=== PATIENT | male | born 1955 | race Caucasian/White ===

== ENCOUNTER → 2016-07-19 | Outpatient (REF) | payer BC ==
[~2016-07-19] MED LIST: AMLO5TAB2 PO; ASPI81TA85 PO; CIPR500T89 PO; CRES40TA PO; FLOM5CAP PO; LOSA25TA8 PO; LOSA50TA20 PO; OMEP40CA2 PO; PROS5TAB PO; PYRI200T5 PO
== END ==
LOC: M SMT 16:58
PROVIDERS: ATTEND Nurse Practitioner Women's Health
DX: Z00.00 Encounter for general adult medical examination without abnormal findings (principal)

== ENCOUNTER → 2016-08-03 | Outpatient (CLI) | payer BC ==
[2016-08-03 15:13] LABS: MEAN CORPUSCULAR HEMOGLOBIN 29.1 pg (27.0-33.0); MEAN CORPUSCULAR HGB CONC 33.5 g/dl (32.0-36.5); MEAN CORPUSCULAR VOLUME 86.8 fl (80.0-96.0); RED CELL DISTRIBUTION WIDTH 12.9 % (11.5-14.5); WHITE BLOOD COUNT 6.7 K/mm3 (4.0-10.0)
[2016-08-03 15:27] LABS: ANION GAP 6 MEQ/L (8-16); BLOOD UREA NITROGEN 20 MG/DL (7-18); CALCIUM LEVEL 8.9 MG/DL (8.5-10.1); CARBON DIOXIDE LEVEL 29 MEQ/L (21-32); CHLORIDE LEVEL 105 MEQ/L (98-107); CREATININE FOR GFR 1.06 MG/DL (0.70-1.30); GLOMERULAR FILTRATION RATE > 60.0 (>56); GLUCOSE, FASTING 105 MG/DL (70-105); POTASSIUM SERUM 4.1 MEQ/L (3.5-5.1); SODIUM LEVEL 140 MEQ/L (136-145)
--- NOTE | 2016-08-03 15:43 | REP ---
Chest two views HISTORY: Preoperative Comparison: 01/17/2016 The lungs are clear. The heart is normal in size. The pulmonary vasculature is normal in appearance. The bony structure is intact. IMPRESSION: No acute disease. Signed by Lionel King MD 08/03/2016 03:35 P
--- NOTE | 2016-08-03 17:39 | ECGEPIP ---
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 Prominent R waves in V2 and V3; RVH versus prior PWMI. Subtle nonspecific ST/T-wave abnormalities Not significant change from 01/17/16. Electronically Signed On 08-03-2016 17:39:43 EST by Dragan Morillo
== END ==
LOC: M LAB 14:42
PROVIDERS: ATTEND Urology
DX: Z01.818 Encounter for other preprocedural examination (principal)

== ENCOUNTER → 2016-08-10 | Outpatient (REF) | payer BC | LOC: M LAB REF 19:21 | PROVIDERS: ATTEND Urology | DX: N32.0 Bladder-neck obstruction (principal); Z01.818 Encounter for other preprocedural examination ==

== ENCOUNTER → 2016-08-18 | Day surgery (SDC) | payer BC ==
[~2016-08-18] VITALS: Ht 175.3 cm; Wt 109.3 kg
[~2016-08-18] MED LIST changes: +ACETAMINOPHEN TAB 650MG DOSE (2X325MG) PO PRN; +GENTAMICIN 80 MG in APPROPRIATE DILUENT 1 EA IV ONE; +KETOROLAC 60 MG/2 ML VIAL (J1885) As Ordered ONE; +LIDOCAINE 2% INJ 100 MG/5 ML SDV (FOR ANES.) As Ordered ONE; +LR 1,000 ML IV SCH; +MIDAZOLAM INJ 2 MG/2 ML VIAL (J2250) As Ordered ONE; +ONDANSETRON 4MG/2ML VIAL (J2405) As Ordered ONE; +ONDANSETRON 4MG/2ML VIAL (J2405) IV PRN; +PERCOCET 5MG/325MG TAB PO PRN; +PROPOFOL 500 MG/50 ML VIAL As Ordered ONE; +VANCOMYCIN HCL 1,000 MG, VIAL MATE ADAPTER 1 EACH in D5W 250 ML IV ONE; +dexameTHASONE 4 MG/ML 1ML VIAL (J1100) As Ordered ONE; +fentaNYL 100 MCG/2 ML INJECTION (J3010) As Ordered ONE; +fentaNYL 100 MCG/2 ML INJECTION (J3010) IV PRN; +oxyBUTYnin 5 MG TAB PO PRN
[2016-08-18 13:00] VITALS: BP 147/94
--- NOTE | 2016-08-19 10:41 | RO ---
DATE OF PROCEDURE: 08/18/2016 PREPROCEDURE DIAGNOSIS: Bladder neck contracture. POSTPROCEDURE DIAGNOSIS: Bladder neck contracture. OPERATIVE PROCEDURE: Cystoscopy, button transurethral electrovaporization of the bladder neck. SURGEON: Thony Morales MD EXPORT PACKER: None. ANESTHESIA: General. OPERATIVE INDICATIONS: This is a 61-year-old male who underwent a cystoscopy with button transurethral electrovaporization of the prostate approximately 3-4 months ago. Since that time, he has developed increased lower urinary tract symptoms including productive voiding symptoms. He had a cystoscopy done in the office recently that was notable for a very narrow caliber bladder neck contracture. It was recommended that he be brought to the operating room today for the above listed procedure. DESCRIPTION OF PROCEDURE: The patient was brought to the operating room and general anesthesia was induced. Culture specific antibiotics were infused. He was then placed in dorsal lithotomy position, prepped and draped in usual sterile fashion. At this point, the button resectoscope was inserted into urethral meatus and advanced into the prosthetic urethra. At this point, there was a very narrow caliber bladder neck contracture which I could not advance the scope through. At this point, I began vaporizing this tissue circumferentially until there was a nice wide open channel into the bladder. I tried not to use too much cautery to try to preserve vascularity. At this point, the button resectoscope was removed and #18-Tunisian Venegas catheter was inserted into the bladder and the balloon was filled with 15 mL of sterile water. At the end of the procedure, the fluid drained clear. The catheter was connected to gravity drainage. This marked the conclusion of the procedure. The patient was then taken out of dorsal lithotomy position, awakened from anesthesia, transported to the recovery room in stable condition. ESTIMATED BLOOD LOSS: 0 mL. COMPLICATIONS: None. SPECIMENS: None. PLAN: The patient will be discharged home with catheter in place. He will followup in the clinic next week for catheter removal and a voiding trial. ANA ROSA
== END | disposition home or self-care (01) ==
LOC: M SDC 07:47
PROVIDERS: ATTEND Urology
DX: N32.0 Bladder-neck obstruction (principal); N40.0 Benign prostatic hyperplasia without lower urinary tract symptoms; R35.0 Frequency of micturition; E78.5 Hyperlipidemia, unspecified; K21.9 Gastro-esophageal reflux disease without esophagitis; I10 Essential (primary) hypertension; M25.561 Pain in right knee; M25.562 Pain in left knee; G47.33 Obstructive sleep apnea (adult) (pediatric); F10.10 Alcohol abuse, uncomplicated; R06.02 Shortness of breath; R06.83 Snoring; Z88.8 Allergy status to other drugs, medicaments and biological substances; Z79.899 Other long term (current) drug therapy; Z87.891 Personal history of nicotine dependence
CPT/HCPCS: 52214; J0690; J1100; J1580; J1885; J2250; J2405; J3010; J3370

== ENCOUNTER → 2016-09-07 | Outpatient (REF) | payer BC ==
[~2016-09-07] MED LIST changes: -ACETAMINOPHEN TAB 650MG DOSE (2X325MG) PO PRN; -GENTAMICIN 80 MG in APPROPRIATE DILUENT 1 EA IV ONE; -KETOROLAC 60 MG/2 ML VIAL (J1885) As Ordered ONE; -LIDOCAINE 2% INJ 100 MG/5 ML SDV (FOR ANES.) As Ordered ONE; -LR 1,000 ML IV SCH; -MIDAZOLAM INJ 2 MG/2 ML VIAL (J2250) As Ordered ONE; -ONDANSETRON 4MG/2ML VIAL (J2405) As Ordered ONE; -ONDANSETRON 4MG/2ML VIAL (J2405) IV PRN; -PERCOCET 5MG/325MG TAB PO PRN; -PROPOFOL 500 MG/50 ML VIAL As Ordered ONE; -VANCOMYCIN HCL 1,000 MG, VIAL MATE ADAPTER 1 EACH in D5W 250 ML IV ONE; -dexameTHASONE 4 MG/ML 1ML VIAL (J1100) As Ordered ONE; -fentaNYL 100 MCG/2 ML INJECTION (J3010) As Ordered ONE; -fentaNYL 100 MCG/2 ML INJECTION (J3010) IV PRN; -oxyBUTYnin 5 MG TAB PO PRN
== END ==
LOC: M SMT 16:57
PROVIDERS: ATTEND Urology
DX: R30.0 Dysuria (principal)

== ENCOUNTER → 2017-01-05 | Outpatient (REF) | payer BC ==
[~2017-01-05] MED LIST changes: +CIPR-249 PO; -CIPR500T89 PO; +PYRI1TAB5 PO; -PYRI200T5 PO
[2017-01-05 20:00] LABS: ALBUMIN 3.7 GM/DL (3.2-5.2); ALBUMIN/GLOBULIN RATIO 1.23 (1.00-1.93); ALKALINE PHOSPHATASE 77 U/L (45-117); ALT/SGPT 25 U/L (12-78); ANION GAP 8 MEQ/L (8-16); AST/SGOT 15 U/L (15-37); BILIRUBIN,TOTAL 0.9 MG/DL (0.2-1.0); BLOOD UREA NITROGEN 21 MG/DL (7-18); CALCIUM LEVEL 9.2 MG/DL (8.5-10.1); CARBON DIOXIDE LEVEL 29 MEQ/L (21-32); CHLORIDE LEVEL 105 MEQ/L (98-107); CHOLESTEROL LEVEL 186 MG/DL (<200); CREATININE FOR GFR 1.03 MG/DL (0.70-1.30); FREE T4 1.05 NG/DL (0.76-1.46); GLOMERULAR FILTRATION RATE > 60.0 (>56); GLUCOSE, FASTING 95 MG/DL (70-105); MAGNESIUM LEVEL 2.2 MG/DL (1.8-2.4); POTASSIUM SERUM 3.5 MEQ/L (3.5-5.1); SODIUM LEVEL 142 MEQ/L (136-145); TOTAL PROTEIN 6.7 GM/DL (6.4-8.2); TRIGLYCERIDES LEVEL 196 MG/DL (<150)
== END ==
LOC: M SFHCADAM 15:33
PROVIDERS: ATTEND Physician Assistant
DX: I10 Essential (primary) hypertension (principal); R25.2 Cramp and spasm; G56.03 Carpal tunnel syndrome, bilateral upper limbs; R20.0 Anesthesia of skin; R73.01 Impaired fasting glucose; E78.4 Other hyperlipidemia

== ENCOUNTER → 2017-02-01 | Outpatient (REF) | payer BC ==
[2017-02-01 17:07] LABS: BASO % 0.3 % (0.0-1.0); EOS % 0.4 % (0.0-3.0); LARGE UNSTAINED CELL # 0.1 K/mm3 (0.0-0.4); LARGE UNSTAINED CELL % 1.4 % (0.0-4.0); LYMPH # 1.4 K/mm3 (1.5-4.5); LYMPH % 17.7 % (24.0-44.0); MEAN CORPUSCULAR HEMOGLOBIN 31.6 pg (27.0-33.0); MEAN CORPUSCULAR HGB CONC 34.9 g/dl (32.0-36.5); MEAN CORPUSCULAR VOLUME 90.5 fl (80.0-96.0); MONO # 0.4 K/mm3 (0.0-0.8); MONO % 5.5 % (0.0-5.0); NEUTROPHILS # 5.8 K/mm3 (1.8-7.7); NEUTROPHILS % 74.8 % (36.0-66.0); PLATELET COUNT, AUTOMATED 197 k/mm3 (150-450); RED CELL DISTRIBUTION WIDTH 13.1 % (11.5-14.5); WHITE BLOOD COUNT 7.8 K/mm3 (4.0-10.0)
[2017-02-01 17:55] LABS: URIC ACID 6.1 MG/DL (3.5-7.2)
[2017-02-01 18:11] LABS: ERYTHROCYTE SEDIMENTATION RATE 4 mm/hr (0-20)
[2017-02-04 00:06] LABS: Lyme Disease IgG/IgM Antibodie <0.91 ISR (0.00-0.90); Lyme Disease IgM Ab Quantitati <0.80 index (0.00-0.79)
== END ==
LOC: M LAB REF 15:46
PROVIDERS: ATTEND Physician Assistant Surgical
DX: M19.031 Primary osteoarthritis, right wrist (principal)

== ENCOUNTER → 2017-07-31 | Outpatient (REF) | payer BC ==
[2017-07-31 12:45] LABS: HEMATOCRIT 42.6 % (42.0-52.0); HEMOGLOBIN 14.5 g/dl (14.0-18.0); MEAN CORPUSCULAR HEMOGLOBIN 29.8 pg (27.0-33.0); MEAN CORPUSCULAR VOLUME 87.7 fl (80.0-96.0); PLATELET COUNT, AUTOMATED 171 10^3/uL (150-450); RED BLOOD COUNT 4.86 10^6/uL (4.30-6.10); RED CELL DISTRIBUTION WIDTH 12.4 % (11.5-14.5); WHITE BLOOD COUNT 6.9 10^3/uL (4.0-10.0)
[2017-07-31 13:06] LABS: ALBUMIN 4.1 GM/DL (3.2-5.2); ALBUMIN/GLOBULIN RATIO 1.24 (1.00-1.93); ALKALINE PHOSPHATASE 82 U/L (45-117); ALT/SGPT 28 U/L (12-78); ANION GAP 7 MEQ/L (8-16); AST/SGOT 17 U/L (7-37); BILIRUBIN,TOTAL 0.7 MG/DL (0.2-1.0); BLOOD UREA NITROGEN 18 MG/DL (7-18); CALCIUM LEVEL 9.4 MG/DL (8.8-10.2); CARBON DIOXIDE LEVEL 32 MEQ/L (21-32); CHLORIDE LEVEL 101 MEQ/L (98-107); CHOLESTEROL LEVEL 176 MG/DL (<200); CHOLESTEROL RISK RATIO 2.588 (<5); CREATININE FOR GFR 0.87 MG/DL (0.70-1.30); GLOMERULAR FILTRATION RATE > 60.0 (>49); GLUCOSE, FASTING 106 MG/DL (70-100); HDL CHOLESTEROL 68 MG/DL (>40); LDL CHOLESTEROL 62.6 MG/DL (<100); NON-HDL-C 108 MG/DL; POTASSIUM SERUM 4.8 MEQ/L (3.5-5.1); SODIUM LEVEL 140 MEQ/L (136-145); TOTAL PROTEIN 7.4 GM/DL (6.4-8.2); TRIGLYCERIDES LEVEL 227 MG/DL (<150)
[2017-07-31 13:11] LABS: ESTIMATED AVERAGE GLUCOSE 120 MG/DL (60-110); HEMOGLOBIN A1c 5.8 %
== END ==
LOC: M SFHCADAM 09:17
DX: R73.01 Impaired fasting glucose (principal); I10 Essential (primary) hypertension; E78.5 Hyperlipidemia, unspecified
CPT/HCPCS: 80053

== ENCOUNTER → 2017-08-10 | Outpatient (CLI) | payer BC | LOC: M ADAMS 08:50 | DX: S20.212A Contusion of left front wall of thorax, initial encounter (principal); X58.XXXA Exposure to other specified factors, initial encounter; Y92.89 Other specified places as the place of occurrence of the external cause | CPT/HCPCS: 71101 ==

== ENCOUNTER → 2017-10-11 | Outpatient (CLI) | payer BC | LOC: M ADAMS 13:49 | DX: M19.011 Primary osteoarthritis, right shoulder (principal); M25.552 Pain in left hip | CPT/HCPCS: 73030 ==

== ENCOUNTER → 2018-02-03 | Outpatient (REF) | payer BC | LOC: M LAB REF 09:28 | DX: N41.0 Acute prostatitis (principal) | CPT/HCPCS: 87086 ==

== ENCOUNTER → 2018-03-06 | Outpatient (REF) | payer BC ==
[2018-03-07 13:42] LABS: APPEARANCE, URINE CLEAR (CLEAR); BACTERIA, URINE AUTO NEGATIVE (NEGATIVE); BILIRUBIN, URINE AUTO NEGATIVE (NEGATIVE); BLOOD, URINE BLOOD NEGATIVE (NEGATIVE); COLOR, URINE STRAW (YELLOW); GLUCOSE, URINE (UA) AUTO NEGATIVE (NEGATIVE); KETONE, URINE AUTO NEGATIVE (NEGATIVE); LEUKOCYTE ESTERASE, URINE AUTO NEGATIVE (NEGATIVE); NITRITE, URINE AUTO NEGATIVE (NEGATIVE); PROTEIN, URINE AUTO NEGATIVE (NEGATIVE); RBC, URINE AUTO 0 /HPF (0-3); SPECIFIC GRAVITY URINE AUTO 1.013 (1.002-1.035); SQUAMOUS EPITHELIAL CELL UR AU 0 /HPF (0-6); UROBILINOGEN, URINE AUTO 0.2 mg/dL (0.0-2.0); WBC, URINE AUTO 3 /HPF (0-3)
== END ==
LOC: M SMT 03-07 12:59
DX: R30.0 Dysuria (principal)
CPT/HCPCS: 81001

== ENCOUNTER → 2018-03-08 | Outpatient (REF) | payer BC ==
[2018-03-08 14:23] LABS: APPEARANCE, URINE CLEAR (CLEAR); BACTERIA, URINE AUTO NEGATIVE (NEGATIVE); BILIRUBIN, URINE AUTO NEGATIVE (NEGATIVE); BLOOD, URINE BLOOD NEGATIVE (NEGATIVE); COLOR, URINE AMBER (YELLOW); GLUCOSE, URINE (UA) AUTO NEGATIVE (NEGATIVE); KETONE, URINE AUTO NEGATIVE (NEGATIVE); LEUKOCYTE ESTERASE, URINE AUTO NEGATIVE (NEGATIVE); MUCUS, URINE SMALL (NEGATIVE); NITRITE, URINE AUTO POSITIVE (NEGATIVE); PROTEIN, URINE AUTO NEGATIVE (NEGATIVE); RBC, URINE AUTO 0 /HPF (0-3); SPECIFIC GRAVITY URINE AUTO 1.015 (1.002-1.035); SQUAMOUS EPITHELIAL CELL UR AU 0 /HPF (0-6); WBC, URINE AUTO 6 /HPF (0-3)
== END ==
LOC: M SMT 13:26
DX: R30.0 Dysuria (principal)
CPT/HCPCS: 81001

== ENCOUNTER → 2018-06-14 | Outpatient (REF) | payer BC ==
[~2018-06-14] MED LIST changes: -AMLO5TAB2 PO; +AMLO5TAB6 PO; +FLOM0.4C39 PO; -FLOM5CAP PO; +LOSA25TA14 PO; -LOSA25TA8 PO; -LOSA50TA20 PO; +LOSA50TA88 PO
[2018-06-14 18:12] LABS: APPEARANCE, URINE MANUAL HAZY (CLEAR); COLOR, URINE MANUAL LT YELLOW (YELLOW); SPECIFIC GRAVITY,URINE MANUAL 1.025 (1.002-1.035)
[2018-06-14 18:13] LABS: BILIRUBIN, URINE MANUAL NEGATIVE (NEGATIVE); BLOOD URINE MANUAL POSITIVE (NEGATIVE); GLUCOSE, URINE (UA) MANUAL NEGATIVE (NEGATIVE); KETONE, URINE MANUAL NEGATIVE (NEGATIVE); LEUKOCYTE ESTERASE, URINE MAN POSITIVE (NEGATIVE); NITRITE, URINE MANUAL POSITIVE (NEGATIVE); PROTEIN, URINE MANUAL TRACE mg/dL (NEGATIVE); UROBILINOGEN, URINE MANUAL NORMAL (NORMAL)
[2018-06-14 18:14] LABS: BACTERIA, URINE LARGE AMOUNT; HYALINE CAST, URINE NONE SEEN /lpf (0-1); SQUAMOUS EPITHELIAL CELL URINE SMALL AMOUNT /hpf (SMALL AMT)
== END ==
LOC: M SMT 16:43
PROVIDERS: ATTEND Urology
DX: R30.0 Dysuria (principal)

== ENCOUNTER → 2018-07-01 | Outpatient (REF) | payer BC ==
[2018-07-01 20:19] LABS: APPEARANCE, URINE HAZY (CLEAR); BACTERIA, URINE AUTO NEGATIVE (NEGATIVE); BILIRUBIN, URINE AUTO NEGATIVE (NEGATIVE); BLOOD, URINE BLOOD 3+ (NEGATIVE); COLOR, URINE YELLOW (YELLOW); GLUCOSE, URINE (UA) AUTO NEGATIVE (NEGATIVE); KETONE, URINE AUTO NEGATIVE (NEGATIVE); LEUKOCYTE ESTERASE, URINE AUTO TRACE (NEGATIVE); MUCUS, URINE SMALL (NEGATIVE); NITRITE, URINE AUTO NEGATIVE (NEGATIVE); PROTEIN, URINE AUTO 1+ mg/dL (NEGATIVE); RBC, URINE AUTO TNTC /HPF (0-3); SQUAMOUS EPITHELIAL CELL UR AU 0 /HPF (0-6); UROBILINOGEN, URINE AUTO 0.2 mg/dL (0.0-2.0); WBC, URINE AUTO 6 /HPF (0-3)
== END ==
LOC: M LAB REF 12:04
PROVIDERS: ATTEND Urology
DX: R30.0 Dysuria (principal)

== ENCOUNTER → 2018-07-15 | Outpatient (REF) | payer BC | LOC: M SMT 17:54 | PROVIDERS: ATTEND Urology | DX: R30.0 Dysuria (principal) ==

== ENCOUNTER → 2018-09-27 | Outpatient (REF) | payer BC | LOC: M SMT 17:17 | PROVIDERS: ATTEND Urology | DX: R35.0 Frequency of micturition (principal) ==

== ENCOUNTER 2018-10-12 10:19 | Emergency (ER) | payer BC ==
[~2018-10-12] VITALS: Ht 175.3 cm; Wt 106.8 kg
[2018-10-12] MEDS ORDERED: IBUPROFEN 800 MG TAB PO ONE (10:45)
[2018-10-12] MEDS ORDERED: ROBA500T PO (11:42)
[2018-10-12] MEDS ORDERED: NORC1TAB7 PO ×2 (11:42→11:43)
--- NOTE | 2018-10-12 11:43 | REP ---
LUMBAR SPINE, FIVE VIEWS: HISTORY: Back pain. There is no acute fracture or subluxation. The L3-4 through L5-S1 intervertebral discs are decreased in height consistent with disc degeneration. Osteophytes are present throughout the lumbar spine. A 2.2 cm calcification is present in the midline pelvis. This may represent prostatic calcification. IMPRESSION: Degenerative change as described above. Electronically Signed by Lionel King MD 10/12/2018 11:49 A
[2018-10-12 11:45] VITALS: BP 142/84
== END 2018-10-12 11:50 | disposition home or self-care (01) ==
LOC: M ED 10:19
DX: S39.012A Strain of muscle, fascia and tendon of lower back, initial encounter (principal); M51.37 Other intervertebral disc degeneration, lumbosacral region; M47.897 Other spondylosis, lumbosacral region; I10 Essential (primary) hypertension; E78.9 Disorder of lipoprotein metabolism, unspecified; N40.0 Benign prostatic hyperplasia without lower urinary tract symptoms; G47.33 Obstructive sleep apnea (adult) (pediatric); Z79.899 Other long term (current) drug therapy; Z87.891 Personal history of nicotine dependence

== ENCOUNTER → 2018-10-15 | Outpatient (REF) | payer BC ==
[~2018-10-15] MED LIST changes: +NORC1TAB7 PO; +ROBA500T PO
[2018-10-15 18:50] LABS: APPEARANCE, URINE HAZY (CLEAR); BACTERIA, URINE AUTO NEGATIVE (NEGATIVE); BILIRUBIN, URINE AUTO NEGATIVE (NEGATIVE); BLOOD, URINE BLOOD 2+ (NEGATIVE); COLOR, URINE YELLOW (YELLOW); GLUCOSE, URINE (UA) AUTO NEGATIVE (NEGATIVE); KETONE, URINE AUTO NEGATIVE (NEGATIVE); LEUKOCYTE ESTERASE, URINE AUTO 3+ (NEGATIVE); MUCUS, URINE SMALL (NEGATIVE); NITRITE, URINE AUTO NEGATIVE (NEGATIVE); PROTEIN, URINE AUTO NEGATIVE (NEGATIVE); RBC, URINE AUTO 146 /HPF (0-3); SPECIFIC GRAVITY URINE AUTO 1.017 (1.002-1.035); SQUAMOUS EPITHELIAL CELL UR AU 0 /HPF (0-6); UROBILINOGEN, URINE AUTO 0.2 mg/dL (0.0-2.0); WBC, URINE AUTO TNTC /HPF (0-3)
== END ==
LOC: M SMT 17:16
PROVIDERS: ATTEND Nurse Practitioner Women's Health
DX: N39.0 Urinary tract infection, site not specified (principal)

== ENCOUNTER → 2018-11-01 | Outpatient (CLI) | payer BC ==
[2018-11-01 13:54] LABS: HEMATOCRIT 44.6 % (42.0-52.0); HEMOGLOBIN 14.8 g/dl (13.5-17.5); MEAN CORPUSCULAR HGB CONC 33.2 g/dl (32.0-36.5); MEAN CORPUSCULAR VOLUME 90.5 fl (80.0-96.0); PLATELET COUNT, AUTOMATED 174 10^3/uL (150-450); RED BLOOD COUNT 4.93 10^6/uL (4.30-6.10); WHITE BLOOD COUNT 7.2 10^3/uL (4.0-10.0)
[2018-11-01 14:05] LABS: INR 0.94; PARTIAL THROMBOPLASTIN TIME 25.1 SECONDS (25.4-37.6); PROTHROMBIN TIME 12.7 SECONDS (12.1-14.4)
[2018-11-01 14:17] LABS: APPEARANCE, URINE CLEAR (CLEAR); BACTERIA, URINE AUTO NEGATIVE (NEGATIVE); BILIRUBIN, URINE AUTO NEGATIVE (NEGATIVE); BLOOD, URINE BLOOD 3+ (NEGATIVE); COLOR, URINE YELLOW (YELLOW); GLUCOSE, URINE (UA) AUTO NEGATIVE (NEGATIVE); KETONE, URINE AUTO NEGATIVE (NEGATIVE); LEUKOCYTE ESTERASE, URINE AUTO NEGATIVE (NEGATIVE); NITRITE, URINE AUTO NEGATIVE (NEGATIVE); PROTEIN, URINE AUTO NEGATIVE (NEGATIVE); RBC, URINE AUTO TNTC /HPF (0-3); SPECIFIC GRAVITY URINE AUTO 1.014 (1.002-1.035); SQUAMOUS EPITHELIAL CELL UR AU 0 /HPF (0-6); UROBILINOGEN, URINE AUTO 0.2 mg/dL (0.0-2.0); WBC, URINE AUTO 2 /HPF (0-3)
[2018-11-01 14:48] LABS: BLOOD UREA NITROGEN 21 MG/DL (7-18); CALCIUM LEVEL 9.4 MG/DL (8.8-10.2); CARBON DIOXIDE LEVEL 28 MEQ/L (21-32); CHLORIDE LEVEL 106 MEQ/L (98-107); CREATININE FOR GFR 0.92 MG/DL (0.70-1.30); GLOMERULAR FILTRATION RATE > 60.0 (>49); GLUCOSE, FASTING 106 MG/DL (70-100); POTASSIUM SERUM 4.1 MEQ/L (3.5-5.1); SODIUM LEVEL 142 MEQ/L (136-145)
--- NOTE | 2018-11-01 15:17 | REP ---
REASON: Preoperative testing. COMPARISON: 08/03/2016. There has been no significant change since the prior exam. No acute patchy parenchymal opacities or pleural effusions have developed. The pleural angles are sharp and heart is not enlarged. The osseous structures are stable and intact. IMPRESSION: No evidence of acute cardiopulmonary disease. Stable findings compared to the prior exams. Electronically Signed by Fredy Connor DO 11/01/2018 06:09 P
== END ==
LOC: M SMT 11:11
PROVIDERS: ATTEND Urology
DX: N32.81 Overactive bladder (principal)

== ENCOUNTER → 2018-11-01 | Outpatient (CLI) | payer BC ==
--- NOTE | 2018-11-01 18:51 | ECGEPIP ---
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
== END ==
LOC: M EKG 11:49
PROVIDERS: ATTEND Urology
DX: N32.81 Overactive bladder (principal)

== ENCOUNTER 2018-11-06 09:39 | Day surgery (SDC) | payer BC ==
[~2018-11-06] VITALS: Ht 175.3 cm; Wt 109.7 kg
[~2018-11-06 09:39] MED LIST changes: +LIDOCAINE 1% MDV 20ML VIAL SQ PRN; +LR 1,000 ML IV ONE; +ceFAZolin SOD 1 GM in D5W MINI-BAG PLUS 50 ML IV ONE
[2018-11-06] MEDS ORDERED: ROCURONIUM BROMIDE 50 MG/5 ML VIAL As Ordered ONE (09:41)
[2018-11-06] MEDS ORDERED: LIDOCAINE 2% INJ 100 MG/5 ML SDV (FOR ANES.) As Ordered ONE ×2 (09:41→11:22)
[2018-11-06] MEDS ORDERED: PROPOFOL 200 MG/20 ML VIAL As Ordered ONE (09:41)
[2018-11-06] MEDS ORDERED: ONDANSETRON 4MG/2ML VIAL (J2405) As Ordered ONE (09:41)
[2018-11-06] MEDS ORDERED: dexameTHASONE 4 MG/ML 1ML VIAL (J1100) As Ordered ONE (09:41)
[2018-11-06] MEDS ORDERED: fentaNYL 100 MCG/2 ML INJECTION (J3010) As Ordered ONE (09:41)
[2018-11-06] MEDS ORDERED: MIDAZOLAM INJ 2 MG/2 ML VIAL (J2250) As Ordered ONE (09:41)
[2018-11-06] MEDS ORDERED: PHENYLephrine HCL 500 MCG/5 ML (100MCG/ML) SYRINGE (J2370) As Ordered ONE (17:15)
[2018-11-06] MEDS ORDERED: ePHEDrine SULFATE 25 MG/5 ML(5MG/ML) SYRINGE As Ordered ONE (17:32)
[2018-11-06] MEDS ORDERED: PERCOCET 5MG/325MG TAB PO PRN (18:15)
[2018-11-06] MEDS ORDERED: MEPERIDINE INJ 25 MG/ML VIAL (J2175) IV PRN (18:15)
[2018-11-06] MEDS ORDERED: LR 1,000 ML IV SCH (18:15)
[2018-11-06] MEDS ORDERED: METOCLOPRAMIDE INJ 10MG/2ML VIAL (J2765) IV PRN (18:15)
[2018-11-06] MEDS ORDERED: ACETAMINOPHEN TAB 650MG DOSE (2X325MG) PO PRN (18:15)
[2018-11-06] MEDS ORDERED: ONDANSETRON 4MG/2ML VIAL (J2405) IV PRN (18:15)
[2018-11-06] MEDS ORDERED: fentaNYL 100 MCG/2 ML INJECTION (J3010) IV PRN (18:15)
[2018-11-06 18:55] VITALS: BP 158/91
--- NOTE | 2018-11-07 14:53 | RO ---
DATE OF PROCEDURE: 11/06/2018 PREPROCEDURE DIAGNOSIS: Bladder neck contracture. POSTPROCEDURE DIAGNOSIS: Bladder neck contracture, bladder stone. PROCEDURE: Cystoscopy, direct vision internal urethrotomy, laser cystolitholapaxy. SURGEON: Thony Morales MD WEAPONS AND TACTICS INSTRUCTOR: None. ANESTHESIA: General. OPERATIVE INDICATIONS: This is a 63-year-old male with a history of benign prostatic hyperplasia previously treated with transurethral electrovaporization of prostate and has developed a bladder neck contracture previously. He was recently found to have another bladder contracture and was brought to the operating room today for the above listed procedure. DESCRIPTION OF PROCEDURE: The patient was brought to the operating room and general anesthesia was induced. Prophylactic antibiotics were infused. He was then placed in the dorsal lithotomy position, prepped and draped in the usual sterile fashion. At this point, resectoscope was inserted through the urethral meatus. The scope was then advanced towards the bladder neck and at the level of the bladder neck there was a pinpoint bladder neck contracture. I utilized the Gomes knife to incise the contracture at 12, 5, and 7 o'clock. I kept doing this until the bladder neck was wide open. There was pretty good hemostasis once I was done. Once the bladder neck was opened, the scope was advanced into the bladder where he was found to have an approximately 3.5 cm bladder stone. The stone was then fragmented to smaller pieces using a 1000 micron laser fiber. Once I was done fragmenting the stone, all the pieces were removed using an Ellik evacuator. Once all the fragments were removed, I once again looked at the bladder neck and confirmed good hemostasis and then scope was removed. At this point, an 18-Welsh Venegas catheter was inserted into the bladder. The balloon was filled with 10 mL of sterile water. The catheter was connected to gravity drainage. This marked conclusion of the procedure. The patient was then taken out of dorsal lithotomy position, awakened from anesthesia and sent to the recovery room in stable condition. Estimated blood loss was 5 mL. Complications: None. Specimens: Bladder stones. PLAN: The patient will followup in the clinic in approximately 1 week for catheter removal and voiding trial. ANA ROSA
[2018-11-14 00:10] LABS: COMMENT Note: (.)
== END 2018-11-06 19:00 | disposition home or self-care (01) ==
LOC: M SDC 09:39
PROVIDERS: ATTEND Urology
DX: N32.0 Bladder-neck obstruction (principal); N21.0 Calculus in bladder; I10 Essential (primary) hypertension; E78.5 Hyperlipidemia, unspecified; G47.30 Sleep apnea, unspecified; K21.9 Gastro-esophageal reflux disease without esophagitis; Z79.899 Other long term (current) drug therapy; Z88.8 Allergy status to other drugs, medicaments and biological substances; N40.0 Benign prostatic hyperplasia without lower urinary tract symptoms; E66.9 Obesity, unspecified
CPT/HCPCS: 52276; 52318; 82360; 88300; J0690; J1100; J2250; J2370; J2405; J3010

== ENCOUNTER → 2018-11-18 | Outpatient (REF) | payer BC ==
[~2018-11-18] MED LIST changes: -LIDOCAINE 1% MDV 20ML VIAL SQ PRN; -LR 1,000 ML IV ONE; -ceFAZolin SOD 1 GM in D5W MINI-BAG PLUS 50 ML IV ONE
== END ==
LOC: M LAB REF 12:44
PROVIDERS: ATTEND Physician Assistant
DX: N39.0 Urinary tract infection, site not specified (principal)

== ENCOUNTER 2018-12-27 09:49 | Inpatient (IN) | payer BC ==
[~2018-12-27] VITALS: Ht 172.7 cm; Wt 105.3 kg
[2018-12-27] MEDS ORDERED: ONDANSETRON 4MG/2ML VIAL (J2405) IV ONE (10:00)
[2018-12-27] MEDS ORDERED: KETOROLAC 30 MG/ML VIAL (J1885) IV ONE ×3 (10:00→21:00)
[2018-12-27] MEDS ORDERED: ACETAMINOPHEN 500 MG TAB PO ONE (10:00)
[2018-12-27] MEDS ORDERED: HYDR-3713 PO (10:32)
[2018-12-27] MEDS ORDERED: ASPI81TA85 PO (10:32)
--- NOTE | 2018-12-27 10:47 | REP ---
Lumbar spine series: Five views: History: Back pain with radiation to the left leg. Comparison study: October 12, 2018. Findings: Lumbar vertebral body heights are preserved. Alignment is normal. There is advanced degenerative disc disease with osteophyte formation anteriorly in the lower thoracic spine. Degenerative disc changes with anterior spurring are seen and L3-4, L4-5 and to a lesser extent, L5-S1. The 4-5 and 3-4 discs are slightly narrowed. These changes are radiographically stable from October 14, 2018 prior study. Normal caliber aorta is seen. There are two calcific opacities in the anterior upper abdomen. There is a calcification in the anterior pelvis as well. The previously noted bladder calculi have been removed. There is mild facet hypertrophy bilaterally at L4-5 and L5-S1. Sacrum and SI joints are intact. Psoas margins are symmetric. Impression: Degenerative spondylosis changes radiographically stable from October 12, 2018. Anterior abdominal and pelvic calcifications noted. Vascular calcification is noted. Electronically Signed by Charles Roa MD 12/27/2018 12:35 P
[2018-12-27 10:58] LABS: BASO % 0.1 % (0.0-1.0); EOS % 0.4 % (0.0-3.0); HEMATOCRIT 41.3 % (42.0-52.0); HEMOGLOBIN 14.6 g/dl (13.5-17.5); LYMPH # 1.4 10^3/uL (1.5-4.5); LYMPH % 20.2 % (24.0-44.0); MEAN CORPUSCULAR HEMOGLOBIN 30.8 pg (27.0-33.0); MEAN CORPUSCULAR HGB CONC 35.4 g/dl (32.0-36.5); MEAN CORPUSCULAR VOLUME 87.1 fl (80.0-96.0); MONO # 0.5 10^3/uL (0.0-0.8); MONO % 6.7 % (0.0-5.0); NEUTROPHILS # 4.9 10^3/uL (1.8-7.7); NEUTROPHILS % 72.3 % (36.0-66.0); PLATELET COUNT, AUTOMATED 186 10^3/uL (150-450); RED BLOOD COUNT 4.74 10^6/uL (4.30-6.10); WHITE BLOOD COUNT 6.8 10^3/uL (4.0-10.0)
[2018-12-27] MEDS ORDERED: MORPHINE 2 MG/ML 1ML SYRINGE (J2270) IV ONE ×3 (11:15→14:30)
[2018-12-27 11:20] LABS: ERYTHROCYTE SEDIMENTATION RATE 5 mm/hr (0-20)
--- NOTE | 2018-12-27 13:51 | REP ---
MRI LUMBAR SPINE WITHOUT CONTRAST: HISTORY: Back pain radiating to the left leg. Comparison radiographs are from December 27, 2018. TECHNIQUE: Sagittal and axial T1- and T2-weighted scans are acquired in the usual fashion with and without fat saturation. Sequences include spin echo, turbo spin echo, and STIR imaging sequences. MRI FINDINGS: Lumbar vertebral body heights are preserved. Alignment is normal. There is no evidence of spondylolysis or spondylolisthesis. No extra vertebral abnormality is appreciated. Normal caliber aorta. The tip of the conus medullaris is normal in position and appearance at T12-L1. Axial and sagittal images obtained at the L1-2 disc level show minimal diffuse disc bulging. No other abnormality. L2-L3, there is a small left posterior focal disc protrusion subtly indenting the ventral margin of the thecal sac. No central canal stenosis is noted. No neural foraminal encroachment is seen. At L3-4, there is degenerative disc narrowing. There is diffuse disc bulging. Ligamentum flavum and facet hypertrophy are present. Canal size at L3-4 is minimally narrowed due to these factors in addition to developmentally short pedicles. Midline AP dimension of the thecal sac is 11 mm. No foraminal encroachment is seen. At L4-5, there is mild to moderate central canal stenosis due to diffuse disc bulging, moderate ligamentum flavum and facet hypertrophy, and developmentally short pedicles. The right facet hypertrophy is more prominent than left. There is a left posterior disc protrusion with caudal extrusion which further compresses the thecal sac. The caudal disc protrusion extends to the lateral recess at L5 compressing the left fifth root. The midline AP dimension of the thecal sac at L4-5 is 8 mm. There are reactive marrow changes on either side of the L4-5 disc. At L5-S1, there is a central focal disc protrusion which subtly indents the ventral margin of the thecal sac. There is facet hypertrophy bilaterally. There is a right foraminal disc bulge producing right foraminal narrowing. IMPRESSION: Degenerative spondylosis changes. The dominant abnormality is at L4-5 where there is combined congenital and acquired central canal stenosis aggravated by a left posterior disc protrusion with a caudally extruded fragment compressing the left fifth root. Minimal canal narrowing is seen at L3-4. Right foraminal encroachment is noted at L5-S1. Electronically Signed by Charles Roa MD 12/27/2018 08:11 P
[2018-12-27] MEDS ORDERED: ONDANSETRON 4MG/2ML VIAL (J2405) IV PRN (15:45)
[2018-12-27] MEDS ORDERED: KETOROLAC 30 MG/ML VIAL (J1885) IV PRN (15:45)
[2018-12-27] MEDS: NS 1,000 ML IV SCH (15:53)
[2018-12-27] MEDS ORDERED: GABAPENTIN 100 MG CAP PO ONE (16:00)
[2018-12-27] MEDS ORDERED: NALOXONE INJ 0.4 MG/1 ML VIAL (J2310) IV PRN (16:00)
[2018-12-27] MEDS ORDERED: tiZANidine 4 MG TAB PO ONE (16:00)
[2018-12-27] MEDS ORDERED: LOSA50TA88 PO (16:05)
[2018-12-27] MEDS ORDERED: OMEP-218 PO (16:05)
[2018-12-27] MEDS: LIDOCAINE 5% (LIDODERM) PATCH TD SCH (16:09)
[2018-12-27 16:32] LABS: BASO % 0.3 % (0.0-1.0); EOS # 0.1 10^3/uL (0.0-0.50); EOS % 0.8 % (0.0-3.0); HEMATOCRIT 39.5 % (42.0-52.0); HEMOGLOBIN 13.7 g/dl (13.5-17.5); LYMPH # 2.1 10^3/uL (1.5-4.5); LYMPH % 31.3 % (24.0-44.0); MEAN CORPUSCULAR HEMOGLOBIN 29.6 pg (27.0-33.0); MEAN CORPUSCULAR HGB CONC 34.7 g/dl (32.0-36.5); MEAN CORPUSCULAR VOLUME 85.3 fl (80.0-96.0); MONO # 0.6 10^3/uL (0.0-0.8); MONO % 8.9 % (0.0-5.0); NEUTROPHILS # 3.9 10^3/uL (1.8-7.7); NEUTROPHILS % 58.7 % (36.0-66.0); PLATELET COUNT, AUTOMATED 175 10^3/uL (150-450); RED BLOOD COUNT 4.63 10^6/uL (4.30-6.10); WHITE BLOOD COUNT 6.6 10^3/uL (4.0-10.0)
[2018-12-27 16:54] LABS: BLOOD UREA NITROGEN 22 MG/DL (7-18); CALCIUM LEVEL 8.5 MG/DL (8.8-10.2); CARBON DIOXIDE LEVEL 24 MEQ/L (21-32); CHLORIDE LEVEL 106 MEQ/L (98-107); CREATININE FOR GFR 0.92 MG/DL (0.70-1.30); GLOMERULAR FILTRATION RATE > 60.0 (>49); GLUCOSE, FASTING 96 MG/DL (70-100); POTASSIUM SERUM 3.7 MEQ/L (3.5-5.1); SODIUM LEVEL 138 MEQ/L (136-145)
[2018-12-27 19:30] VITALS: BP 115/73
[2018-12-27] MEDS ORDERED: traMADol 50 MG TAB PO ONE (19:30)
--- NOTE | 2018-12-27 20:04 | HPE ---
DATE OF ADMISSION: 12/27/2018 PRIMARY CARE PHYSICIAN: Lillian Gandhi. CHIEF COMPLAINT: Back pain. HISTORY OF PRESENTING ILLNESS: This is a 63-year-old male with past medical history significant for hypertension, benign prostatic hypertrophy (BPH), right inguinal mass, hyperlipidemia, lipoma, reflux, microalbuminuria, alcohol abuse, central hypertension, bilateral knee osteoarthritis, obstructive sleep apnea (LIAM) on chronic bilevel positive airway pressure (BiPAP), presents to the emergency room with two day history of back pain. Patient was at work yesterday and twisted his back at around 10 a.m. yesterday. When he got home, he had worsening pain into this morning and when he woke up, he needed to take his old hydrocodone tablet at 5:30 in the morning. He was unable to stand up on his left side and he was afraid to stand, feeling that he would fall. He describes the pain as very sharp and electrical-like, from the back shooting down into his foot, with his toes feeling numb. Patient denied any urinary urgency, frequency, flank pain, fever, chills. Denies any urinary incontinence or urinary retention. Denies constipation or diarrhea. Patient has had no prior episode in the past. He denies any recent falls, any trauma to the back. MRI of the lumbar spine shows the disc bulging and spinal stenosis, degenerative spondylosis with disc protrusion with minimal canal narrowing at L3-L4, encroachment around L5-S1. There is compression of the left fifth nerve root. Hospitalist service was called to admit. Patient otherwise denies any changes in weight, appetite, vision. No nausea, vomiting, diarrhea, abdominal pain, constipation. He also denies chest pain, pressure, tightness, lightheadedness, dizziness, any falls. No prior history of coronary artery disease (CAD) or minor heart failure. He denies any rhinorrhea, ear discharge, pain, tinnitus, sore throat, neck pain. Denies any history of anxiety/depression. PAST MEDICAL HISTORY: 1. Hyperlipidemia. 2. Right inguinal mass. 3. Benign prostatic hypertrophy (BPH) status post transurethral resection of the prostate (TURP) 11/2018. 4. Lipoma. 5. Reflux. 6. Microalbuminuria. 7. Alcohol abuse. 8. Hypertension. 9. Bilateral knee osteoarthritis. 10. Obstructive sleep apnea (LIAM) on bilevel positive airway pressure (BiPAP). ALLERGIES: LISINOPRIL, causing cough. SURGICAL HISTORY: 1. Back surgery 2005. 2. Surgery on the left anterior cruciate ligament (ACL) in his 30s. 3. Previous transurethral resection of the prostate (TURP) procedure in 2016. HOME MEDICATIONS: Please see below. FAMILY HISTORY: Father in his 40s with motor vehicle accident. Mother age 64 with coronary artery disease (CAD). One brother with myocardial infarction (VT), cerebrovascular accident (CVA), at 59. Two sisters alive and well. Two sons, no known medical problems. No personal history of diabetes, CAD, CVA, or cancer. Patient previously smoked cigarettes. Quite about 10 years ago. History of alcohol abuse, but currently none. No recreational drug use. 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 Lives with his at home, who has Parkinson's. Has a son who helps out. REVIEW OF SYSTEMS: Per history of present illness(HPI), a 12-point system otherwise negative. PHYSICAL EXAMINATION: Temperature 97.3, pulse 77 sinus, respiratory rate 20, blood pressure 110/65, 100% on room air. GENERAL: Patient is awake, alert, oriented times three. Answering questions appropriately. HEENT: Pupils are equally round, reactive to light and accommodation. Extraocular muscles are intact. Normocephalic, atraumatic. Moist mucous membranes. No cervical lymphadenopathy or thyromegaly. Tongue is midline. Uvula is midline. NECK: Supple. Full range of motion. No jugular venous distention (JVD). LUNGS: Clear to auscultation. No wheezing, rales or rhonchi. Air entry is equal bilaterally. HEART: S1, S2. Sinus rhythm. No murmurs, rubs or gallops. ABDOMEN: Obese, soft, nontender, nondistended. Positive bowel sounds times four quadrants. EXTREMITIES: No cyanosis, clubbing or pitting edema. MUSCULOSKELETAL: Patient has motor function of 5/5 bilateral upper extremities. No sensory disturbance. Patient has sickly sensation and complains of numbness in bilateral toes. He is able to raise his right leg to about 30 degrees with no discomfort. Left lower extremity could not be raised due to severe pain in the back. RECTAL EXAMINATION: Was done by emergency room (ER) physician, Dr. Rachna Watson, which supposedly had normal rectal tone. This was refused by the patient the second time on this examination. LABORATORY DATA: White count 6.6, hemoglobin 13, hematocrit 39, platelet count of 175. Sodium 138, potassium 3.7, chloride 106, bicarbonate 24, BUN 22, creatinine 0.92, glucose of 96, calcium 8.5. CRP less than 0.30. MICROBIOLOGY: Two sets of blood cultures are pending. No urinalysis is available. IMAGING: MRI of the lumbar spine shows lumbar vertebral body height preserved. Alignment is normal. No evidence of spondylolysis or spondylolisthesis. No extra vertebral abnormality. Normal caliber aorta. Tip of the conus medullaris is normal in appearance at T12-L1. L2-L3, small left posterior focal disc protrusion subtly indenting the ventral margin of the thecal sac. No central canal stenosis. No neural foraminal encroachment. At L3-4, there is degenerative disc narrowing. Diffuse disc bulging. Ligamentum flavum and facet hypertrophy are present. Canal size at L3-4 is minimally narrowed due to these factors in addition to developmentally short pedicles. Midline AP dimension of thecal sac is 11 mm. No foraminal encroachment is seen. At L4-5, there is mild to moderate central canal stenosis due to diffuse disc bulging, moderate ligamentum flavum and facet hypertrophy, and developmentally short pedicles. The right facet hypertrophy is more prominent than the left. There is a left posterior disc protrusion with caudal extrusion which further compresses the thecal sac. The caudal disc protrusion extends to the lateral recess at L5 compressing the left fifth root. The midline AP dimension of thecal sac at L4-5 is 8 mm. There are reactive marrow changes on either side of the L4-5 disc. At L5-S1, there is a central focal disc protrusion which subtly indents the ventral margin of the thecal sac. There is facet hypertrophy bilaterally. There is a right foraminal disc bulge producing right foraminal narrowing. ASSESSMENT AND PLAN: A 63-year-old male admitted after a traumatic injury at work, twisting his back, currently with disc protrusion at L4-S1, with minimal compression of the L5 fifth root. Patient will be admitted as an inpatient for the following issues: IMPRESSION: 1. L4-L5 spinal canal stenosis with disc bulging and compression of the left fifth root. He currently has no myelopathic signs and will be admitted for conservative management with pain control, intravenous (IV) Toradol with IV fluids to prevent renal dysfunction, morphine as needed for severe pain. Patient has been started on gabapentin 100 mg twice a day as well as Zanaflex 4 mg three times a day. Orthopedic surgery, Dr. Amadou Arias has been consulted. Will defer further management to Dr. Ceballos, who is the [facility] family practitioner who will see this patient in the morning. 2. Hypertension. Patient takes losartan and amlodipine with holding parameters for systolic pressure less than 120. In light of use of Toradol, creatinine will be monitored and losartan held for creatinine greater than 1.5. 3. Hypercholesterolemia. Continue on Crestor 40 mg nightly. 4. History of reflux. Continue on Prilosec. 5. History of BPH and status post TURP. Currently has no urine retention. Monitor input and output (I and O). 6. Deep venous thrombosis (DVT) prophylaxis will be with Lovenox. 7. Morbid obesity. Body mass index (BMI) of 39.6. Weight loss as outpatient. 8. History of alcohol abuse. Patient has not had any alcohol in years. 9. History of obstructive sleep apnea. May resume home continuous positive airway pressure (C-PAP) setting. Patient will be signed out to Dr. Ppee Ceballos at 7:22 p.m. MATHER HOSPITALLuis Alfredo
[2018-12-27] MEDS: tiZANidine 4 MG TAB PO SCH (21:20)
[2018-12-27] MEDS: ROSUVASTATIN 10 MG TAB (CRESTOR) PO SCH (21:20)
[2018-12-27] MEDS: ACETAMINOPHEN 500 MG TAB PO SCH (21:20)
[2018-12-27] MEDS: GABAPENTIN 100 MG CAP PO SCH (21:20)
[2018-12-27] MEDS: **NOTE PATIENT COMMENT** MISC XX SCH (21:22)
[2018-12-27] MEDS: amLODIPine 5 MG TAB PO SCH (21:24)
[2018-12-28] MEDS: NS 1,000 ML IV SCH (01:45)
[2018-12-28 06:00] VITALS: BP 117/79
[2018-12-28 07:09] VITALS: O2SAT 97
--- NOTE | 2018-12-28 08:26 | CR ---
DATE OF CONSULTATION: 12/28/2018 This is a 63-year-old with a history of spine surgery by Dr. Davis years ago. He was admitted yesterday because when he got up in the morning, he could not bear weight on it. He does not recall a distinct injury but he says he has been fairly busy lately. The note in the chart indicated that he twisted his back at work at 10:00 a.m. but that was not a history he gave me but he does say that he has been very active at work. He says he gets numbness down his left leg. His right leg has been numb for years. MRI scan showed some degenerative spondylosis L4-5 with some stenosis and a left posterior disc protrusion that has some caudally extruded fragment the impinges on the fifth root. There is some minimal canal narrowing at 3-4 and right femoral encroachment at 5-1. He has had no bowel or bladder incontinence. His neurovascular status has been unchanged. He had normal rectal tone per Dr. Watson in the emergency room and denies any change in bowel or bladder habits. Denies any saddle anesthesia. PAST MEDICAL HISTORY: Notable for: Hyperlipidemia. Right inguinal mass. Benign prostatic hypertrophy (BPH). Microalbuminuria. Alcohol abuse. Hypertension. Bilateral knee osteoarthritis. Obstructive sleep apnea (LIAM). ALLERGIES: LISINOPRIL. SURGERY: He had back surgery back in 2005. Left ACL many years ago and transurethral resection of prostate (TURP). FAMILY HISTORY: Notable for: Coronary artery disease. Cerebrovascular accident. The patient previously smoked cigarettes. He previously was a drinker but has not had alcohol in years. 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 PHYSICAL EXAMINATION: He is alert, oriented, somewhat obese. HEENT: Extraocular muscles intact. Pharynx benign. He has nonlabored breathing. A benign obese abdomen. Extremities demonstrate that he is able to move his feet and ankles well. He reports new numbness in all of his left toes. He has irritability with range of motion of his left lower extremity and positive straight leg raise. He has symmetric strength in ankle dorsiflexion, plantar flexion. Reflexes have been symmetric and minimal. No obvious muscle atrophy. MRI is as above. IMPRESSION: Left lower extremity sciatica. Patient is unable to get out of bed and bear weight due to the pain. RECOMMENDATIONS: 1. Continue pain management. 2. Physical therapy which has been ordered for assistance and perhaps some Jenny type exercises or at least activities to increase his mobility. 3. He has MATT sequentials on, apparently did have SCDs but they took some off, he needs those back on. 4. I have put in a consult for the pain service to see him probably on Sunday and Marialuisaalpesh Yancey will notifiy the [facility]. 5. If he does not respond to epidurals, then he may be a surgical candidate. Please keep us posted if he does not respond to the conservative treatments. ANA ROSA
[2018-12-28] MEDS: MORPHINE 4 MG/ML 1ML VIAL/SYRINGE (J2270) IV PRN ×3 (08:43→17:03)
[2018-12-28] MEDS: ACETAMINOPHEN 500 MG TAB PO SCH ×2 (08:43→21:11)
[2018-12-28] MEDS: LOSARTAN 25 MG TAB PO SCH (08:44)
[2018-12-28] MEDS: ASPIRIN 81 MG ENTERIC TAB PO SCH (08:44)
[2018-12-28] MEDS: OMEPRAZOLE 20 MG CAP PO SCH (08:44)
[2018-12-28] MEDS: tiZANidine 4 MG TAB PO SCH ×3 (08:44→21:11)
[2018-12-28] MEDS: GABAPENTIN 100 MG CAP PO SCH (08:45)
[2018-12-28] MEDS: ENOXAPARIN 40 MG/0.4 ML SYRINGE (J1650) SC SCH (08:45)
[2018-12-28] MEDS: LIDOCAINE 5% (LIDODERM) PATCH TD SCH (08:45)
[2018-12-28 14:00] VITALS: BP 112/62
--- NOTE | 2018-12-28 14:42 | IPN ---
DATE: 12/28/2018 SUBJECTIVE: Patient has still some left lower back discomfort and left leg discomfort with numbness in his toes, left side. He has had problems similar to this in the past and required surgery remotely, but he does remember what levels were operated. He has chronic lung disease and uses CPAP for sleep apnea. His machine is at home but a family member is going to be bringing it in for him. OBJECTIVE: Blood pressure looks to be well controlled at 121/78, pulse 70. No fever, 97.3 temperature, O2 sat 97 and 99% on 2 liters nasal cannula. Imaging study does show evidence of a L5-S1 disc that is pushing on the nerve root. Blood cultures were done for reasons are not entirely clear at this point and these are pending. White count 6800 and kidney function is normal with a creatinine 0.92, BUN 22. CRP was less than 0.30, perhaps there was some concern about a disc infection because of the sudden onset of the back pain and radicular symptoms. ASSESSMENT: Lumbar disk disease with L5 radiculopathy. Obstructive sleep apnea. Hypertension. History of alcohol abuse. PLAN: The patient will be receiving physical therapy. A pain clinic consult is in the works. He is currently on gabapentin, would recommend titrating the dose upward to 300 mg t.i.d. Cautioned regarding long-term use of narcotic analgesics. Alcohol abuse history increases the risk of requiring long-term maintenance therapy. Indeed, I note that hydrocodone acetaminophen 5 mg/325 once a day is part of his chronic pain regimen.
[2018-12-28] MEDS: GABAPENTIN 300 MG CAP PO SCH ×2 (15:37→21:10)
[2018-12-28] MEDS: amLODIPine 5 MG TAB PO SCH (20:35)
[2018-12-28] MEDS: ROSUVASTATIN 10 MG TAB (CRESTOR) PO SCH (21:10)
[2018-12-28] MEDS: **NOTE PATIENT COMMENT** MISC XX SCH (21:11)
[2018-12-28 22:00] VITALS: BP 102/68
[2018-12-29] MEDS: **NOTE PATIENT COMMENT** MISC XX SCH
[2018-12-29] MEDS: MORPHINE 4 MG/ML 1ML VIAL/SYRINGE (J2270) IV PRN ×4 (03:56→20:29)
[2018-12-29 06:00] VITALS: BP 128/83
[2018-12-29 06:18] VITALS: O2SAT 97
[2018-12-29] MEDS: tiZANidine 4 MG TAB PO SCH ×3 (08:39→20:27)
[2018-12-29] MEDS: ASPIRIN 81 MG ENTERIC TAB PO SCH (08:39)
[2018-12-29] MEDS: ACETAMINOPHEN 500 MG TAB PO SCH ×2 (08:39→20:28)
[2018-12-29] MEDS: LIDOCAINE 5% (LIDODERM) PATCH TD SCH (08:40)
[2018-12-29] MEDS: OMEPRAZOLE 20 MG CAP PO SCH (08:40)
[2018-12-29] MEDS: GABAPENTIN 300 MG CAP PO SCH ×3 (08:40→20:27)
[2018-12-29] MEDS: LOSARTAN 25 MG TAB PO SCH (08:41)
[2018-12-29] MEDS: ENOXAPARIN 40 MG/0.4 ML SYRINGE (J1650) SC SCH (08:41)
--- NOTE | 2018-12-29 15:15 | IPN ---
DATE: 12/29/2018 SUBJECTIVE: The patient reports that his left leg discomfort is somewhat better. He has increased sensation in the toes of his left foot which had been previously quite numb. He tolerated sitting up in a chair yesterday and he is able to walk a little bit today. CURRENT MEDICATIONS: - anticlotting agent Lovenox - aspirin 81 mg - amlodipine 5 mg for blood pressure control - acetaminophen 1000 mg twice a day - ketorolac intravenous (IV) as needed for pain - gabapentin was titrated to 300 mg three times a day yesterday - He remains on ordered morphine sulfate - losartan 25 mg daily - omeprazole 40 mg daily - ondansetron for nausea 4 mg - rosuvastatin 40 - tizanidine 4 mg three times a day Narcotic pain medications: Last dose of morphine was at 0356. Last dose of ketorolac was 0537 today on both agents. OBJECTIVE: VITAL SIGNS: Blood pressure 128/83 this morning, pulse 62, respiratory rate 18, oxygen saturation 97% on room air. LUNGS: Clear to auscultation. HEART: Regular rhythm without murmurs. ABDOMEN: Obese, nontender. No mass regarding. Still dramatically positive left straight leg raising. Reflexes could not be elicited at the knees or ankles and sensation over the tops of the toes, which were relatively absent or nearly so yesterday, he now has light touch sensation present. ASSESSMENT: L5 disk herniation with radicular pain. Symptoms have improved, but he is still requiring narcotic pain medications and periodic intramuscular (IM) ketorolac. Pain clinical interviewer will see him tomorrow to make recommendations for ongoing care, so it is good that he is showing significant reduction in overall pain and he is more comfortable and is able to ambulate at this time. Will continue gabapentin at 300 mg three times a day for now. Further titration could be an option, but will hold off on adjustment until pain clinic evaluation can be completed.
[2018-12-29 16:00] VITALS: BP 144/83
[2018-12-29] MEDS: ROSUVASTATIN 10 MG TAB (CRESTOR) PO SCH (20:27)
[2018-12-29] MEDS: amLODIPine 5 MG TAB PO SCH (20:28)
[2018-12-29 22:00] VITALS: BP 120/71
[2018-12-30] MEDS: MORPHINE 4 MG/ML 1ML VIAL/SYRINGE (J2270) IV PRN (05:03)
[2018-12-30 06:00] VITALS: BP 125/84
--- NOTE | 2018-12-30 08:21 | IPNPDOC ---
Subjective Date Seen The patient was seen on 12/30/18. Subjective Chief Complaint/HPI spinal stenosis. Events since last encounter Patient notes improvement in pain and ability to get OOB. States pain remains moderate but has better tolerability. PT eval pending for today. OOB with walker. Constitutional: Denies: Chills, Fever, Night Sweats Pulmonary: Denies: Dyspnea, Cough Gastrointestinal: Denies: Nausea, Vomiting, Abdominal Pain, Diarrhea, Constipation Genitourinary: Denies: Dysuria, Frequency, Incontinence, Retention Objective Physical Examination General Exam: Positive: Alert, No Acute Distress Chest Exam: Positive: Clear to auscultation, Normal air movement Heart Exam: Positive: Rate Normal, Regular Rhythm, Normal S1, Normal S2; Negative: Murmurs, Rubs Abdomen Exam: Positive: Normal bowel sounds, Soft; Negative: Tenderness, Hepatospenomegaly Psych Exam: Positive: Mental status NL, Mood NL, Oriented x 3 Assessment /Plan Problems (1) Back pain at L4-L5 level Status: Acute Problem Text: Improved with gabapentin. Continue current dosing. Call placed and message left requesting pain management consult. PT eval today. DC home when cleared by PT and pain is adequately controlled. Patient has with Parkinson's disease at home and is main caregiver. He has children that are supportive to assist currently. (2) Spinal stenosis of lumbar region Status: Chronic Plan/VTE VTE Prophylaxis Ordered?: Yes VS, I&O, 24H, Fishbone Vital Signs/I&O Vital Signs Date Time Temp Pulse Resp B/P (MAP) Pulse Ox O2 Delivery O2 Flow Rate FiO2 12/30/18 06:00 97.9 75 18 125/84 (98) 98 12/29/18 06:18 Room Air 12/28/18 22:00 2.0 I&O- Last 24 Hours up to 6 AM 12/30/18 06:00 Intake Total 1900 ml Output Total 1150 ml Balance 750 ml Laboratory Data Microbiology Microbiology 12/27/18 Blood Culture - Preliminary, Resulted No Growth after 48 hours. All Specime... 12/27/18 Blood Culture - Preliminary, Resulted No Growth after 48 hours. All Specime... Mamie Montanez PUBLIC POLICY COORDINATOR Dec 30, 2018 08:21
[2018-12-30 09:26] VITALS: BP 125/84
[2018-12-30] MEDS: ASPIRIN 81 MG ENTERIC TAB PO SCH (09:26)
[2018-12-30] MEDS: OMEPRAZOLE 20 MG CAP PO SCH (09:26)
[2018-12-30] MEDS: GABAPENTIN 300 MG CAP PO SCH (09:26)
[2018-12-30] MEDS: ACETAMINOPHEN 500 MG TAB PO SCH (09:26)
[2018-12-30] MEDS: tiZANidine 4 MG TAB PO SCH (09:26)
[2018-12-30] MEDS: LOSARTAN 25 MG TAB PO SCH (09:26)
[2018-12-30] MEDS: ENOXAPARIN 40 MG/0.4 ML SYRINGE (J1650) SC SCH (09:27)
[2018-12-30] MEDS: LIDOCAINE 5% (LIDODERM) PATCH TD SCH (09:27)
[2018-12-30] MEDS ORDERED: TIZA4TAB4 PO (10:41)
[2018-12-30] MEDS ORDERED: GABA-843 PO (10:41)
[2018-12-30] MEDS ORDERED: COZA1TAB PO (10:41)
--- NOTE | 2018-12-30 13:53 | DSES ---
DATE OF ADMISSION: 12/27/2018 DATE OF DISCHARGE: 12/30/2018 PCP: PADMINI Bone ATTENDING PHYSICIAN: Dr. Alexa Zuluaga HISTORY OF PRESENT ILLNESS: This is a very pleasant 53-year-old gentleman with a past medical history significant for hypertension, benign prostatic hyperplasia (BPH), right inguinal mass, hyperlipidemia, lipoma, reflux, microalbuminuria, alcohol abuse, essential hypertension, bilateral knee osteoarthritis, obstructive sleep apnea who presented to the emergency department (ED) with complaints of a 2 day history of back pain. Work-up in the ED proved positive for bulging disc and spinal stenosis with degenerative spondylosis and disc protrusion at L3-L4. He did have encroachment around L5-S1 and compression of the left 5th nerve root. HOSPITAL COURSE: Patient received physical therapy as well as addition of gabapentin 300 mg by mouth three times a day for his pain along with ketorolac IV as needed as tizanidine muscle relaxer. Patient is status post orthopedic consult with Dr. Amadou Arias. Dr. Arias recommended physical therapy, pain management. If he does not improve per Dr. Arias's note, then recommends surgical consult at that time. Today patient has noted significant improvement. He has been cleared by physical therapy for safe discharge home with use of a walker in the home. Patient states his pain is well controlled and he is anxious to return home. ASSESSMENT: 1. Lumbar spine stenosis with encroachment of the left nerve root in the L5-S1. 2. Hypertension. 3. Obstructive sleep apnea (LIAM). 4. Benign prostatic hyperplasia (BPH). PLAN: Patient will return home. Diet is a 2 gram sodium diet. Activity is as tolerated with assistance of walker. He will participate with physical therapy as well as pain management. Consult should be placed. A notification has been placed to patient's PCP. He will followup with PCP within the next 5-7 days. MEDICATIONS: As follows: - gabapentin 300 mg by mouth three times a day - losartan potassium 25 mg by mouth daily - tizanidine 4 mg by mouth three times a day - amlodipine besylate 25 mg by mouth every evening - aspirin 81 mg daily - hydrocodone with acetaminophen 5/325 one tablet by mouth daily as needed - omeprazole 20 mg daily - rosuvastatin 40 mg by mouth every evening Patient is discharged in stable and satisfactory condition with no further questions at the time of discharge.
== END 2018-12-30 12:58 | disposition home or self-care (01) | DRG 347 ==
LOC: M ED 09:49 → EDBD 09:49 → M ED INP 15:36 → M MSPAV 19:30
PROVIDERS: ADMIT General Practice; ATTEND Family Medicine
DX: M48.061 Spinal stenosis, lumbar region without neurogenic claudication (principal); E66.01 Morbid (severe) obesity due to excess calories; I10 Essential (primary) hypertension; M51.16 Intervertebral disc disorders with radiculopathy, lumbar region; N40.0 Benign prostatic hyperplasia without lower urinary tract symptoms; E78.5 Hyperlipidemia, unspecified; K21.9 Gastro-esophageal reflux disease without esophagitis; F10.10 Alcohol abuse, uncomplicated; R80.9 Proteinuria, unspecified; M17.0 Bilateral primary osteoarthritis of knee; G47.33 Obstructive sleep apnea (adult) (pediatric); Z87.891 Personal history of nicotine dependence; Z68.39 Body mass index [BMI] 39.0-39.9, adult; Z79.899 Other long term (current) drug therapy

== ENCOUNTER → 2019-01-15 | Outpatient (RCR) | payer BC ==
[~2019-01-15] MED LIST changes: +COZA1TAB PO; +GABA-843 PO; +HYDR-3713 PO; +OMEP-218 PO; +TIZA4TAB4 PO
== END ==
LOC: M PT 01-01 09:35
PROVIDERS: ATTEND Physician Assistant
DX: M48.061 Spinal stenosis, lumbar region without neurogenic claudication (principal)

== ENCOUNTER 2019-01-29 07:57 | Outpatient (RCR) | payer OTHER, BC | END 2019-02-15 | LOC: M PT 07:57 | PROVIDERS: ATTEND Physician Assistant | DX: Z51.89 Encounter for other specified aftercare (principal); M48.061 Spinal stenosis, lumbar region without neurogenic claudication ==

== ENCOUNTER → 2019-03-10 | Outpatient (CLI) | payer OTHER ==
[~2019-03-10] MED LIST changes: -OMEP40CA2 PO; +OMEP40CA97 PO
--- NOTE | 2019-04-07 11:19 | ECWPNPC ---
PATIENT NAME: NITA BATES : 1955 GENDER: MALE VISIT DATE: 03/10/2019 DISCHARGE DATE: 03/10/19 1715 VISIT LOCKED DATE TIME: PHYSICIAN: DELMER MACARIO MD RESOURCE: DELMER MACARIO MD REASON FOR APPOINTMENT 1. W/C, LOW BACK/STENOSIS HISTORY OF PRESENT ILLNESS HISTORY OF PRESENT ILLNESS: PAIN THE PATIENT DESCRIBES THE PAIN... 64 YEAR OLD MALE PATIENT WITH A HISTORY OF CHRONIC LOW BACK AND LEG PAIN. THE PATIENT DESCRIBES THE PAIN ACHING, DAILY, AND CONTINUOUS WITH A PAIN SCORE OF 6-10/10 DEPENDING ON PHYSICAL ACTIVITY. 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 THE PATIENT STATES HIS PAIN BEGINS HIS LOW BACK AND RADIATES DOWN MAINLY HIS LEFT LEG WITH SOME NUMBNESS IN HIS LEFT FOOT. THE PATIENT SAYS HIS PAIN IS AFFECTING HIS ABILITY TO PERFORM HIS DAILY ACTIVITIES SUCH CLEANING, GROCERY SHOPPING, MOVING AROUND, AND TAKING CARE OF HIS DISABLED . THE PATIENT SAYS HE IS HAVING TROUBLE RESTING AND SLEEPING DUE TO THE LOW BACK AND LEG PAIN THAT THROBS. THE PATIENT SAYS HE HAD A RECENT MRI DONE AND WAS TOLD THAT THERE WAS AN ISSUE WITH A VERTEBRAE THAT IS PINCHING HIS NERVE AND CAUSING HIS PAIN. PATIENT DENIES UNEXPLAINABLE WEIGHT LOSS, FEVER, CHILLS, NEW CHANGES ON HIS URINARY OR BOWEL CONTROL. FALL RISK SCREENING: SCREENING :NO FALLS REPORTED IN THE LAST YEAR CURRENT MEDICATIONS TAKING ASPIRIN 81 MG TABLET 1 TABLET ORALLY ONCE A DAY TAKING ROSUVASTATIN CALCIUM 40 MG TABLET 1 TABLET ORALLY ONCE A DAY TAKING OMEPRAZOLE 20 MG CAPSULE DELAYED RELEASE 1 CAPSULE ORALLY ONCE A DAY TAKING LOSARTAN POTASSIUM 25 MG TABLET 1 TABLET ORALLY ONCE A DAY TAKING AMLODIPINE BESYLATE 5 MG TABLET 1 TABLET ORALLY ONCE A DAY NOT-TAKING GABAPENTIN 300 MG CAPSULE 1 CAPSULE ORALLY THREE TIMES DAILY NOT-TAKING TIZANIDINE HCL 4 MG TABLET 1 TABLET NEEDED ORALLY THREE TIMES A DAY NOT-TAKING HYDROCODONE-ACETAMINOPHEN 5-325 MG TABLET (SCHEDULE II DRUG) 1 TABLET ORALLY THREE TIMES A DAY NEEDED, MDD=3 MEDICATION LIST REVIEWED AND RECONCILED WITH THE PATIENT PAST MEDICAL HISTORY ESSENTIAL (PRIMARY) HYPERTENSION HYPERLIPIDEMIA RIGHT INGUINAL MASS - CT AND U/S WERE ESSENTIALLY NEGATIVE, POSSIBLE LIPOMA OR NON-PATHOLOGIC ADENOPATHY - STABLE GERD LIAM ON BIPAP BPH MICROALBUMINEMIA 10/2014 NORMALIZED 02/2015 ETOH ABUSE BILATERAL KNEE PAIN-RECIEVED INJECTIONS LBP ALLERGIES LISINOPRIL: COUGH - SIDE EFFECTS SURGICAL HISTORY BACK SURGERY 2006 WRIST SURGERY, LEFT KNEE SURGERY,LEFT ACL IN HIS 30S TURP 2016 CYSTOSCOPY 10/2018 DVIU 11/06/2018 FAMILY HISTORY FATHER: 40'S YRS, MVA MOTHER: 64 YRS, HEART DISEASE SIBLINGS: 1 BROTHER HAD LA AND CVA - AT 59. SISTERS (2) ALIVE AND WELL. SON(S): 2 SONS, NO KNOWN MEDICAL PROBLEMS 1 BROTHER(S) , 2 SISTER(S) . 2 SON(S) - HEALTHY. NO H/O DM, CAD, STROKE OR CANCER, NO KNOWN FAMILY HISTORY OF ANY UROLOGICALLY RELATED DISEASES\\/CANCERS. SOCIAL HISTORY GENERAL: TOBACCO USE ARE YOU A:FORMER SMOKER HOW LONG HAS IT BEEN SINCE YOU LAST SMOKED?5-10 YEARS DIET: REGULAR. LANGUAGE ZIMBABWEAN. DOMESTIC VIOLENCE NONE. BMI CARE GOAL FOLLOW-UP ABOVE NORMAL BMI FOLLOW-UPDIETARY NEEDS EDUCATION RECREATIONAL DRUG USE DENIES. EXERCISE: NO REGULAR EXERCISE. 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 NEEDED?NO LUNG CANCER SCREENING SMOKING STATUS:NON SMOKER PAIN CLINIC PFS, CLERGY, PUBLIC HEALTH REFERRALS HAS THE PATIENT BEEN EDUCATED REGARDING HIS/HER PLAN OF CARE?YES HAS THE PATIENT BEEN EDUCATED REGARDING PAIN, THE RISK FOR PAIN, THE IMPORTANCE OF EFFECTIVE PAIN MANAGEMENT, AND THE PAIN ASSESSMENT PROCESS?YES LATEX QUESTIONNAIRE LATEX ALLERGY : HAVE YOU EVER DEVELOPED ANY TYPE OF REACTION AFTER HANDLING LATEX PRODUCTS SUCH RUBBER GLOVES, CONDOMS, DIAPHRAGMS, BALLOONS, SOCKS, OR UNDERWEAR?NO LATEX ALLERGY : HAVE YOU EVER DEVELOPED ANY TYPE OF REACTION DURING OR AFTER DENTAL APPOINTMENT, VAGINAL/RECTAL EXAMINATION, SURGICAL PROCEDURE, OR ANY OTHER EXPOSURE?NO DATE ASKED : 11/01/2018 LATEX RISK : HAVE YOU EVER HAD ANY DIFFICULTY BREATHING OR HIVES AFTER EATING OR HANDLING ANY FRUITS, OR VEGETABLES; SUCH KIWI, BANANAS, STONE FRUITS, OR CHESTNUTSNO LATEX RISK : DO YOU HAVE A PREVIOUS PERSONAL HISTORY OF MORE THAN NINE SURGERIES, SPINA BIFIDA, OR REPEATED CATHERIZATIONS? NO LATEX RISK : ARE YOU FREQUENTLY EXPOSED TO LATEX PRODUCTS IN YOUR OCCUPATION?NO CAFFEINE CAFFEINE USE?YES 1 CUP COFFEE DAILY (DECAF) AND 2 SODAS DAILY ADVANCE DIRECTIVE ADVANCE DIRECTIVE DISCUSSED WITH PATIENT:YES DECLINED RESTORATIONISM NO YARSANI BELIEFS THAT WOULD IMPACT HEALTH CARE. MARITAL STATUS: . ALCOHOL SCREENING POINTS: 5, INTERPRETATION: POSITIVE. 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 SEXUAL HX HAD SEX IN THE LAST 12 MONTHS (VAGINAL, ORAL, OR ANAL)?: NO, HAVE YOU EVER HAD AN STD?: NO. HOSPITALIZATION/MAJOR DIAGNOSTIC PROCEDURE SURGERIES REVIEW OF SYSTEMS REVIEWED BY: PROVIDER: DELMER MCAARIO MD . CONSTITUTIONAL: ANY CHANGE IN YOUR MEDICAL CONDITION? YES, LBP . CHILLS NO . FEVER NO . INFECTION: DO YOU HAVE NEW INFECTIONS? NO . DO YOU HAVE HISTORY OF MRSA? NO . MUSCULOSKELETAL: ANY NEW PATTERNS OF PAIN OR NUMBNESS? NO . GASTROENTEROLOGY: ANY NEW CHANGE IN BOWEL CONTROL? NO . GENITOURINARY: ANY NEW CHANGE IN BLADDER CONTROL? NO . IS THERE A CHANCE YOU COULD BE ? NO . HEMATOLOGY/LYMPH: DO YOU TAKE ANY BLOOD THINNERS? (FOR EXAMPLE- COUMADIN, PLAVIX, AGGRENOX, PLATEL, PRADAXA, OR XARELTO) NO . WHEN WAS YOUR LAST DOSE? DATE: TIME: . NEUROLOGY: HAVE YOU FALLEN IN THE PAST 12 MONTHS? NO . ANY NEW EXTREMITY NUMBNESS OR WEAKNESS? NO . CARDIOLOGY: DO YOU HAVE A PACEMAKER OR DEFIBRILLATOR? NO . RESPIRATORY: HAVE YOU BEEN SICK IN THE PAST WEEK? NO . FEVER NO . FLU LIKE SYMPTOMS? NO . COUGH NO, WEARS CPAP @ . INTEGUMENTARY: DO YOU HAVE ANY RASHES OR OPEN SORES? NO . ALLERGIC/IMMUNO: ARE YOU ALLERGIC TO IV DYE? NO . ANY NEW ALLERGIES? NO . PSYCHIATRIC: DO YOU HAVE THOUGHTS OF HURTING YOURSELF OR SOMEONE ELSE? NO . ARE YOU ABUSED, NEGLECTED, OR IN AN UNSAFE ENVIRONMENT? NO . ENDOCRINOLOGY: ARE YOU DIABETIC? NO . OTHER: DO YOU NEED ANY PRESCRIPTIONS? NO . IF YES, PLEASE LIST: ____ . ANY NEW PROBLEMS WITH YOUR MEDICATIONS? NO . WHEN DID YOU LAST EAT? ____ . WHEN DID YOU LAST DRINK? ____ . WHAT DID YOU LAST DRINK? ____ . NAME OF PERSON DRIVING YOU HOME? ____ . DO YOU HAVE ANY OTHER QUESTIONS OR CONCERNS NO . VITAL SIGNS WT 238.8 LBS, HT 5'9", BMI 35.26 INDEX, BP 156/81 MM HG, HR 95 /MIN, RR 18 /MIN, TEMP 97%, OXYGEN SAT % 97%, NA INITIALS SC 15:29, REVIEWED BY: EM. EXAMINATION GENERAL EXAMINATION: PATIENT IS ALERT O X 3 AND COOPERATIVE. LUNGS CLEAR, TO AUSCULTATION. HEART: NO MURMURS OR GALLOPS; FACIAL CRANIAL NERVES ARE GROSSLY NORMAL. GOOD SYMMETRY OF FACIAL MUSCLE MOVEMENT. NORMAL VISUAL SIMON. ANTALGIC GAIT. PATIENT IS USING A CANE IN HIS RIGHT HAND AND IS LIMPING FROM THE LEFT LEG. TENDERNESS IN THE LOW BACK OVER THE PARASPINAL MUSCLE GROUP. ONE-INCH SCAR IN THE LOW BACK FROM A PRIOR SURGERY. LEFT LEG IS WEAKER AT EXTENSION AND FLEXION. STRAIGHT LEG RAISE OF THE LEFT LEG IS POSITIVE AT 40 DEGREES. MRI OF THE LUMBAR SPINE DONE ON 12/27/2018 SHOWS CANAL STENOSIS AT L4-L5, RIGHT FORAMINAL ENCROACHMENT AT L5-S1, CAUDAL DISC PROTRUSION EXTENDS TO LATERAL RECESS AT L5 COMPRESSING THE LEFT FIFTH ROOT, BULGING DISC, AND FACET ARTHROPATHY CHANGES AT MULTIPLE LEVELS. ASSESSMENTS LUMBAR POST-LAMINECTOMY SYNDROME - M96.1 (PRIMARY) INTERVERTEBRAL DISC DISORDERS WITH RADICULOPATHY, LUMBAR REGION - M51.16 12/27/2018 LUMBAR SPINE MRI SHOWING REACTIVE MARROW CHANGES ON EITHER SIDE OF L4-L5 DISC. TREATMENT LUMBAR POST-LAMINECTOMY SYNDROME CLINICAL NOTES: WE DISCUSSED SEVERAL ISSUES WITH MR. BATES'S PAIN MANAGEMENT CASE. DUE TO THE LUMBAR RADICULOPATHY, I WOULD LIKE TO MOVE FORWARD WITH A LUMBAR EPIDURAL STEROID INJECTION AT THIS TIME. WE DISCUSSED THE BENEFITS, RISKS, AND ALTERNATIVES OF THE INJECTION AND THE PATIENT WOULD LIKE TO PROCEED. BEFORE MOVING FORWARD WITH THE PROCEDURE, I WOULD LIKE TO SPEAK WITH THE RADIOLOGIST TO REVIEW THE 12/27/2018 LUMBAR SPINE MRI. THE PATIENT HAS A HISTORY OF BACK SURGERY AND I WOULD LIKE TO KNOW IF A MRI WITH CONTRAST WOULD BE NEEDED. THE PATIENT WILL CONTINUE HIS MEDICATION MANAGEMENT WITH PORTILLO ROMERO AND WILL RECEIVE INJECTION THERAPY AT OUR CLINIC. THE PATIENT WILL FOLLOW UP IN 2 WEEKS TO DISCUSS THE MRI AND PROCEED WITH OUR NEXT PLAN. INSTRUCTIONS WERE GIVEN, QUESTIONS WERE ANSWERED, PATIENT REPORTS UNDERSTANDING AND AGREES WITH THE PLAN. I, SAIRA MARIA, DOCUMENTED THE ABOVE INFORMATION ACTING A SCRIBE FOR DR. MACARIO. I HAVE REVIEWED THE ABOVE DOCUMENT, WRITTEN BY SAIRA LAM AND I VERIFY THAT IT IS ACCURATE. DEAR LETICIA DAVIS: THANK YOU FOR YOUR KIND REFERRAL OF NITA BATES. IF YOU WANT TO DISCUSS HIS CASE WITH ME PLEASE CALL ME AT THE PAIN CENTER AT [phone]. SINCERELY, DELMER MACARIO MD PAIN MEDICINE . PROCEDURES PN WORKMANS' COMP OPINION IN YOUR OPINION, WAS THE INCIDENT THAT THE PATIENT DESCRIBED THE COMPETENT MEDICAL CAUSE OF THIS INJURY/ILLNESS? YES ARE THE PATIENT'S COMPLAINTS CONSISTENT WITH HIS/HER HISTORY OF THE INJURY/ILLNESS? YES IS THE PATIENT'S HISTORY OF THE INJURY/ILLNESS CONSISTENT WITH YOUR OBJECTIVE FINDING? YES WHAT IS THE PERCENTAGE OF TEMPORARY IMPAIRMENT? MILD = 25% IS THE PATIENT WORKING? NO DOCTOR ON SITE: DELMER BENAVIDES MD PROCEDURE CODES G8427 CURRENT MEDS W/DOSAGES DOCUMENTED G8730 PAIN ASSESS POS TOOL F/U PLAN DOC FA211 ESTABILISHED PATIENT [facility] FACILITY CHARGE DISPOSITION & COMMUNICATION FOLLOW UP 2 WEEKS (REASON: LESI, DISCUSS MRI FIRST) ELECTRONICALLY SIGNED BY DELMER MACARIO MD, MD ON 03/25/2019 AT 05:13 PM EDT DISCLAIMER : THIS IS A VISIT SUMMARY EXTRACTED FROM THE [employer] CHART. IT IS NOT A COPY OF THE [employer] PROGRESS NOTE. ANA ROSA
== END ==
LOC: M PAIN 15:30
PROVIDERS: ATTEND Anesthesiology
DX: M96.1 Postlaminectomy syndrome, not elsewhere classified (principal); M51.16 Intervertebral disc disorders with radiculopathy, lumbar region; I10 Essential (primary) hypertension; E78.5 Hyperlipidemia, unspecified; K21.9 Gastro-esophageal reflux disease without esophagitis; G47.33 Obstructive sleep apnea (adult) (pediatric); Z87.891 Personal history of nicotine dependence; Z88.8 Allergy status to other drugs, medicaments and biological substances; Z79.82 Long term (current) use of aspirin; Z79.899 Other long term (current) drug therapy

== ENCOUNTER → 2019-03-21 | Outpatient (CLI) | payer OTHER ==
--- NOTE | 2019-04-07 11:32 | ECWPNPC ---
PATIENT NAME: NITA BATES : 1955 GENDER: MALE VISIT DATE: 03/21/2019 DISCHARGE DATE: 03/21/19 1552 VISIT LOCKED DATE TIME: PHYSICIAN: DELMER MACARIO MD RESOURCE: DELMER MACARIO MD REASON FOR APPOINTMENT 1. PER DR Salomon 03/10/29 HISTORY OF PRESENT ILLNESS HISTORY OF PRESENT ILLNESS: PAIN THE PATIENT DESCRIBES THE PAIN... 64 YEAR OLD MALE PATIENT WITH A HISTORY OF CHRONIC LOW BACK AND LEG PAIN. THE PATIENT DESCRIBES THE PAIN ACHING AND CONTINUOUS WITH A PAIN SCORE OF 5-8/10 DEPENDING ON PHYSICAL ACTIVITY. THE PATIENT STATES HIS PAIN BEGINS IN HIS LOW BACK AND RADIATES DOWN HIS LEFT LEG. 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 THE PATIENT SAYS HIS PAIN IS AFFECTING HIS ABILITY TO PERFORM HIS DAILY ACTIVITIES SUCH MOVING AROUND, GROCERY SHOPPING, AND WORKING AROUND HIS HOUSE. PATIENT DENIES UNEXPLAINABLE WEIGHT LOSS, FEVER, CHILLS, NEW CHANGES ON HIS URINARY OR BOWEL CONTROL. FALL RISK SCREENING: SCREENING :NO FALLS REPORTED IN THE LAST YEAR CURRENT MEDICATIONS TAKING ASPIRIN 81 MG TABLET 1 TABLET ORALLY ONCE A DAY TAKING ROSUVASTATIN CALCIUM 40 MG TABLET 1 TABLET ORALLY ONCE A DAY TAKING OMEPRAZOLE 20 MG CAPSULE DELAYED RELEASE 1 CAPSULE ORALLY ONCE A DAY TAKING LOSARTAN POTASSIUM 25 MG TABLET 1 TABLET ORALLY ONCE A DAY TAKING AMLODIPINE BESYLATE 5 MG TABLET 1 TABLET ORALLY ONCE A DAY NOT-TAKING GABAPENTIN 300 MG CAPSULE 1 CAPSULE ORALLY THREE TIMES DAILY NOT-TAKING TIZANIDINE HCL 4 MG TABLET 1 TABLET NEEDED ORALLY THREE TIMES A DAY NOT-TAKING HYDROCODONE-ACETAMINOPHEN 5-325 MG TABLET (SCHEDULE II DRUG) 1 TABLET ORALLY THREE TIMES A DAY NEEDED, MDD=3 MEDICATION LIST REVIEWED AND RECONCILED WITH THE PATIENT PAST MEDICAL HISTORY ESSENTIAL (PRIMARY) HYPERTENSION HYPERLIPIDEMIA RIGHT INGUINAL MASS - CT AND U/S WERE ESSENTIALLY NEGATIVE, POSSIBLE LIPOMA OR NON-PATHOLOGIC ADENOPATHY - STABLE GERD LIAM ON BIPAP BPH MICROALBUMINEMIA 10/2014 NORMALIZED 02/2015 ETOH ABUSE BILATERAL KNEE PAIN-RECIEVED INJECTIONS LBP ALLERGIES LISINOPRIL: COUGH - SIDE EFFECTS SURGICAL HISTORY BACK SURGERY 2006 WRIST SURGERY, LEFT KNEE SURGERY,LEFT ACL IN HIS 30S TURP 2016 CYSTOSCOPY 10/2018 DVIU 11/06/2018 FAMILY HISTORY FATHER: 40'S YRS, MVA MOTHER: 64 YRS, HEART DISEASE SIBLINGS: 1 BROTHER HAD MD AND CVA - AT 59. SISTERS (2) ALIVE AND WELL. SON(S): 2 SONS, NO KNOWN MEDICAL PROBLEMS 1 BROTHER(S) , 2 SISTER(S) . 2 SON(S) - HEALTHY. NO H/O DM, CAD, STROKE OR CANCER, NO KNOWN FAMILY HISTORY OF ANY UROLOGICALLY RELATED DISEASES\\/CANCERS. SOCIAL HISTORY GENERAL: TOBACCO USE ARE YOU A:FORMER SMOKER HOW LONG HAS IT BEEN SINCE YOU LAST SMOKED?5-10 YEARS DIET: REGULAR. LANGUAGE JAPANESE. DOMESTIC VIOLENCE NONE. BMI CARE GOAL FOLLOW-UP ABOVE NORMAL BMI FOLLOW-UPDIETARY NEEDS EDUCATION RECREATIONAL DRUG USE DENIES. EXERCISE: NO REGULAR EXERCISE. LEARNING BARRIERS / SPECIAL NEEDS CHANGE FROM LAST VISIT?NO BARRIERS TO LEARNING?NO HEARING IMPAIRED?NO VISION IMPAIRED?YES COGNITIVELY IMPAIRED?NO :CORRECTIVE LENSES READINESS TO LEARN?YES LEARNING PREFERENCES?NO LEARNING CAPABILITIES PRESENT?YES EMOTIONAL BARRIERS?NO SPECIAL DEVICES?NO WOOD TURNING LATHE OPERATOR NEEDED?NO LUNG CANCER SCREENING SMOKING STATUS:NON SMOKER PAIN CLINIC PFS, CLERGY, PUBLIC HEALTH REFERRALS HAS THE PATIENT BEEN EDUCATED REGARDING HIS/HER PLAN OF CARE?YES HAS THE PATIENT BEEN EDUCATED REGARDING PAIN, THE RISK FOR PAIN, THE IMPORTANCE OF EFFECTIVE PAIN MANAGEMENT, AND THE PAIN ASSESSMENT PROCESS?YES LATEX QUESTIONNAIRE LATEX ALLERGY : HAVE YOU EVER DEVELOPED ANY TYPE OF REACTION AFTER HANDLING LATEX PRODUCTS SUCH RUBBER GLOVES, CONDOMS, DIAPHRAGMS, BALLOONS, SOCKS, OR UNDERWEAR?NO LATEX ALLERGY : HAVE YOU EVER DEVELOPED ANY TYPE OF REACTION DURING OR AFTER DENTAL APPOINTMENT, VAGINAL/RECTAL EXAMINATION, SURGICAL PROCEDURE, OR ANY OTHER EXPOSURE?NO DATE ASKED : 11/01/2018 LATEX RISK : HAVE YOU EVER HAD ANY DIFFICULTY BREATHING OR HIVES AFTER EATING OR HANDLING ANY FRUITS, OR VEGETABLES; SUCH KIWI, BANANAS, STONE FRUITS, OR CHESTNUTSNO LATEX RISK : DO YOU HAVE A PREVIOUS PERSONAL HISTORY OF MORE THAN NINE SURGERIES, SPINA BIFIDA, OR REPEATED CATHERIZATIONS? NO LATEX RISK : ARE YOU FREQUENTLY EXPOSED TO LATEX PRODUCTS IN YOUR OCCUPATION?NO CAFFEINE CAFFEINE USE?YES 1 CUP COFFEE DAILY (DECAF) AND 2 SODAS DAILY ADVANCE DIRECTIVE ADVANCE DIRECTIVE DISCUSSED WITH PATIENT:YES PT DECLINES HCP INFORMATION AND DECLINES ASSISTANCE WITH FORM. JEHOVAH'S WITNESS NO HOAHAOISM BELIEFS THAT WOULD IMPACT HEALTH CARE. MARITAL STATUS: . ALCOHOL SCREENING POINTS: 5, INTERPRETATION: POSITIVE. 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 SEXUAL HX HAD SEX IN THE LAST 12 MONTHS (VAGINAL, ORAL, OR ANAL)?: NO, HAVE YOU EVER HAD AN STD?: NO. REVIEWED WITH PT. 03/21/19 1439 BV. HOSPITALIZATION/MAJOR DIAGNOSTIC PROCEDURE SURGERIES REVIEW OF SYSTEMS REVIEWED BY: PROVIDER: DELMER MACARIO MD . CONSTITUTIONAL: ANY CHANGE IN YOUR MEDICAL CONDITION? NO . CHILLS NO . FEVER NO . INFECTION: DO YOU HAVE NEW INFECTIONS? NO . DO YOU HAVE HISTORY OF MRSA? NO . MUSCULOSKELETAL: ANY NEW PATTERNS OF PAIN OR NUMBNESS? NO . GASTROENTEROLOGY: ANY NEW CHANGE IN BOWEL CONTROL? NO . GENITOURINARY: ANY NEW CHANGE IN BLADDER CONTROL? NO . IS THERE A CHANCE YOU COULD BE ? NO . HEMATOLOGY/LYMPH: DO YOU TAKE ANY BLOOD THINNERS? (FOR EXAMPLE- COUMADIN, PLAVIX, AGGRENOX, PLATEL, PRADAXA, OR XARELTO) NO . WHEN WAS YOUR LAST DOSE? DATE: TIME: . NEUROLOGY: HAVE YOU FALLEN IN THE PAST 12 MONTHS? NO . ANY NEW EXTREMITY NUMBNESS OR WEAKNESS? NO . CARDIOLOGY: DO YOU HAVE A PACEMAKER OR DEFIBRILLATOR? NO . RESPIRATORY: HAVE YOU BEEN SICK IN THE PAST WEEK? NO . FEVER NO . FLU LIKE SYMPTOMS? NO . COUGH NO . INTEGUMENTARY: DO YOU HAVE ANY RASHES OR OPEN SORES? NO . ALLERGIC/IMMUNO: ARE YOU ALLERGIC TO IV DYE? NO . ANY NEW ALLERGIES? NO . PSYCHIATRIC: DO YOU HAVE THOUGHTS OF HURTING YOURSELF OR SOMEONE ELSE? NO . ARE YOU ABUSED, NEGLECTED, OR IN AN UNSAFE ENVIRONMENT? NO . ENDOCRINOLOGY: ARE YOU DIABETIC? NO . OTHER: DO YOU NEED ANY PRESCRIPTIONS? NO . IF YES, PLEASE LIST: ____ . ANY NEW PROBLEMS WITH YOUR MEDICATIONS? NO . WHEN DID YOU LAST EAT? ____ . WHEN DID YOU LAST DRINK? ____ . WHAT DID YOU LAST DRINK? ____ . NAME OF PERSON DRIVING YOU HOME? ____ . DO YOU HAVE ANY OTHER QUESTIONS OR CONCERNS NO . VITAL SIGNS WT 240.2 LBS, HT 5'9", BMI 35.47 INDEX, BP 153/91 MM HG, HR 83 /MIN, RR 18 /MIN, TEMP 97.2 F, OXYGEN SAT % 97%, NA INITIALS SC 14:26, REVIEWED BY: BV. EXAMINATION GENERAL EXAMINATION: PATIENT IS ALERT O X 3 AND COOPERATIVE. LEFT LEG IS WEAKER AT EXTENSION AND FLEXION. STRAIGHT LEG RAISE OF THE LEFT LEG IS POSITIVE FOR RADICULOPATHY AT 35 DEGREES. TENDERNESS IN THE LOW BACK AREA. MRI OF THE LUMBAR SPINE DONE ON 12/27/2018 SHOWS DISC PROTRUSION AND CANAL STENOSIS AT L4-L5. ASSESSMENTS LUMBAR POST-LAMINECTOMY SYNDROME - M96.1 (PRIMARY) TREATMENT LUMBAR POST-LAMINECTOMY SYNDROME CLINICAL NOTES: WE DISCUSSED SEVERAL ISSUES WITH MR. BATES'S PAIN MANAGEMENT CASE. I DISCUSSED WITH THE RADIOLOGIST, DR. MITCHELL CONROY, WHO PERFORMED THE PATIENT'S LUMBAR SPINE MRI ON 12/27/2018, WHICH MENTIONED REACTIVE MARROW CHANGES ON EITHER SIDE OF L4-L5 DISC, AND HE STATES THAT THE CHANGES DO NOT REPRESENT AN INFECTION. THEREFORE, DUE TO THE LUMBAR RADICULOPATHY, I WOULD LIKE TO MOVE FORWARD WITH A LUMBAR EPIDURAL STEROID INJECTION AT THIS TIME. WE DISCUSSED THE BENEFITS, RISKS, AND ALTERNATIVES OF THE INJECTION AND THE PATIENT WOULD LIKE TO PROCEED. I AM LOOKING FOR LONG LASTING PAIN RELIEF FROM THIS INJECTION FOR THE PATIENT. THE PATIENT WILL FOLLOW UP IN SEVERAL WEEKS AFTER THE INJECTION. INSTRUCTIONS WERE GIVEN, QUESTIONS WERE ANSWERED, PATIENT REPORTS UNDERSTANDING AND AGREES WITH THE PLAN. I, SAIRA MARIA, DOCUMENTED THE ABOVE INFORMATION ACTING A SCRIBE FOR DR. MACARIO. I HAVE REVIEWED THE ABOVE DOCUMENT, WRITTEN BY SAIRA LAM AND I VERIFY THAT IT IS ACCURATE. . PREVENTIVE MEDICINE PAIN CLINIC TEACHING: PROCEDURE TEACHING PT GIVEN WRITTEN AND VERBAL EDUCATION ON LUMBAR EPIDURAL. PT ALSO GIVEN WRITTEN AND VERBAL PRE PROCEDURE INSTRUCTIONS. PT VERBALIZES UNDERSTANDING OF ALL EDUCATION AND INSTRUCTIONS. KAYLEE VALLADARES 03/21/2019 3:52:24 PM > . PROCEDURE CODES FA211 ESTABILISHED PATIENT [facility] FACILITY CHARGE G8427 CURRENT MEDS W/DOSAGES DOCUMENTED G8730 PAIN ASSESS POS TOOL F/U PLAN DOC DISPOSITION & COMMUNICATION FOLLOW UP REASON: RACHELLE ELECTRONICALLY SIGNED BY DELMER MACARIO MD, ON 03/27/2019 AT 05:55 PM EDT DISCLAIMER : THIS IS A VISIT SUMMARY EXTRACTED FROM THE [employer] CHART. IT IS NOT A COPY OF THE [employer] PROGRESS NOTE. ANA ROSA
== END ==
LOC: M PAIN 14:30
PROVIDERS: ATTEND Anesthesiology
DX: M96.1 Postlaminectomy syndrome, not elsewhere classified (principal); I10 Essential (primary) hypertension; E78.5 Hyperlipidemia, unspecified; K21.9 Gastro-esophageal reflux disease without esophagitis; G47.33 Obstructive sleep apnea (adult) (pediatric); Z87.891 Personal history of nicotine dependence; Z88.8 Allergy status to other drugs, medicaments and biological substances; Z79.82 Long term (current) use of aspirin; Z79.899 Other long term (current) drug therapy

== ENCOUNTER → 2019-06-30 | Outpatient (CLI) | payer OTHER ==
[~2019-06-30] MED LIST changes: +ISOVUE-M 300 61% 15ML VIAL (Q9967) As Ordered ONE; +LIDOCAINE 1% SDV INJ 30 ML VIAL As Ordered ONE; +diazePAM 5 MG TAB As Ordered ONE; +methylPREDNISolone SUSP 40 MG/ML (DEPO-medrol) VIAL (J1030) As Ordered ONE; +oxyCODONE 5MG TAB As Ordered ONE
--- NOTE | 2019-06-30 14:19 | REP ---
Partial lumbar spine: Single view. History: Injection procedure for pain. 7 seconds of fluoroscopy time is reported. Findings: A single last image hold fluoroscopically obtained spot radiograph of the lumbar spine documents needle position, catheter position, and contrast injection associated with injection procedure. Electronically Signed by Charles Roa MD 06/30/2019 02:10 P
--- NOTE | 2019-07-11 04:08 | ECWPNPC ---
PATIENT NAME: NITA BATES : 1955 GENDER: MALE VISIT DATE: 06/30/2019 DISCHARGE DATE: 06/30/19 1422 VISIT LOCKED DATE TIME: PHYSICIAN: DELMER MACARIO MD RESOURCE: DELMER MACARIO MD REASON FOR APPOINTMENT 1. W/C LESI HISTORY OF PRESENT ILLNESS HISTORY OF PRESENT ILLNESS: PAIN THE PATIENT DESCRIBES THE PAIN... FALL RISK SCREENING: SCREENING :NO FALLS REPORTED IN THE LAST YEAR CURRENT MEDICATIONS TAKING LOSARTAN POTASSIUM 25 MG TABLET 1 TABLET ORALLY ONCE A DAY, NOTES: 06/30/19429 TAKING AMLODIPINE BESYLATE 5 MG TABLET 1 TABLET ORALLY ONCE A DAY, NOTES: 06/30/19429 TAKING ASPIRIN 81 MG TABLET 1 TABLET ORALLY ONCE A DAY, NOTES: 06/29/19 PM TAKING ROSUVASTATIN CALCIUM 40 MG TABLET 1 TABLET ORALLY ONCE A DAY, NOTES: 06/29/19 PM TAKING OMEPRAZOLE 20 MG CAPSULE DELAYED RELEASE 1 CAPSULE ORALLY ONCE A DAY, NOTES: 06/30/19429 MEDICATION LIST REVIEWED AND RECONCILED WITH THE PATIENT PAST MEDICAL HISTORY ESSENTIAL (PRIMARY) HYPERTENSION HYPERLIPIDEMIA RIGHT INGUINAL MASS - CT AND U/S WERE ESSENTIALLY NEGATIVE, POSSIBLE LIPOMA OR NON-PATHOLOGIC ADENOPATHY - STABLE GERD LIAM ON BIPAP BPH MICROALBUMINEMIA 10/2014 NORMALIZED 02/2015 BILATERAL KNEE PAIN-RECIEVED INJECTIONS LBP ETOH ABUSE ALLERGIES LISINOPRIL: COUGH - SIDE EFFECTS SURGICAL HISTORY BACK SURGERY 2006 WRIST SURGERY, LEFT KNEE SURGERY,LEFT ACL IN HIS 30S TURP 2016 CYSTOSCOPY 10/2018 DVIU 11/06/2018 FAMILY HISTORY FATHER: 40'S YRS, MVA MOTHER: 64 YRS, HEART DISEASE SIBLINGS: 1 BROTHER HAD OR AND CVA - AT 59. SISTERS (2) ALIVE AND WELL. SON(S): 2 SONS, NO KNOWN MEDICAL PROBLEMS 1 BROTHER(S) , 2 SISTER(S) . 2 SON(S) - HEALTHY. NO H/O DM, CAD, STROKE OR CANCER, NO KNOWN FAMILY HISTORY OF ANY UROLOGICALLY RELATED DISEASES\/CANCERS. SOCIAL HISTORY GENERAL: TOBACCO USE ARE YOU A:FORMER SMOKER HOW LONG HAS IT BEEN SINCE YOU LAST SMOKED?5-10 YEARS DIET: REGULAR. LANGUAGE GREENLANDIC. DOMESTIC VIOLENCE NONE. BMI CARE GOAL FOLLOW-UP ABOVE NORMAL BMI FOLLOW-UPDIETARY NEEDS EDUCATION RECREATIONAL DRUG USE DENIES. EXERCISE: NO REGULAR EXERCISE. LEARNING BARRIERS / SPECIAL NEEDS CHANGE FROM LAST VISIT?NO BARRIERS TO LEARNING?NO HEARING IMPAIRED?NO VISION IMPAIRED?YES COGNITIVELY IMPAIRED?NO :CORRECTIVE LENSES READINESS TO LEARN?YES LEARNING PREFERENCES?NO LEARNING CAPABILITIES PRESENT?YES EMOTIONAL BARRIERS?NO SPECIAL DEVICES?NO ACID BATH MIXER NEEDED?NO LUNG CANCER SCREENING SMOKING STATUS:NON SMOKER PAIN CLINIC PFS, CLERGY, PUBLIC HEALTH REFERRALS HAS THE PATIENT BEEN EDUCATED REGARDING HIS/HER PLAN OF CARE?YES HAS THE PATIENT BEEN EDUCATED REGARDING PAIN, THE RISK FOR PAIN, THE IMPORTANCE OF EFFECTIVE PAIN MANAGEMENT, AND THE PAIN ASSESSMENT PROCESS?YES LATEX QUESTIONNAIRE LATEX ALLERGY : HAVE YOU EVER DEVELOPED ANY TYPE OF REACTION AFTER HANDLING LATEX PRODUCTS SUCH RUBBER GLOVES, CONDOMS, DIAPHRAGMS, BALLOONS, SOCKS, OR UNDERWEAR?NO LATEX ALLERGY : HAVE YOU EVER DEVELOPED ANY TYPE OF REACTION DURING OR AFTER DENTAL APPOINTMENT, VAGINAL/RECTAL EXAMINATION, SURGICAL PROCEDURE, OR ANY OTHER EXPOSURE?NO DATE ASKED : 11/01/2018 LATEX RISK : HAVE YOU EVER HAD ANY DIFFICULTY BREATHING OR HIVES AFTER EATING OR HANDLING ANY FRUITS, OR VEGETABLES; SUCH KIWI, BANANAS, STONE FRUITS, OR CHESTNUTSNO LATEX RISK : DO YOU HAVE A PREVIOUS PERSONAL HISTORY OF MORE THAN NINE SURGERIES, SPINA BIFIDA, OR REPEATED CATHERIZATIONS? NO LATEX RISK : ARE YOU FREQUENTLY EXPOSED TO LATEX PRODUCTS IN YOUR OCCUPATION?NO CAFFEINE CAFFEINE USE?YES 1 CUP COFFEE DAILY (DECAF) AND 2 SODAS DAILY ADVANCE DIRECTIVE ADVANCE DIRECTIVE DISCUSSED WITH PATIENT:YES PT DECLINES HCP INFORMATION AND DECLINES ASSISTANCE WITH FORM. 06/30/2019 BV SCIENTOLOGIST NO ADVENT BELIEFS THAT WOULD IMPACT HEALTH CARE. MARITAL STATUS: . ALCOHOL SCREENING POINTS: 5, INTERPRETATION: POSITIVE. 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 SEXUAL HX HAD SEX IN THE LAST 12 MONTHS (VAGINAL, ORAL, OR ANAL)?: NO, HAVE YOU EVER HAD AN STD?: NO. REVIEWED WITH PT. 03/21/19 1439 BVPRE ADMISSION COMPLETE 1-10-20 KG. HOSPITALIZATION/MAJOR DIAGNOSTIC PROCEDURE SURGERIES REVIEW OF SYSTEMS REVIEWED BY: PROVIDER: . CONSTITUTIONAL: ANY CHANGE IN YOUR MEDICAL CONDITION? NO . CHILLS NO . FEVER NO . INFECTION: DO YOU HAVE NEW INFECTIONS? NO . DO YOU HAVE HISTORY OF MRSA? NO . MUSCULOSKELETAL: ANY NEW PATTERNS OF PAIN OR NUMBNESS? NO . GASTROENTEROLOGY: ANY NEW CHANGE IN BOWEL CONTROL? NO . GENITOURINARY: ANY NEW CHANGE IN BLADDER CONTROL? YES, PT REPORTS INCREASED URINARY FREQUENCY FOR THE PAST MONTH, DENIES ANY PAIN OR BLOOD IN URINE. PT DENIES FEVER . IS THERE A CHANCE YOU COULD BE ? NO . HEMATOLOGY/LYMPH: DO YOU TAKE ANY BLOOD THINNERS? (FOR EXAMPLE- COUMADIN, PLAVIX, AGGRENOX, PLATEL, PRADAXA, OR XARELTO) NO . WHEN WAS YOUR LAST DOSE? DATE: TIME: . NEUROLOGY: HAVE YOU FALLEN IN THE PAST 12 MONTHS? NO . ANY NEW EXTREMITY NUMBNESS OR WEAKNESS? NO . CARDIOLOGY: DO YOU HAVE A PACEMAKER OR DEFIBRILLATOR? NO . RESPIRATORY: HAVE YOU BEEN SICK IN THE PAST WEEK? NO . FEVER NO . FLU LIKE SYMPTOMS? NO . COUGH NO . INTEGUMENTARY: DO YOU HAVE ANY RASHES OR OPEN SORES? NO . ALLERGIC/IMMUNO: ARE YOU ALLERGIC TO IV DYE? NO . ANY NEW ALLERGIES? NO . PSYCHIATRIC: DO YOU HAVE THOUGHTS OF HURTING YOURSELF OR SOMEONE ELSE? NO . ARE YOU ABUSED, NEGLECTED, OR IN AN UNSAFE ENVIRONMENT? NO . ENDOCRINOLOGY: ARE YOU DIABETIC? NO . OTHER: DO YOU NEED ANY PRESCRIPTIONS? NO . IF YES, PLEASE LIST: ____ . ANY NEW PROBLEMS WITH YOUR MEDICATIONS? NO . WHEN DID YOU LAST EAT? 06/29/19 1900 . WHEN DID YOU LAST DRINK? 06/30/19 0430 . WHAT DID YOU LAST DRINK? WATER . NAME OF PERSON DRIVING YOU HOME? ____NITA JANA GOFF . DO YOU HAVE ANY OTHER QUESTIONS OR CONCERNS NO . VITAL SIGNS WT 254.8 LBS, HT 69 IN, BMI 37.62 INDEX, BP 157/84 MM HG, HR 98 /MIN, RR 18 /MIN, TEMP 98.7 F, OXYGEN SAT % 98%, NA INITIALS SC 11:30, REVIEWED BY: BV. ASSESSMENTS INTERVERTEBRAL DISC DISORDERS WITH RADICULOPATHY, LUMBOSACRAL REGION - M51.17 (PRIMARY) PROCEDURES PN WORKMANS' COMP OPINION IN YOUR OPINION, WAS THE INCIDENT THAT THE PATIENT DESCRIBED THE COMPETENT MEDICAL CAUSE OF THIS INJURY/ILLNESS? YES ARE THE PATIENT'S COMPLAINTS CONSISTENT WITH HIS/HER HISTORY OF THE INJURY/ILLNESS? YES IS THE PATIENT'S HISTORY OF THE INJURY/ILLNESS CONSISTENT WITH YOUR OBJECTIVE FINDING? YES WHAT IS THE PERCENTAGE OF TEMPORARY IMPAIRMENT? MODERATE TO MARKED = 66.7% IS THE PATIENT WORKING? NO DOCTOR ON SITE: DELMER BENAVIDES MD PRE PROCEDURE DIAGNOSIS LUMBOSACRAL SPINAL STENOSIS, LUMBOSACRAL DISC DISORDER WITH RADICULOPATHY POST PROCEDURE DIAGNOSIS LUMBOSACRAL SPINAL STENOSIS , LUMBOSACRAL DISC DISORDER WITH RADICULOPATHY PROCEDURE LUMBAR EPIDURAL STEROID INJECTION UNDER FLUOROSCOPIC GUIDANCE SURGEON DR. DELMER MACARIO SAXOPHONE ASSEMBLER NONE ANESTHESIA LOCAL PRE PROCEDURE NOTE THE PATIENT HAS A HISTORY OF CHRONIC LOW BACK PAIN. I EVALUATED THE PATIENT AND REVIEWED THE CHART. I WENT OVER THE RISKS, ALTERNATIVES, AND BENEFITS ASSOCIATED WITH THIS PROCEDURE. THE PATIENT WOULD LIKE TO PROCEED AND GIVES CONSENT TO PERFORM THE PROCEDURE. THE PATIENT DENIES UNEXPLAINABLE WEIGHT LOSS, FEVER, CHILLS, OR NEW CHANGES IN URINARY OR BOWEL CONTROL. DESCRIPTION OF PROCEDURE THE PATIENT WAS BROUGHT TO THE PROCEDURE ROOM AND PLACED IN THE PRONE POSITION. THE LUMBOSACRAL AREA WAS CLEANED WITH BETADINE SOLUTION AND DRAPED ASEPTICALLY. THE PROCEDURE WAS DONE UNDER STERILE CONDITIONS. I CHECKED LATERALITY AND THE LEVEL WHERE THE PROCEDURE WAS GOING TO BE PERFORMED WITH THE PATIENT AND THE SUPPORTING STAFF AT THE MOMENT OF THE TIME OUT IN THE PROCEDURE ROOM. UNDER FLUOROSCOPIC GUIDANCE, THE TARGET POINT WAS SELECTED AT THE INTERLAMINAR LEVEL OF L5-S1. LIDOCAINE WAS USED TO NUMB THE SKIN AND THE SUBCUTANEOUS TISSUE BELOW IT. EPIDURAL TUOHY NEEDLE, 17-GAUGE, WAS ADVANCED UNDER FLUOROSCOPIC GUIDANCE AND FOLLOWING PATIENT FEEDBACK UNTIL THE EPIDURAL SPACE WAS REACHED, 7 CM DEEP INTO THE SKIN BY THE LOSS OF RESISTANCE TECHNIQUE. I ADVANCED A 19-GAUGE EPIMED CATHETER THROUGH A 16-GAUGE NEEDLE TO THE LEFT OF L4-L5. ISOVUE M DYE 30%, 0.25 ML, WAS INJECTED SHOWING ADEQUATE SPREAD OF THE DYE. THEN, A SOLUTION OF 3 ML OF NORMAL SALINE WITH DEPO-MEDROL 60 MG WAS INJECTED SLOWLY FOLLOWING PATIENT FEEDBACK. THERE WAS NO EVIDENCE OF BLOOD, PARESTHESIA OR CEREBROSPINAL FLUID DURING THE PROCEDURE. THE PATIENT WAS SENT TO THE RECOVERY ROOM. THE PATIENT WAS MOVING THE EXTREMITIES AND DOING WELL. THERE WAS NO COMPLICATION DURING THE PROCEDURE. FLUOROSCOPY TIME WAS 7 SECONDS. POST PROCEDURE NOTE THE PATIENT WILL BE SEEN IN A FOLLOW UP IN THE NEXT FEW WEEKS. I AM LOOKING FOR LONG LASTING PAIN RELIEF WITH THIS INJECTION. INSTRUCTIONS WERE GIVEN, QUESTIONS WERE ANSWERED, AND THE PATIENT EXPRESSED UNDERSTANDING AND AGREES WITH THE PLAN. I, SAIRA MARIA, DOCUMENTED THE ABOVE INFORMATION ACTING A SCRIBE FOR DR. MACARIO. I HAVE REVIEWED THE ABOVE DOCUMENT, WRITTEN BY SAIRA LAM AND I VERIFY THAT IT IS ACCURATE. DIAGNOSTIC IMAGING [facility] FLUORO GUIDE SPINE INJECTION (PAIN)[id number] PROCEDURE CODES 52063 LUMBAR/SACRAL W/ IMAGING 6045F RADXPS IN END [id number] PXD DISPOSITION & COMMUNICATION FOLLOW UP 2 WEEKS ELECTRONICALLY SIGNED BY DELMER MACARIO MD, MD ON 07/10/2019 AT 10:26 AM EST DISCLAIMER : THIS IS A VISIT SUMMARY EXTRACTED FROM THE [employer] CHART. IT IS NOT A COPY OF THE [employer] PROGRESS NOTE. MTDD
== END ==
LOC: M PAIN 11:45
PROVIDERS: ATTEND Anesthesiology
DX: M51.17 Intervertebral disc disorders with radiculopathy, lumbosacral region (principal); I10 Essential (primary) hypertension; E78.5 Hyperlipidemia, unspecified; K21.9 Gastro-esophageal reflux disease without esophagitis; G47.33 Obstructive sleep apnea (adult) (pediatric); Z87.891 Personal history of nicotine dependence; Z88.8 Allergy status to other drugs, medicaments and biological substances; Z79.82 Long term (current) use of aspirin; Z79.899 Other long term (current) drug therapy
CPT/HCPCS: 62323; J1030; Q9967

== ENCOUNTER → 2019-07-16 | Outpatient (CLI) | payer OTHER ==
[~2019-07-16] MED LIST changes: -ISOVUE-M 300 61% 15ML VIAL (Q9967) As Ordered ONE; -LIDOCAINE 1% SDV INJ 30 ML VIAL As Ordered ONE; -diazePAM 5 MG TAB As Ordered ONE; -methylPREDNISolone SUSP 40 MG/ML (DEPO-medrol) VIAL (J1030) As Ordered ONE; -oxyCODONE 5MG TAB As Ordered ONE
--- NOTE | 2019-07-18 03:39 | ECWPNPC ---
PATIENT NAME: NITA BATES : 1955 GENDER: MALE VISIT DATE: 07/16/2019 DISCHARGE DATE: 07/16/19 1132 VISIT LOCKED DATE TIME: PHYSICIAN: DO CACERES RESOURCE: DO CACERES REASON FOR APPOINTMENT 1. W/C POST LESI HISTORY OF PRESENT ILLNESS HISTORY OF PRESENT ILLNESS: PAIN THE PATIENT DESCRIBES THE PAIN... 64-YEAR-OLD MALE IN FOR POST LESI FOLLOW-UP. PATIENT FEELS THE PROCEDURE WAS INEFFECTIVE. HE RATES HIS PAIN CURRENTLY AT A 6 OUT OF 10 AND DESCRIBES IT ACHING. 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 HE WAS HE WAS REPLACING A SPRING BUSHING ON AN ARTICULATED DUMP TRUCK, WHEN HE TWISTED AND FELT AN INTENSE SHARP PAIN IN HIS LEFT LOWER BACK. HE DESCRIBED THE PAIN SHARP, LIKE AN ELECTRIC SHOCK SHOOTING FROM HIS BACK ALL THE WAY DOWN HIS LEFT LEG AND TO HIS TOES, WHERE HE FELT NUMBNESS. HE FINISHED HIS SHIFT, BUT THE PAIN GOT WORSE THROUGHOUT THE DAY. BY THE NEXT MORNING HE COULD NOT BEAR WEIGHT ON HIS LEGS OR WALK AT ALL. HE WAS FORCED TO CALL AN AMBULANCE AND WAS TRANSPORTED TO THE EMERGENCY DEPARTMENT. X-RAYS AND MRIS SHOWED A HERNIATED LUMBAR DISC PRESSING DIRECTLY ON THE LEFT FIFTH NERVE ROOT. HE WAS HOSPITALIZED FOR ANOTHER 4 DAYS FOR PAIN MANAGEMENT AND WAS FINALLY SENT HOME ON 12/30/2018. FALL RISK SCREENING: SCREENING :NO FALLS REPORTED IN THE LAST YEAR CURRENT MEDICATIONS TAKING LOSARTAN POTASSIUM 25 MG TABLET 1 TABLET ORALLY ONCE A DAY, NOTES: 06/30/19429 TAKING AMLODIPINE BESYLATE 5 MG TABLET 1 TABLET ORALLY ONCE A DAY, NOTES: 06/30/19429 TAKING ASPIRIN 81 MG TABLET 1 TABLET ORALLY ONCE A DAY, NOTES: 06/29/19 PM TAKING ROSUVASTATIN CALCIUM 40 MG TABLET 1 TABLET ORALLY ONCE A DAY, NOTES: 06/29/19 PM TAKING OMEPRAZOLE 20 MG CAPSULE DELAYED RELEASE 1 CAPSULE ORALLY ONCE A DAY, NOTES: 06/30/19429 MEDICATION LIST REVIEWED AND RECONCILED WITH THE PATIENT PAST MEDICAL HISTORY ESSENTIAL (PRIMARY) HYPERTENSION HYPERLIPIDEMIA RIGHT INGUINAL MASS - CT AND U/S WERE ESSENTIALLY NEGATIVE, POSSIBLE LIPOMA OR NON-PATHOLOGIC ADENOPATHY - STABLE GERD LIAM ON BIPAP BPH MICROALBUMINEMIA 10/2014 NORMALIZED 02/2015 BILATERAL KNEE PAIN-RECIEVED INJECTIONS LBP ETOH ABUSE ALLERGIES LISINOPRIL: COUGH - SIDE EFFECTS SURGICAL HISTORY BACK SURGERY 2006 WRIST SURGERY, LEFT KNEE SURGERY,LEFT ACL IN HIS 30S TURP 2016 CYSTOSCOPY 10/2018 DVIU 11/06/2018 FAMILY HISTORY FATHER: 40'S YRS, MVA MOTHER: 64 YRS, HEART DISEASE SIBLINGS: 1 BROTHER HAD HI AND CVA - AT 59. SISTERS (2) ALIVE AND WELL. SON(S): 2 SONS, NO KNOWN MEDICAL PROBLEMS 1 BROTHER(S) , 2 SISTER(S) . 2 SON(S) - HEALTHY. NO H/O DM, CAD, STROKE OR CANCER, NO KNOWN FAMILY HISTORY OF ANY UROLOGICALLY RELATED DISEASES\/CANCERS. SOCIAL HISTORY GENERAL: TOBACCO USE ARE YOU A:FORMER SMOKER HOW LONG HAS IT BEEN SINCE YOU LAST SMOKED?5-10 YEARS DIET: REGULAR. LANGUAGE SINHALA. DOMESTIC VIOLENCE NONE. BMI CARE GOAL FOLLOW-UP ABOVE NORMAL BMI FOLLOW-UPDIETARY NEEDS EDUCATION RECREATIONAL DRUG USE DENIES. EXERCISE: NO REGULAR EXERCISE. LEARNING BARRIERS / SPECIAL NEEDS CHANGE FROM LAST VISIT?NO BARRIERS TO LEARNING?NO HEARING IMPAIRED?NO VISION IMPAIRED?YES COGNITIVELY IMPAIRED?NO :CORRECTIVE LENSES READINESS TO LEARN?YES LEARNING PREFERENCES?NO LEARNING CAPABILITIES PRESENT?YES EMOTIONAL BARRIERS?NO SPECIAL DEVICES?NO PIN CHASER NEEDED?NO LUNG CANCER SCREENING SMOKING STATUS:NON SMOKER PAIN CLINIC PFS, CLERGY, PUBLIC HEALTH REFERRALS WAS THE PROVIDER NOTIFIED OF ANY PERTINENT INFO?YES HAS THE PATIENT BEEN EDUCATED REGARDING HIS/HER PLAN OF CARE?YES HAS THE PATIENT BEEN EDUCATED REGARDING PAIN, THE RISK FOR PAIN, THE IMPORTANCE OF EFFECTIVE PAIN MANAGEMENT, AND THE PAIN ASSESSMENT PROCESS?YES LATEX QUESTIONNAIRE LATEX ALLERGY : HAVE YOU EVER DEVELOPED ANY TYPE OF REACTION AFTER HANDLING LATEX PRODUCTS SUCH RUBBER GLOVES, CONDOMS, DIAPHRAGMS, BALLOONS, SOCKS, OR UNDERWEAR?NO LATEX ALLERGY : HAVE YOU EVER DEVELOPED ANY TYPE OF REACTION DURING OR AFTER DENTAL APPOINTMENT, VAGINAL/RECTAL EXAMINATION, SURGICAL PROCEDURE, OR ANY OTHER EXPOSURE?NO LATEX RISK : HAVE YOU EVER HAD ANY DIFFICULTY BREATHING OR HIVES AFTER EATING OR HANDLING ANY FRUITS, OR VEGETABLES; SUCH KIWI, BANANAS, STONE FRUITS, OR CHESTNUTSNO LATEX RISK : DO YOU HAVE A PREVIOUS PERSONAL HISTORY OF MORE THAN NINE SURGERIES, SPINA BIFIDA, OR REPEATED CATHERIZATIONS? NO LATEX RISK : ARE YOU FREQUENTLY EXPOSED TO LATEX PRODUCTS IN YOUR OCCUPATION?NO DATE ASKED : 07/16/2019 CAFFEINE CAFFEINE USE?YES 1 CUP COFFEE DAILY (DECAF) AND 2 SODAS DAILY ADVANCE DIRECTIVE ADVANCE DIRECTIVE DISCUSSED WITH PATIENT:YES PT DECLINES HCP INFORMATION AND DECLINES ASSISTANCE WITH FORM. MU-ISM NO SCIENTOLOGIST BELIEFS THAT WOULD IMPACT HEALTH CARE. MARITAL STATUS: . ALCOHOL SCREENING POINTS: 5, INTERPRETATION: POSITIVE. 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 SEXUAL HX HAD SEX IN THE LAST 12 MONTHS (VAGINAL, ORAL, OR ANAL)?: NO, HAVE YOU EVER HAD AN STD?: NO. REVIEWED WITH PT. 03/21/19 1439 BVPRE ADMISSION COMPLETE 06-27-19 KG [id number] REVIEWED WITH PATIENT DS. HOSPITALIZATION/MAJOR DIAGNOSTIC PROCEDURE SURGERIES REVIEW OF SYSTEMS REVIEWED BY: PROVIDER: VIKI OVALLES . CONSTITUTIONAL: ANY CHANGE IN YOUR MEDICAL CONDITION? NO . CHILLS NO . FEVER NO . INFECTION: DO YOU HAVE NEW INFECTIONS? NO . DO YOU HAVE HISTORY OF MRSA? NO . MUSCULOSKELETAL: ANY NEW PATTERNS OF PAIN OR NUMBNESS? NO . GASTROENTEROLOGY: ANY NEW CHANGE IN BOWEL CONTROL? NO . GENITOURINARY: ANY NEW CHANGE IN BLADDER CONTROL? NO . IS THERE A CHANCE YOU COULD BE ? NO . HEMATOLOGY/LYMPH: DO YOU TAKE ANY BLOOD THINNERS? (FOR EXAMPLE- COUMADIN, PLAVIX, AGGRENOX, PLATEL, PRADAXA, OR XARELTO) NO . WHEN WAS YOUR LAST DOSE? DATE: TIME: . NEUROLOGY: HAVE YOU FALLEN IN THE PAST 12 MONTHS? NO . ANY NEW EXTREMITY NUMBNESS OR WEAKNESS? NO . CARDIOLOGY: DO YOU HAVE A PACEMAKER OR DEFIBRILLATOR? NO . RESPIRATORY: HAVE YOU BEEN SICK IN THE PAST WEEK? NO . FEVER NO . FLU LIKE SYMPTOMS? NO . COUGH NO . INTEGUMENTARY: DO YOU HAVE ANY RASHES OR OPEN SORES? NO . ALLERGIC/IMMUNO: ARE YOU ALLERGIC TO IV DYE? NO . ANY NEW ALLERGIES? NO . PSYCHIATRIC: DO YOU HAVE THOUGHTS OF HURTING YOURSELF OR SOMEONE ELSE? NO . ARE YOU ABUSED, NEGLECTED, OR IN AN UNSAFE ENVIRONMENT? NO . ENDOCRINOLOGY: ARE YOU DIABETIC? NO . OTHER: DO YOU NEED ANY PRESCRIPTIONS? PT IS INTERESTED IN PAIN MEDS FOR BACK PAIN . IF YES, PLEASE LIST: ____ . ANY NEW PROBLEMS WITH YOUR MEDICATIONS? NO . WHEN DID YOU LAST EAT? ____ . WHEN DID YOU LAST DRINK? ____ . WHAT DID YOU LAST DRINK? ____ . NAME OF PERSON DRIVING YOU HOME? ____ . DO YOU HAVE ANY OTHER QUESTIONS OR CONCERNS NO . VITAL SIGNS WT 254.7 LBS, HT 69 IN, BMI 37.61 INDEX, BP 142/80 MM HG, HR 91 /MIN, RR 18 /MIN, TEMP 97.4 F, OXYGEN SAT % 97. EXAMINATION GENERAL EXAMINATION: GENERALNO ACUTE DISTRESS, WELL NOURISHED AND HYDRATED. PSYCHAPPROPRIATE MOOD AND AFFECT . LUNGS:CLEAR TO AUSCULTATION BILATERALLY, NO WHEEZES, RHONCHI, RALES. HEART:NO MURMURS, REGULAR RATE AND RHYTHM. ASSESSMENTS INTERVERTEBRAL DISC DISORDERS WITH RADICULOPATHY, LUMBAR REGION - M51.16 (PRIMARY) TREATMENT INTERVERTEBRAL DISC DISORDERS WITH RADICULOPATHY, LUMBAR REGION START TIZANIDINE HCL TABLET, 4 MG, 1 TABLET NEEDED, ORALLY, THREE TIMES A DAY, 30 DAYS, 90 TABLET CLINICAL NOTES: 64-YEAR-OLD MALE IN FOR POST LESI FOLLOW-UP. GIVEN PRESENTING SYMPTOMS AND RESULTS OF PHYSICAL EXAMINATION RECOMMENDED STARTING TIZANIDINE 3 TIMES A DAY NEEDED WITH FOLLOW-UP IN ONE MONTH TO DETERMINE EFFICACY OF TREATMENT. PATIENT HAS EXPRESSED UNDERSTANDING OF AND WAS IN AGREEMENT WITH TREATMENT PLAN. GIVEN TIME TO ASK QUESTIONS AND EXPRESS CONCERNS. PROCEDURES PN WORKMANS' COMP OPINION IN YOUR OPINION, WAS THE INCIDENT THAT THE PATIENT DESCRIBED THE COMPETENT MEDICAL CAUSE OF THIS INJURY/ILLNESS? YES ARE THE PATIENT'S COMPLAINTS CONSISTENT WITH HIS/HER HISTORY OF THE INJURY/ILLNESS? YES IS THE PATIENT'S HISTORY OF THE INJURY/ILLNESS CONSISTENT WITH YOUR OBJECTIVE FINDING? YES WHAT IS THE PERCENTAGE OF TEMPORARY IMPAIRMENT? MODERATE TO MARKED = 66.7% IS THE PATIENT WORKING? NO DOCTOR ON SITE: DELMER BENAVIDES MD PREVENTIVE MEDICINE PAIN CLINIC TEACHING: THE PATIENT HAS BEEN EDUCATED REGARDING PAIN, THE RISK FOR PAIN, THE IMPORTANCE OF EFFECTIVE PAIN MANAGEMENT, AND THE PAIN ASSESSMENT PROCESS. : PRINTED AND DISCUSSED WRITTEN MATERIAL ON FLEXERIL FOR PT, DISCUSSED TREATMENT PLAN FOR PT, PT ACKNOWLEDGED UNDERSTANING. AFTER PT D/C'D PROVIDER MODIFIED PRESCRIPTION MEDICATION, WILL SEND UPDATE TO PT VIA PHONE, WILL MAIL WRITTEN INSTRUCTIONS FOR MEDICATION TIZANIDINE. DS SPOKE WITH PT VIA PHONE, EDUCATED PT REGARDING UPDATED MEDICATION PRESCRIPTION, DISCUSSED EFFECT AND SIDE EFFECTS OF MEDICATION WITH PT, PT ACKNOWLEDGED UNDERSTANDING. DS PROCEDURE CODES FA211 ESTABILISHED PATIENT [facility] CHARGE DISPOSITION & COMMUNICATION FOLLOW UP 4 WEEKS (REASON: BACK PAIN, NEW MED) ELECTRONICALLY SIGNED BY LETICIA STAFFORD ON 07/17/2019 AT 08:41 AM EST DISCLAIMER : THIS IS A VISIT SUMMARY EXTRACTED FROM THE [employer] CHART. IT IS NOT A COPY OF THE [employer] PROGRESS NOTE. ANA ROSA
== END ==
LOC: M PAIN 11:00
PROVIDERS: ATTEND Family Medicine
DX: M51.16 Intervertebral disc disorders with radiculopathy, lumbar region (principal); I10 Essential (primary) hypertension; E78.5 Hyperlipidemia, unspecified; K21.9 Gastro-esophageal reflux disease without esophagitis; G47.33 Obstructive sleep apnea (adult) (pediatric); Z87.891 Personal history of nicotine dependence; Z88.8 Allergy status to other drugs, medicaments and biological substances; Z79.82 Long term (current) use of aspirin; Z79.899 Other long term (current) drug therapy

== ENCOUNTER → 2019-08-11 | Outpatient (REF) | payer OTHER | LOC: M SFHCADAM 17:37 | PROVIDERS: ATTEND Family Medicine | DX: R35.0 Frequency of micturition (principal) ==

== ENCOUNTER → 2019-08-18 | Outpatient (CLI) | payer OTHER ==
--- NOTE | 2019-08-21 03:05 | ECWPNPC ---
PATIENT NAME: NITA BATES : 1955 GENDER: MALE VISIT DATE: 08/18/2019 DISCHARGE DATE: 08/18/19 1043 VISIT LOCKED DATE TIME: PHYSICIAN: DO CACERES RESOURCE: DO CACERES REASON FOR APPOINTMENT 1. BACK PAIN, NEW MED HISTORY OF PRESENT ILLNESS HISTORY OF PRESENT ILLNESS: PAIN THE PATIENT DESCRIBES THE PAIN... 64-YEAR-OLD MALE IN FOR CHRONIC PAIN FOLLOW-UP. AT LAST CLINIC VISIT HE WAS STARTED ON TIZANIDINE AND ADMITS TODAY THAT THIS HAS BEEN HELPFUL. HE RATES HIS PAIN CURRENTLY AT AN 8 OUT OF 10 AND DESCRIBES IT ACHING. FALL RISK SCREENING: SCREENING :NO FALLS REPORTED IN THE LAST YEAR CURRENT MEDICATIONS TAKING LOSARTAN POTASSIUM 25 MG TABLET 1 TABLET ORALLY ONCE A DAY TAKING AMLODIPINE BESYLATE 5 MG TABLET 1 TABLET ORALLY ONCE A DAY TAKING ASPIRIN 81 MG TABLET 1 TABLET ORALLY ONCE A DAY TAKING ROSUVASTATIN CALCIUM 40 MG TABLET 1 TABLET ORALLY ONCE A DAY TAKING OMEPRAZOLE 20 MG CAPSULE DELAYED RELEASE 1 CAPSULE ORALLY ONCE A DAY TAKING TIZANIDINE HCL 4 MG TABLET 1 TABLET NEEDED ORALLY THREE TIMES A DAY MEDICATION LIST REVIEWED AND RECONCILED WITH THE PATIENT PAST MEDICAL HISTORY ESSENTIAL (PRIMARY) HYPERTENSION HYPERLIPIDEMIA RIGHT INGUINAL MASS - CT AND U/S WERE ESSENTIALLY NEGATIVE, POSSIBLE LIPOMA OR NON-PATHOLOGIC ADENOPATHY - STABLE GERD LIAM ON BIPAP BPH MICROALBUMINEMIA 10/2014 NORMALIZED 02/2015 BILATERAL KNEE PAIN-RECIEVED INJECTIONS LBP ETOH ABUSE ALLERGIES LISINOPRIL: COUGH - SIDE EFFECTS SURGICAL HISTORY BACK SURGERY 2006 WRIST SURGERY, LEFT KNEE SURGERY,LEFT ACL IN HIS 30S TURP 2016 CYSTOSCOPY 10/2018 DVIU 11/06/2018 FAMILY HISTORY FATHER: 40'S YRS, MVA MOTHER: 64 YRS, HEART DISEASE SIBLINGS: 1 BROTHER HAD [place] AND CVA - AT 59. SISTERS (2) ALIVE AND WELL. SON(S): 2 SONS, NO KNOWN MEDICAL PROBLEMS 1 BROTHER(S) , 2 SISTER(S) . 2 SON(S) - HEALTHY. NO H/O DM, CAD, STROKE OR CANCER, NO KNOWN FAMILY HISTORY OF ANY UROLOGICALLY RELATED DISEASES\/CANCERS. SOCIAL HISTORY GENERAL: TOBACCO USE ARE YOU A:FORMER SMOKER HOW LONG HAS IT BEEN SINCE YOU LAST SMOKED?5-10 YEARS DIET: REGULAR. LANGUAGE ESTONIAN. DOMESTIC VIOLENCE NONE. BMI CARE GOAL FOLLOW-UP ABOVE NORMAL BMI FOLLOW-UPDIETARY NEEDS EDUCATION RECREATIONAL DRUG USE DENIES. EXERCISE: NO REGULAR EXERCISE. LEARNING BARRIERS / SPECIAL NEEDS CHANGE FROM LAST VISIT?NO BARRIERS TO LEARNING?NO HEARING IMPAIRED?NO VISION IMPAIRED?YES COGNITIVELY IMPAIRED?NO :CORRECTIVE LENSES READINESS TO LEARN?YES LEARNING PREFERENCES?NO LEARNING CAPABILITIES PRESENT?YES EMOTIONAL BARRIERS?NO SPECIAL DEVICES?NO SHIPYARD HELPER NEEDED?NO LUNG CANCER SCREENING SMOKING STATUS:NON SMOKER PAIN CLINIC PFS, CLERGY, PUBLIC HEALTH REFERRALS WAS THE PROVIDER NOTIFIED OF ANY PERTINENT INFO?YES HAS THE PATIENT BEEN EDUCATED REGARDING HIS/HER PLAN OF CARE?YES HAS THE PATIENT BEEN EDUCATED REGARDING PAIN, THE RISK FOR PAIN, THE IMPORTANCE OF EFFECTIVE PAIN MANAGEMENT, AND THE PAIN ASSESSMENT PROCESS?YES LATEX QUESTIONNAIRE LATEX ALLERGY : HAVE YOU EVER DEVELOPED ANY TYPE OF REACTION AFTER HANDLING LATEX PRODUCTS SUCH RUBBER GLOVES, CONDOMS, DIAPHRAGMS, BALLOONS, SOCKS, OR UNDERWEAR?NO LATEX ALLERGY : HAVE YOU EVER DEVELOPED ANY TYPE OF REACTION DURING OR AFTER DENTAL APPOINTMENT, VAGINAL/RECTAL EXAMINATION, SURGICAL PROCEDURE, OR ANY OTHER EXPOSURE?NO LATEX RISK : HAVE YOU EVER HAD ANY DIFFICULTY BREATHING OR HIVES AFTER EATING OR HANDLING ANY FRUITS, OR VEGETABLES; SUCH KIWI, BANANAS, STONE FRUITS, OR CHESTNUTSNO LATEX RISK : DO YOU HAVE A PREVIOUS PERSONAL HISTORY OF MORE THAN NINE SURGERIES, SPINA BIFIDA, OR REPEATED CATHERIZATIONS? NO LATEX RISK : ARE YOU FREQUENTLY EXPOSED TO LATEX PRODUCTS IN YOUR OCCUPATION?NO DATE ASKED : 07/16/2019 CAFFEINE CAFFEINE USE?YES 1 CUP COFFEE DAILY (DECAF) AND 2 SODAS DAILY ADVANCE DIRECTIVE ADVANCE DIRECTIVE DISCUSSED WITH PATIENT:YES 08/18/2019 PT DECLINES HCP INFORMATION AND DECLINES ASSISTANCE WITH FORM - STATES HE HAS THE INFORMATION AT HOME. JS GNOSTICISM NO SYNAGOGUE BELIEFS THAT WOULD IMPACT HEALTH CARE. MARITAL STATUS: . ALCOHOL SCREENING POINTS: 5, INTERPRETATION: POSITIVE. 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. SEXUAL HX HAD SEX IN THE LAST 12 MONTHS (VAGINAL, ORAL, OR ANAL)?: NO, HAVE YOU EVER HAD AN STD?: NO. REVIEWED WITH PT. 03/21/19 1439 BVPRE ADMISSION COMPLETE 06-27-19 KG [id number] REVIEWED WITH PATIENT DSREVIEWED WITH PATIENT 08/18/2019 1024 JS. HOSPITALIZATION/MAJOR DIAGNOSTIC PROCEDURE SURGERIES REVIEW OF SYSTEMS REVIEWED BY: PROVIDER: VIKI OVALLES . CONSTITUTIONAL: ANY CHANGE IN YOUR MEDICAL CONDITION? NO . CHILLS NO . FEVER NO . INFECTION: DO YOU HAVE NEW INFECTIONS? NO . DO YOU HAVE HISTORY OF MRSA? NO . MUSCULOSKELETAL: ANY NEW PATTERNS OF PAIN OR NUMBNESS? NO . GASTROENTEROLOGY: ANY NEW CHANGE IN BOWEL CONTROL? NO . GENITOURINARY: ANY NEW CHANGE IN BLADDER CONTROL? NO . IS THERE A CHANCE YOU COULD BE ? NO . HEMATOLOGY/LYMPH: DO YOU TAKE ANY BLOOD THINNERS? (FOR EXAMPLE- COUMADIN, PLAVIX, AGGRENOX, PLATEL, PRADAXA, OR XARELTO) NO . WHEN WAS YOUR LAST DOSE? DATE: TIME: . NEUROLOGY: HAVE YOU FALLEN IN THE PAST 12 MONTHS? NO . ANY NEW EXTREMITY NUMBNESS OR WEAKNESS? YES, STATES NUMBNESS AND WEAKNESS IN LEFT LEG/FOOT THE PAST COUPLE OF WEEKS . CARDIOLOGY: DO YOU HAVE A PACEMAKER OR DEFIBRILLATOR? NO . RESPIRATORY: HAVE YOU BEEN SICK IN THE PAST WEEK? NO . FEVER NO . FLU LIKE SYMPTOMS? NO . COUGH NO . INTEGUMENTARY: DO YOU HAVE ANY RASHES OR OPEN SORES? NO . ALLERGIC/IMMUNO: ARE YOU ALLERGIC TO IV DYE? NO . ANY NEW ALLERGIES? NO . PSYCHIATRIC: DO YOU HAVE THOUGHTS OF HURTING YOURSELF OR SOMEONE ELSE? NO . ARE YOU ABUSED, NEGLECTED, OR IN AN UNSAFE ENVIRONMENT? NO . ENDOCRINOLOGY: ARE YOU DIABETIC? NO . OTHER: DO YOU NEED ANY PRESCRIPTIONS? YES . IF YES, PLEASE LIST: ____TIZANIDINE . ANY NEW PROBLEMS WITH YOUR MEDICATIONS? NO . WHEN DID YOU LAST EAT? ____ . WHEN DID YOU LAST DRINK? ____ . WHAT DID YOU LAST DRINK? ____ . NAME OF PERSON DRIVING YOU HOME? ____ . DO YOU HAVE ANY OTHER QUESTIONS OR CONCERNS NO . VITAL SIGNS WT 257 LBS, HT 69 IN, BMI 37.95 INDEX, BP 158/84 MM HG, HR 90 /MIN, RR 18 /MIN, TEMP 98.1 F, OXYGEN SAT % 96%, SAFE IN ENV? (Y/N) YES, NA INITIALS AW 1028, REVIEWED BY: ADA. EXAMINATION GENERAL EXAMINATION: GENERALNO ACUTE DISTRESS, WELL NOURISHED AND HYDRATED. PSYCHAPPROPRIATE MOOD AND AFFECT . LUNGS:CLEAR TO AUSCULTATION BILATERALLY, NO WHEEZES, RHONCHI, RALES. HEART:NO MURMURS, REGULAR RATE AND RHYTHM. ASSESSMENTS INTERVERTEBRAL DISC DISORDERS WITH RADICULOPATHY, LUMBAR REGION - M51.16 (PRIMARY) TREATMENT INTERVERTEBRAL DISC DISORDERS WITH RADICULOPATHY, LUMBAR REGION START DICLOFENAC SODIUM TABLET DELAYED RELEASE, 50 MG, 1 TABLET, ORALLY, TWICE A DAY PRN, 30 DAY(S), 60 REFILL TIZANIDINE HCL TABLET, 4 MG, 1 TABLET NEEDED, ORALLY, THREE TIMES A DAY, 30 DAYS, 90 TABLET CLINICAL NOTES: 64-YEAR-OLD MALE IN FOR CHRONIC PAIN FOLLOW-UP OR GIVEN PRESENTING SYMPTOMS AND RESULTS PHYSICAL EXAMINATION RECOMMENDED CONTINUING TIZANIDINE AND STARTING DICLOFENAC SODIUM 50 MG TWICE A DAY NEEDED. PATIENT WAS ENCOURAGED NOT TO TAKE OTHER NSAIDS WHILE HE IS ON THIS MEDICATION AND TO TAKE THIS MEDICATION WITH FOOD. PATIENT HAS EXPRESSED UNDERSTANDING OF AND WAS IN AGREEMENT WITH TREATMENT PLAN. GIVEN TIME TO ASK QUESTIONS AND EXPRESS CONCERNS. PREVENTIVE MEDICINE PAIN CLINIC TEACHING: MEDICATIONS PRINTED AND REVIEWED INFORMATION ON NEW MEDICATION, DICLOFENAC, WITH PATIENT. ALSO REVIEWED PRE-PROCEDURE INSTRUCTIONS. FELIX ODOM 08/18/2019 1:45:08 PM > . PROCEDURE CODES FA211 ESTABILISHED PATIENT [facility] CHARGE DISPOSITION & COMMUNICATION FOLLOW UP 2 MONTHS (REASON: BACK PAIN) ELECTRONICALLY SIGNED BY LETICIA STAFFORD ON 08/20/2019 AT 12:34 PM EST DISCLAIMER : THIS IS A VISIT SUMMARY EXTRACTED FROM THE [employer] CHART. IT IS NOT A COPY OF THE [employer] PROGRESS NOTE. ANA ROSA
== END ==
LOC: M PAIN 09:45
PROVIDERS: ATTEND Family Medicine
DX: M51.16 Intervertebral disc disorders with radiculopathy, lumbar region (principal); G89.29 Other chronic pain; I10 Essential (primary) hypertension; E78.5 Hyperlipidemia, unspecified; K21.9 Gastro-esophageal reflux disease without esophagitis; G47.33 Obstructive sleep apnea (adult) (pediatric); Z87.891 Personal history of nicotine dependence; Z88.8 Allergy status to other drugs, medicaments and biological substances; Z79.82 Long term (current) use of aspirin; Z79.899 Other long term (current) drug therapy

== ENCOUNTER → 2019-09-23 | Outpatient (REF) | payer OTHER ==
[2019-09-23 13:24] LABS: HEMATOCRIT 44.7 % (42.0-52.0); HEMOGLOBIN 14.7 g/dl (13.5-17.5); MEAN CORPUSCULAR HEMOGLOBIN 29.4 pg (27.0-33.0); MEAN CORPUSCULAR HGB CONC 32.9 g/dl (32.0-36.5); MEAN CORPUSCULAR VOLUME 89.4 fl (80.0-96.0); PLATELET COUNT, AUTOMATED 181 10^3/uL (150-450); WHITE BLOOD COUNT 6.7 10^3/uL (4.0-10.0)
[2019-09-23 13:39] LABS: ALBUMIN 3.8 GM/DL (3.2-5.2); ALT/SGPT 34 U/L (12-78); BILIRUBIN,TOTAL 0.7 MG/DL (0.2-1.0); BLOOD UREA NITROGEN 26 MG/DL (7-18); C REACTIVE PROTEIN QUANTITATIV < 0.30 MG/DL (0.00-0.30); CALCIUM LEVEL 9.4 MG/DL (8.8-10.2); CARBON DIOXIDE LEVEL 32 MEQ/L (21-32); CHLORIDE LEVEL 105 MEQ/L (98-107); CHOLESTEROL LEVEL 174 MG/DL (<200); CREATININE FOR GFR 1.07 MG/DL (0.70-1.30); FREE T4 0.98 NG/DL (0.76-1.46); GLOMERULAR FILTRATION RATE > 60.0 (>49); GLUCOSE, FASTING 99 MG/DL (70-100); HDL CHOLESTEROL 60 MG/DL (>40); LDL CHOLESTEROL 75 MG/DL (<100); NON-HDL-C 114 MG/DL; POTASSIUM SERUM 4.8 MEQ/L (3.5-5.1); SODIUM LEVEL 137 MEQ/L (136-145); THYROID STIMULATING HORMONE 0.876 uIU/ML (0.358-3.740); TOTAL PROTEIN 7.4 GM/DL (6.4-8.2); TRIGLYCERIDES LEVEL 193 MG/DL (<150)
[2019-09-23 13:44] LABS: ERYTHROCYTE SEDIMENTATION RATE 4 mm/hr (0-20)
[2019-09-23 13:57] LABS: HEMOGLOBIN A1c 6.3 %
[2019-09-23 14:22] LABS: CREATININE, URINE 69.9 MG/DL; MALB URINE SIEMENS 6.8 MG/L; MAU/CREAT RATIO 9.7 MCG/MG (0.0-30.0)
== END ==
LOC: M SFHCADAM 08:35
PROVIDERS: ATTEND Physician Assistant
DX: I10 Essential (primary) hypertension (principal); R73.01 Impaired fasting glucose; N40.0 Benign prostatic hyperplasia without lower urinary tract symptoms; E78.5 Hyperlipidemia, unspecified; R60.0 Localized edema; L53.9 Erythematous condition, unspecified; N32.81 Overactive bladder; M79.604 Pain in right leg; R80.0 Isolated proteinuria; Z79.82 Long term (current) use of aspirin; Z79.899 Other long term (current) drug therapy
CPT/HCPCS: 80053; 80061; 82043; 83036; 84439; 84443; 85027; 85652; 86140; G0103

== ENCOUNTER → 2019-10-31 | Outpatient (CLI) | payer OTHER ==
--- NOTE | 2019-11-04 04:37 | ECWPNPC ---
PATIENT NAME: NITA BATES : 1955 GENDER: MALE VISIT DATE: 10/31/2019 DISCHARGE DATE: 10/31/19 0953 VISIT LOCKED DATE TIME: PHYSICIAN: DO CACERES RESOURCE: DO CACERES REASON FOR APPOINTMENT 1. W/C BACK PAIN PAT PHONE CALL COMPLETED HISTORY OF PRESENT ILLNESS HISTORY OF PRESENT ILLNESS: PAIN THE PATIENT DESCRIBES THE PAIN... 64-YEAR-OLD MALE IN FOR WORKER'S COMP. CHRONIC PAIN FOLLOW-UP. HE ADMITS TO BUILDUP OF FLUID WITH THE DICLOFENAC THAT HE WAS STARTED ON AT LAST CLINIC VISIT SO HE HAS DISCONTINUED USE. HE RATES HIS PAIN CURRENTLY AT A 6 OUT OF 10 AND DESCRIBES IT A CONSTANT ACHE AND STABBING PAIN. 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 HE WAS HE WAS REPLACING A SPRING BUSHING ON AN ARTICULATED DUMP TRUCK, WHEN HE TWISTED AND FELT AN INTENSE SHARP PAIN IN HIS LEFT LOWER BACK. HE DESCRIBED THE PAIN SHARP, LIKE AN ELECTRIC SHOCK SHOOTING FROM HIS BACK ALL THE WAY DOWN HIS LEFT LEG AND TO HIS TOES, WHERE HE FELT NUMBNESS. HE FINISHED HIS SHIFT, BUT THE PAIN GOT WORSE THROUGHOUT THE DAY. BY THE NEXT MORNING HE COULD NOT BEAR WEIGHT ON HIS LEGS OR WALK AT ALL. HE WAS FORCED TO CALL AN AMBULANCE AND WAS TRANSPORTED TO THE EMERGENCY DEPARTMENT. X-RAYS AND MRIS SHOWED A HERNIATED LUMBAR DISC PRESSING DIRECTLY ON THE LEFT FIFTH NERVE ROOT. HE WAS HOSPITALIZED FOR ANOTHER 4 DAYS FOR PAIN MANAGEMENT AND WAS FINALLY SENT HOME ON 12/30/2018. FALL RISK SCREENING: SCREENING :NO FALLS REPORTED IN THE LAST YEAR CURRENT MEDICATIONS TAKING ASPIRIN 81 MG TABLET 1 TABLET ORALLY ONCE A DAY TAKING OMEPRAZOLE 20 MG CAPSULE DELAYED RELEASE 1 CAPSULE ORALLY ONCE A DAY TAKING TIZANIDINE HCL 4 MG TABLET 1 TABLET NEEDED ORALLY AT BEDTIME TAKING ROSUVASTATIN CALCIUM 40 MG TABLET 1 TABLET ORALLY ONCE A DAY TAKING LOSARTAN POTASSIUM 25 MG TABLET 1 TABLET ORALLY ONCE A DAY TAKING AMLODIPINE BESYLATE 5 MG TABLET 1 TABLET ORALLY ONCE A DAY MEDICATION LIST REVIEWED AND RECONCILED WITH THE PATIENT PAST MEDICAL HISTORY ESSENTIAL (PRIMARY) HYPERTENSION HYPERLIPIDEMIA RIGHT INGUINAL MASS - CT AND U/S WERE ESSENTIALLY NEGATIVE, POSSIBLE LIPOMA OR NON-PATHOLOGIC ADENOPATHY - STABLE GERD LIAM ON BIPAP BPH MICROALBUMINEMIA 10/2014 NORMALIZED 02/2015 BILATERAL KNEE PAIN-RECIEVED INJECTIONS LBP ETOH ABUSE PREDIABETES ALLERGIES LISINOPRIL: COUGH - SIDE EFFECTS DICLOFENAC: EDEMA - SIDE EFFECTS SURGICAL HISTORY BACK SURGERY 2006 WRIST SURGERY, LEFT KNEE SURGERY,LEFT ACL IN HIS 30S TURP 2016 CYSTOSCOPY 10/2018 DVIU 11/06/2018 FAMILY HISTORY FATHER: 40'S YRS, MVA MOTHER: 64 YRS, HEART DISEASE SIBLINGS: 1 BROTHER HAD WA AND CVA - AT 59. SISTERS (2) ALIVE AND WELL. SON(S): 2 SONS, NO KNOWN MEDICAL PROBLEMS 1 BROTHER(S) , 2 SISTER(S) . 2 SON(S) - HEALTHY. NO H/O DM, CAD, STROKE OR CANCER, NO KNOWN FAMILY HISTORY OF ANY UROLOGICALLY RELATED DISEASES\/CANCERS. SOCIAL HISTORY GENERAL: TOBACCO USE ARE YOU A:FORMER SMOKER HOW LONG HAS IT BEEN SINCE YOU LAST SMOKED?5-10 YEARS LATEX QUESTIONNAIRE LATEX ALLERGY : HAVE YOU EVER DEVELOPED ANY TYPE OF REACTION AFTER HANDLING LATEX PRODUCTS SUCH RUBBER GLOVES, CONDOMS, DIAPHRAGMS, BALLOONS, SOCKS, OR UNDERWEAR?NO LATEX ALLERGY : HAVE YOU EVER DEVELOPED ANY TYPE OF REACTION DURING OR AFTER DENTAL APPOINTMENT, VAGINAL/RECTAL EXAMINATION, SURGICAL PROCEDURE, OR ANY OTHER EXPOSURE?NO DATE ASKED : 07/16/2019 LATEX RISK : HAVE YOU EVER HAD ANY DIFFICULTY BREATHING OR HIVES AFTER EATING OR HANDLING ANY FRUITS, OR VEGETABLES; SUCH KIWI, BANANAS, STONE FRUITS, OR CHESTNUTSNO LATEX RISK : DO YOU HAVE A PREVIOUS PERSONAL HISTORY OF MORE THAN NINE SURGERIES, SPINA BIFIDA, OR REPEATED CATHERIZATIONS? NO LATEX RISK : ARE YOU FREQUENTLY EXPOSED TO LATEX PRODUCTS IN YOUR OCCUPATION?NO LUNG CANCER SCREENING SMOKING STATUS:NON SMOKER BMI CARE GOAL FOLLOW-UP ABOVE NORMAL BMI FOLLOW-UPDIETARY NEEDS EDUCATION ALCOHOL SCREENING POINTS: 5, INTERPRETATION: POSITIVE. RECREATIONAL DRUG USE DENIES. CAFFEINE CAFFEINE USE?YES 1 CUP COFFEE DAILY (DECAF) AND 2 SODAS DAILY SEXUAL HX HAD SEX IN THE LAST 12 MONTHS (VAGINAL, ORAL, OR ANAL)?: NO, HAVE YOU EVER HAD AN STD?: NO. MUSLIM NO MUSLIM BELIEFS THAT WOULD IMPACT HEALTH CARE. 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 LEARNING BARRIERS / SPECIAL NEEDS CHANGE FROM LAST VISIT?NO BARRIERS TO LEARNING?NO HEARING IMPAIRED?NO VISION IMPAIRED?YES COGNITIVELY IMPAIRED?NO :CORRECTIVE LENSES READINESS TO LEARN?YES LEARNING PREFERENCES?NO LEARNING CAPABILITIES PRESENT?YES EMOTIONAL BARRIERS?NO SPECIAL DEVICES?NO CREMATORY OPERATOR NEEDED?NO DOMESTIC VIOLENCE NONE. 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 DIET: REGULAR. EXERCISE: NO REGULAR EXERCISE. MARITAL STATUS: . NEW PATIENT PAIN DIARY TODAY'S VISIT 10/30/19 PATIENT DESCRIBES PAIN :ACHING, HAVE IT ALL THE TIME FROM 0-10, WHAT LEVEL IS YOUR PAIN TODAY?6 PRECIPITATING FACTORS PROLONGED DRIVING/RIDING IN A CAR ALLEVIATING FACTORS PAIN MEDICATION IMPACT ON FUNCTION YES PAIN CLINIC PFS, CLERGY, PUBLIC HEALTH REFERRALS WAS THE PROVIDER NOTIFIED OF ANY PERTINENT INFO?YES HAS THE PATIENT BEEN EDUCATED REGARDING HIS/HER PLAN OF CARE?YES HAS THE PATIENT BEEN EDUCATED REGARDING PAIN, THE RISK FOR PAIN, THE IMPORTANCE OF EFFECTIVE PAIN MANAGEMENT, AND THE PAIN ASSESSMENT PROCESS?YES ADVANCE DIRECTIVE ADVANCE DIRECTIVE DISCUSSED WITH PATIENT:YES 08/18/2019 PT DECLINES HCP INFORMATION AND DECLINES ASSISTANCE WITH FORM - STATES HE HAS THE INFORMATION AT HOME. JS REVIEWED WITH PT. 03/21/19 1439 BVPRE ADMISSION COMPLETE 06-27-19 KG [id number] REVIEWED WITH PATIENT DSREVIEWED WITH PATIENT 08/18/2019 1024 JS. HOSPITALIZATION/MAJOR DIAGNOSTIC PROCEDURE SURGERIES REVIEW OF SYSTEMS REVIEWED BY: PROVIDER: VIKI OVALLES . CONSTITUTIONAL: ANY CHANGE IN YOUR MEDICAL CONDITION? NO . CHILLS NO . FEVER NO . INFECTION: DO YOU HAVE NEW INFECTIONS? NO . DO YOU HAVE HISTORY OF MRSA? NO . MUSCULOSKELETAL: ANY NEW PATTERNS OF PAIN OR NUMBNESS? NO . GASTROENTEROLOGY: ANY NEW CHANGE IN BOWEL CONTROL? NO . GENITOURINARY: ANY NEW CHANGE IN BLADDER CONTROL? NO . IS THERE A CHANCE YOU COULD BE ? NO . HEMATOLOGY/LYMPH: DO YOU TAKE ANY BLOOD THINNERS? (FOR EXAMPLE- COUMADIN, PLAVIX, AGGRENOX, PLATEL, PRADAXA, OR XARELTO) NO . WHEN WAS YOUR LAST DOSE? DATE: TIME: . NEUROLOGY: HAVE YOU FALLEN IN THE PAST 12 MONTHS? NO . ANY NEW EXTREMITY NUMBNESS OR WEAKNESS? NO . CARDIOLOGY: DO YOU HAVE A PACEMAKER OR DEFIBRILLATOR? NO . RESPIRATORY: HAVE YOU BEEN SICK IN THE PAST WEEK? NO . FEVER NO . FLU LIKE SYMPTOMS? NO . COUGH NO . INTEGUMENTARY: DO YOU HAVE ANY RASHES OR OPEN SORES? NO . ALLERGIC/IMMUNO: ARE YOU ALLERGIC TO IV DYE? NO . ANY NEW ALLERGIES? NO . PSYCHIATRIC: DO YOU HAVE THOUGHTS OF HURTING YOURSELF OR SOMEONE ELSE? NO . ARE YOU ABUSED, NEGLECTED, OR IN AN UNSAFE ENVIRONMENT? NO . ENDOCRINOLOGY: ARE YOU DIABETIC? NO . OTHER: DO YOU NEED ANY PRESCRIPTIONS? YES . IF YES, PLEASE LIST: ____TIZANIDINE . ANY NEW PROBLEMS WITH YOUR MEDICATIONS? NO . WHEN DID YOU LAST EAT? ____ . WHEN DID YOU LAST DRINK? ____ . WHAT DID YOU LAST DRINK? ____ . NAME OF PERSON DRIVING YOU HOME? ____ . DO YOU HAVE ANY OTHER QUESTIONS OR CONCERNS NO . EXAMINATION GENERAL EXAMINATION: PSYCHAPPROPRIATE MOOD AND AFFECT , ORIENTED X 3. ASSESSMENTS INTERVERTEBRAL DISC DISORDERS WITH RADICULOPATHY, LUMBAR REGION - M51.16 (PRIMARY) TREATMENT INTERVERTEBRAL DISC DISORDERS WITH RADICULOPATHY, LUMBAR REGION REFILL TIZANIDINE HCL TABLET, 4 MG, 1 TABLET NEEDED, ORALLY, AT BEDTIME, 30 DAYS, 30 START MELOXICAM TABLET, 15 MG, 1 TABLET, ORALLY, ONCE A DAY, 30 DAY(S), 30 CLINICAL NOTES: 64-YEAR-OLD MALE IN FOR CHRONIC PAIN FOLLOW-UP. GIVEN HIS REACTION TO DICLOFENAC DISCUSSED STARTING MELOXICAM WITH PATIENT AND HE WAS AMENABLE TO THIS. INFORMED PATIENT SHOULD HE DEVELOP SIMILAR SIDE EFFECTS TO THAT OF THE DICLOFENAC THAT HE IS TO STOP MEDICATION AND CALL THE OFFICE. FURTHER RECOMMENDED FOLLOW-UP IN CLINIC IN 2 MONTHS. PATIENT HAS EXPRESSED UNDERSTANDING OF AND WAS IN AGREEMENT WITH TREATMENT PLAN. GIVEN TIME TO ASK QUESTIONS AND EXPRESS CONCERNS. OTHERS NOTES: NO VITAL SIGNS TAKEN, THIS IS A PHONE VISIT. PROCEDURES PN WORKMANS' COMP OPINION IN YOUR OPINION, WAS THE INCIDENT THAT THE PATIENT DESCRIBED THE COMPETENT MEDICAL CAUSE OF THIS INJURY/ILLNESS? YES ARE THE PATIENT'S COMPLAINTS CONSISTENT WITH HIS/HER HISTORY OF THE INJURY/ILLNESS? YES IS THE PATIENT'S HISTORY OF THE INJURY/ILLNESS CONSISTENT WITH YOUR OBJECTIVE FINDING? YES WHAT IS THE PERCENTAGE OF TEMPORARY IMPAIRMENT? MODERATE TO MARKED = 66.7% IS THE PATIENT WORKING? NO DOCTOR ON SITE: DELMER BENAVIDES MD DISPOSITION & COMMUNICATION FOLLOW UP 2 MONTHS (REASON: BACK PAIN, WORKER'S COMP.) ELECTRONICALLY SIGNED BY LETICIA STAFFORD ON 11/03/2019 AT 08:20 AM EDT DISCLAIMER : THIS IS A VISIT SUMMARY EXTRACTED FROM THE [employer] CHART. IT IS NOT A COPY OF THE [employer] PROGRESS NOTE. ANA ROSA
== END ==
LOC: M PAIN 09:00
PROVIDERS: ATTEND Family Medicine
DX: M51.16 Intervertebral disc disorders with radiculopathy, lumbar region (principal); I10 Essential (primary) hypertension; Z79.82 Long term (current) use of aspirin; Z79.899 Other long term (current) drug therapy; Z88.8 Allergy status to other drugs, medicaments and biological substances; Z87.891 Personal history of nicotine dependence

== ENCOUNTER → 2019-12-02 | Outpatient (CLI) | payer OTHER, BC ==
--- NOTE | 2019-12-04 07:02 | REP ---
Clinical: Acute ankle pain. Technique: AP, lateral, bilateral oblique views of the left foot. Findings: Generalized age-related changes are appreciated. No acute fracture or dislocation. Old injury at the base of the fourth metatarsal metaphysis cannot be excluded. No overt osteoarthritic changes are identified. No subcutaneous emphysema or foreign body. Impression: Generalized age-related changes. No acute fracture or dislocation. Electronically Signed by Jaiden Kwong MD 12/04/2019 06:54 A
--- NOTE | 2019-12-04 07:03 | REP ---
Clinical: Pain. Technique: AP, lateral, bilateral oblique views of the left ankle. Findings: Generalized soft tissue swelling suggests underlying sprain. Subtle irregularities at the medial malleolus may represent old avulsion fracture and less likely acute injury. The ankle mortise is intact. Impression: Soft-tissue swelling. Presumed old avulsion injury at the medial malleolus less likely representing superimposed acute injury. Electronically Signed by Jaiden Kwong MD 12/04/2019 06:56 A
== END ==
LOC: M ADAMS 15:03
PROVIDERS: ATTEND Physician Assistant
DX: M25.572 Pain in left ankle and joints of left foot (principal)

== ENCOUNTER → 2020-07-08 | Outpatient (REF) | payer BC ==
[~2020-07-08] MED LIST changes: +AMLO1TAB24 PO; -AMLO5TAB6 PO; -ASPI81TA85 PO; +ASPI81TA86 PO; +GABA-282 PO; -GABA-843 PO
[2020-07-08 13:02] LABS: HEMATOCRIT 47.7 % (42.0-52.0); HEMOGLOBIN 15.9 g/dl (13.5-17.5); MEAN CORPUSCULAR HEMOGLOBIN 30.2 pg (27.0-33.0); MEAN CORPUSCULAR HGB CONC 33.3 g/dl (32.0-36.5); MEAN CORPUSCULAR VOLUME 90.5 fl (80.0-96.0); PLATELET COUNT, AUTOMATED 186 10^3/uL (150-450); RED BLOOD COUNT 5.27 10^6/uL (4.30-6.10); WHITE BLOOD COUNT 8.4 10^3/uL (4.0-10.0)
[2020-07-08 13:34] LABS: ALBUMIN 3.8 GM/DL (3.2-5.2); ALT/SGPT 25 U/L (12-78); BLOOD UREA NITROGEN 21 MG/DL (7-18); CALCIUM LEVEL 9.7 MG/DL (8.8-10.2); CARBON DIOXIDE LEVEL 32 MEQ/L (21-32); CHLORIDE LEVEL 106 MEQ/L (98-107); CREATININE FOR GFR 1.01 MG/DL (0.70-1.30); GLOMERULAR FILTRATION RATE > 60.0 (>49); GLUCOSE, FASTING 100 MG/DL (70-100); POTASSIUM SERUM 4.5 MEQ/L (3.5-5.1); SODIUM LEVEL 140 MEQ/L (136-145); TOTAL PROTEIN 7.1 GM/DL (6.4-8.2)
[2020-07-08 14:22] LABS: HEMOGLOBIN A1c 5.5 %
== END ==
LOC: M SFHCADAM 09:36
PROVIDERS: ATTEND Physician Assistant
DX: R73.01 Impaired fasting glucose (principal); I10 Essential (primary) hypertension

== ENCOUNTER → 2021-01-26 | Outpatient (REF) | payer OTHER ==
[~2021-01-26] MED LIST changes: +OMEP40CA4 PO; -OMEP40CA97 PO
[2021-01-26 13:34] LABS: CREATININE, URINE 16.7 MG/DL; MALB URINE SIEMENS < 5.0 MG/L; MAU/CREAT RATIO 29.9 MCG/MG (0.0-30.0)
[2021-01-26 13:48] LABS: ALBUMIN 3.7 GM/DL (3.2-5.2); ALT/SGPT 33 U/L (12-78); BILIRUBIN,TOTAL 0.6 MG/DL (0.2-1.0); BLOOD UREA NITROGEN 18 MG/DL (7-18); CALCIUM LEVEL 9.2 MG/DL (8.8-10.2); CARBON DIOXIDE LEVEL 29 MEQ/L (21-32); CHLORIDE LEVEL 105 MEQ/L (98-107); CHOLESTEROL LEVEL 169 MG/DL (<200); CHOLESTEROL RISK RATIO 2.112 (<5); FOLATE 11.7 NG/ML; GLOMERULAR FILTRATION RATE > 60.0 (>49); GLUCOSE, FASTING 96 MG/DL (70-100); HDL CHOLESTEROL 80 MG/DL (>40); LDL CHOLESTEROL 57 MG/DL (<100); NON-HDL-C 89 MG/DL; SODIUM LEVEL 141 MEQ/L (136-145); TOTAL 25(OH) VITAMIN D 27.4 NG/ML (30.0-100.0); TOTAL PROTEIN 6.8 GM/DL (6.4-8.2); TRIGLYCERIDES LEVEL 162 MG/DL (<150); VITAMIN B12 LEVEL 431 PG/ML
== END ==
LOC: M SFHCADAM 09:28
PROVIDERS: ATTEND Physician Assistant
DX: E78.49 Other hyperlipidemia (principal); I10 Essential (primary) hypertension; K21.9 Gastro-esophageal reflux disease without esophagitis; M51.17 Intervertebral disc disorders with radiculopathy, lumbosacral region; Z12.5 Encounter for screening for malignant neoplasm of prostate
CPT/HCPCS: 80053; 80061; 82043; 82306; 82607; 82746; G0103

== ENCOUNTER → 2021-05-03 | Outpatient (CLI) | payer BC ==
--- NOTE | 2021-05-03 12:33 | REP ---
INDICATION: SMOKER. COMPARISON: Lung base images of 09/29/[address] TECHNIQUE: Axial noncontrast images from the thoracic inlet to the upper abdomen using low-dose lung screening technique (LDCT). As per the protocol only lung window images were sent to the read station for interpretation FINDINGS: There is a 3 mm size nodule in the inferior right upper lobe. There is a 6 mm sized ground-glass nodule in the left lower lobe. There are no other abnormal nodules, masses, or opacities. Grossly, the mediastinum and pulmonary lyudmila are within normal limits. Grossly, the imaged upper abdomen and imaged osseous structures are within normal limits. IMPRESSION: Two lung nodules as described above. According to the revised Fleischner society criteria lung rads category 3 exam for which a six-month follow-up CT of the chest is recommended. <Electronically signed by Fredy Connor > 05/03/21 0060
== END ==
LOC: M RAD 12:04
PROVIDERS: ATTEND Physician Assistant
DX: F17.218 Nicotine dependence, cigarettes, with other nicotine-induced disorders (principal); R91.8 Other nonspecific abnormal finding of lung field

== ENCOUNTER → 2021-08-02 | Outpatient (REF) | payer OTHER ==
[~2021-08-02] MED LIST changes: +LOSA25TA13 PO; -LOSA25TA14 PO; +LOSA50TA28 PO; -LOSA50TA88 PO; +OMEP-173 PO; -OMEP-218 PO; +TIZA10TA PO; -TIZA4TAB4 PO
[2021-08-02 17:15] LABS: ALBUMIN 3.9 GM/DL (3.2-5.2); ALT/SGPT 26 U/L (12-78); BILIRUBIN,TOTAL 0.5 MG/DL (0.2-1.0); BLOOD UREA NITROGEN 18 MG/DL (7-18); CALCIUM LEVEL 9.2 MG/DL (8.8-10.2); CARBON DIOXIDE LEVEL 29 MEQ/L (21-32); CHLORIDE LEVEL 105 MEQ/L (98-107); CREATININE FOR GFR 0.88 MG/DL (0.70-1.30); GLOMERULAR FILTRATION RATE > 60.0 (>49); GLUCOSE, FASTING 98 MG/DL (70-100); POTASSIUM SERUM 3.9 MEQ/L (3.5-5.1); SODIUM LEVEL 139 MEQ/L (136-145); TOTAL PROTEIN 7.1 GM/DL (6.4-8.2)
[2021-08-02 17:19] LABS: HEMOGLOBIN A1c 5.7 %
== END ==
LOC: M SFHCADAM 13:57
PROVIDERS: ATTEND Physician Assistant
DX: F10.10 Alcohol abuse, uncomplicated (principal); I10 Essential (primary) hypertension; R73.01 Impaired fasting glucose

== ENCOUNTER → 2021-09-09 | Outpatient (CLI) | payer OTHER, BC ==
[~2021-09-09] MED LIST changes: +GASTROGRAFIN SOLUTION 30ML (Q9963) As Ordered ONE; +ISOVUE-370 76% 100ML VIAL As Ordered ONE
== END ==
LOC: M RAD 14:12
PROVIDERS: ATTEND Physician Assistant
DX: K57.32 Diverticulitis of large intestine without perforation or abscess without bleeding (principal)
CPT/HCPCS: 74178; Q9963; Q9967

== ENCOUNTER → 2021-10-28 | Outpatient (CLI) | payer BC ==
[~2021-10-28] MED LIST changes: -GASTROGRAFIN SOLUTION 30ML (Q9963) As Ordered ONE; -ISOVUE-370 76% 100ML VIAL As Ordered ONE
== END ==
LOC: M PLAIMG 10:25
PROVIDERS: ATTEND Physician Assistant
DX: R05.9 Cough, unspecified (principal)

== ENCOUNTER → 2021-11-09 | Outpatient (CLI) | payer BC ==
[2021-11-09 17:09] LABS: BLOOD UREA NITROGEN 19 MG/DL (7-18); CREATININE FOR GFR 0.84 MG/DL (0.70-1.30); GLOMERULAR FILTRATION RATE > 60.0 (>49)
== END ==
LOC: M ADAMS 10:47
PROVIDERS: ATTEND Nurse Practitioner Adult Health
DX: G47.31 Primary central sleep apnea (principal)

== ENCOUNTER → 2021-11-28 | Outpatient (CLI) | payer BC ==
[~2021-11-28] MED LIST changes: +ISOVUE-370 76% 100ML VIAL ONE
== END ==
LOC: M PLAIMG 12:30
PROVIDERS: ATTEND Nurse Practitioner Adult Health
DX: R91.8 Other nonspecific abnormal finding of lung field (principal)
CPT/HCPCS: 71260; Q9967

== ENCOUNTER → 2022-05-26 | Outpatient (CLI) | payer BC, MEDICARE ==
[~2022-05-26] MED LIST changes: -ISOVUE-370 76% 100ML VIAL ONE
== END ==
LOC: M PLARAD 13:45
PROVIDERS: ATTEND Orthopaedic Surgery
DX: M51.36 Other intervertebral disc degeneration, lumbar region (principal); M51.26 Other intervertebral disc displacement, lumbar region; M99.63 Osseous and subluxation stenosis of intervertebral foramina of lumbar region; M43.06 Spondylolysis, lumbar region

== ENCOUNTER → 2022-11-30 | Outpatient (CLI) | payer MEDICARE | LOC: M RAD 09:36 | PROVIDERS: ATTEND Nurse Practitioner Adult Health | DX: R91.8 Other nonspecific abnormal finding of lung field (principal) ==

== ENCOUNTER → 2022-12-28 | Outpatient (REF) | payer MEDICARE, OTHER ==
[~2022-12-28] MED LIST changes: +FINA-48 PO; -PROS5TAB PO
== END ==
LOC: M LAB REF 12:05
PROVIDERS: ATTEND Internal Medicine Pulmonary Disease
DX: J47.1 Bronchiectasis with (acute) exacerbation (principal)

== ENCOUNTER → 2023-02-28 | Outpatient (REF) | payer OTHER ==
[~2023-02-28] MED LIST changes: -COZA1TAB PO; +LOSA-527 PO
== END ==
LOC: M SFHCADAM 15:25
PROVIDERS: ATTEND Physician Assistant
DX: Z12.11 Encounter for screening for malignant neoplasm of colon (principal); Z12.5 Encounter for screening for malignant neoplasm of prostate

== ENCOUNTER 2023-07-09 07:55 | Day surgery (SDC) | payer OTHER ==
[~2023-07-09] VITALS: Ht 175.3 cm; Wt 109.8 kg
[~2023-07-09 07:55] MED LIST changes: +ASPI81TA26 PO; +NS 1,000 ML IV ONE
[2023-07-09] MEDS ORDERED: LIDOCAINE 2% 100MG/5ML SDV (FOR ANES.) As Ordered ONE (09:43)
[2023-07-09] MEDS ORDERED: propofoL 200 MG/20 ML VIAL As Ordered ONE ×2 (09:43→09:52)
[2023-07-09 10:16] VITALS: TEMP 97.2
[2023-07-09 10:41] VITALS: BP 162/94; O2SAT 95
== END 2023-07-09 10:49 | disposition home or self-care (01) ==
LOC: M OPP 07:55
PROVIDERS: ATTEND Internal Medicine Gastroenterology
DX: D12.6 Benign neoplasm of colon, unspecified (principal); K64.4 Residual hemorrhoidal skin tags; K64.8 Other hemorrhoids; K57.30 Diverticulosis of large intestine without perforation or abscess without bleeding; R19.5 Other fecal abnormalities; Z87.891 Personal history of nicotine dependence; G57.30 Lesion of lateral popliteal nerve, unspecified lower limb; Z99.89 Dependence on other enabling machines and devices; Z79.02 Long term (current) use of antithrombotics/antiplatelets; Z79.82 Long term (current) use of aspirin; Z79.891 Long term (current) use of opiate analgesic; Z79.899 Other long term (current) drug therapy; Z88.8 Allergy status to other drugs, medicaments and biological substances

== ENCOUNTER → 2023-09-05 | Outpatient (REF) | payer OTHER ==
[~2023-09-05] MED LIST changes: -NS 1,000 ML IV ONE
[2023-09-05 13:50] LABS: BASO % 0.5 % (0.0-1.0); EOS # 0.1 10^3/uL (0.0-0.5); HEMATOCRIT 42.6 % (42.0-52.0); HEMOGLOBIN 14.5 g/dl (13.5-17.5); LYMPH # 1.8 10^3/uL (1.5-5.0); LYMPH % 29.3 % (24.0-44.0); MEAN CORPUSCULAR HEMOGLOBIN 30.6 pg (27.0-33.0); MEAN CORPUSCULAR VOLUME 89.9 fl (80.0-96.0); MONO # 0.5 10^3/uL (0.0-0.8); MONO % 8.2 % (2.0-8.0); NEUTROPHILS # 3.6 10^3/uL (1.5-8.5); NEUTROPHILS % 60.3 % (36.0-66.0); PLATELET COUNT, AUTOMATED 173 10^3/uL (150-450); RED BLOOD COUNT 4.74 10^6/uL (4.30-6.10)
[2023-09-05 14:07] LABS: HEMOGLOBIN A1c 5.7 % (4.0-6.0)
[2023-09-05 14:17] LABS: PSA SCREENING 0.38 NG/ML (< 4.00)
[2023-09-05 14:21] LABS: ALBUMIN 3.7 G/DL (3.2-5.2); ALKALINE PHOSPHATASE 86 U/L (46-116); ALT/SGPT 28 U/L (7.0-40); AST/SGOT 18 U/L (<34); BILIRUBIN,TOTAL 0.7 MG/DL (0.3-1.2); BLOOD UREA NITROGEN 20 MG/DL (9-23); CALCIUM LEVEL 9.5 MG/DL (8.3-10.6); CARBON DIOXIDE LEVEL 29 MMOL/L (20-31); CHLORIDE LEVEL 104 MMOL/L (98-107); CHOLESTEROL LEVEL 183 MG/DL (<200); CHOLESTEROL RISK RATIO 2.75 (<5); CREATININE FOR GFR 1.01 MG/DL (0.70-1.30); GLOMERULAR FILTRATION RATE > 60.0 (>49); GLUCOSE, FASTING 107 MG/DL (74-106); HDL CHOLESTEROL 66.4 MG/DL (>40); LDL CHOLESTEROL 52.8 MG/DL (<100); NON-HDL-C 116.6 MG/DL; POTASSIUM SERUM 4.4 MMOL/L (3.5-5.1); SODIUM LEVEL 140 MMOL/L (136-145); TOTAL PROTEIN 6.6 G/DL (5.7-8.2); TRIGLYCERIDES LEVEL 319 MG/DL (<150)
[2023-09-05 14:22] LABS: THYROID STIMULATING HORMONE 1.215 uIU/ML (0.55-4.78)
[2023-09-05 14:24] LABS: FREE T4 1.12 NG/DL (0.89-1.76)
== END ==
LOC: M SFHCADAM 08:20
PROVIDERS: ATTEND Physician Assistant
DX: Z00.00 Encounter for general adult medical examination without abnormal findings (principal); I10 Essential (primary) hypertension; E78.2 Mixed hyperlipidemia; Z12.5 Encounter for screening for malignant neoplasm of prostate; Z13.1 Encounter for screening for diabetes mellitus; E66.01 Morbid (severe) obesity due to excess calories; Z68.37 Body mass index [BMI] 37.0-37.9, adult; Z79.899 Other long term (current) drug therapy
CPT/HCPCS: 80053; 80061; 83036; 84439; 84443; 85025; G0103

== ENCOUNTER → 2024-01-14 | Outpatient (CLI) | payer OTHER | LOC: M RAD 07:44 | PROVIDERS: ATTEND Nurse Practitioner Adult Health | DX: Z12.2 Encounter for screening for malignant neoplasm of respiratory organs (principal); F17.218 Nicotine dependence, cigarettes, with other nicotine-induced disorders ==

== ENCOUNTER 2024-03-28 06:13 | Emergency (ER) | payer OTHER ==
[~2024-03-28] VITALS: Ht 175.3 cm; Wt 109.0 kg
[~2024-03-28 06:13] MED LIST changes: +GABA-1172 PO; -GABA-282 PO
[2024-03-28] MEDS: FAMOTIDINE 20 MG TAB PO ONE (07:05)
[2024-03-28] MEDS: methylPREDNISolone 125MG 2ML VIAL IM ONE (07:06)
[2024-03-28] MEDS ORDERED: PRED20TA PO (10:28)
[2024-03-28] MEDS ORDERED: BENA25CA4 PO (10:28)
[2024-03-28 10:47] VITALS: BP 163/89; TEMP 97.3; O2SAT 97
== END 2024-03-28 10:51 | disposition home or self-care (01) ==
LOC: M ED 06:13
DX: T78.40XA Allergy, unspecified, initial encounter (principal); I10 Essential (primary) hypertension; E78.5 Hyperlipidemia, unspecified; F17.200 Nicotine dependence, unspecified, uncomplicated; Z79.82 Long term (current) use of aspirin; Z79.899 Other long term (current) drug therapy; Z88.8 Allergy status to other drugs, medicaments and biological substances
CPT/HCPCS: 99284; J2919

== ENCOUNTER 2024-03-31 04:05 | Emergency (ER) | payer OTHER ==
[~2024-03-31] VITALS: Ht 175.3 cm; Wt 109.9 kg
[~2024-03-31 04:05] MED LIST changes: +BENA25CA4 PO; +PRED20TA PO
[2024-03-31 04:43] LABS: BASO % 0.2 % (0.0-1.0); EOS # 0.4 10^3/uL (0.0-0.5); EOS % 2.7 % (0.0-3.0); HEMATOCRIT 47.9 % (42.0-52.0); HEMOGLOBIN 16.7 g/dl (13.5-17.5); LYMPH # 1.2 10^3/uL (1.5-5.0); MEAN CORPUSCULAR HEMOGLOBIN 31.6 pg (27.0-33.0); MEAN CORPUSCULAR HGB CONC 34.9 g/dl (32.0-36.5); MEAN CORPUSCULAR VOLUME 90.5 fl (80.0-96.0); MONO # 0.8 10^3/uL (0.0-0.8); MONO % 5.5 % (2.0-8.0); NEUTROPHILS # 11.3 10^3/uL (1.5-8.5); NEUTROPHILS % 81.9 % (36.0-66.0); PLATELET COUNT, AUTOMATED 190 10^3/uL (150-450); RED BLOOD COUNT 5.29 10^6/uL (4.30-6.10); WHITE BLOOD COUNT 13.9 10^3/uL (4.0-10.0)
[2024-03-31 04:52] LABS: ERYTHROCYTE SEDIMENTATION RATE 28 mm/hr (0-20)
[2024-03-31 05:13] LABS: BLOOD UREA NITROGEN 20 MG/DL (9-23); CALCIUM LEVEL 9.7 MG/DL (8.3-10.6); CARBON DIOXIDE LEVEL 27 MMOL/L (20-31); CHLORIDE LEVEL 107 MMOL/L (98-107); GLOMERULAR FILTRATION RATE > 60.0 (>49); GLUCOSE, FASTING 133 MG/DL (74-106); POTASSIUM SERUM 4.2 MMOL/L (3.5-5.1); SODIUM LEVEL 139 MMOL/L (136-145)
[2024-03-31 11:36] LABS: AMYLASE 34 U/L (30-118)
[2024-03-31 11:37] LABS: ALBUMIN 3.4 G/DL (3.2-5.2); ALKALINE PHOSPHATASE 133 U/L (46-116); ALT/SGPT 37 U/L (7.0-40); AST/SGOT < 8 U/L (<34); BILIRUBIN,DIRECT < 0.1 MG/DL (<0.4); BILIRUBIN,TOTAL 0.6 MG/DL (0.3-1.2); TOTAL PROTEIN 6.8 G/DL (5.7-8.2)
[2024-03-31 11:53] LABS: ABG BASE EXCESS 2.4 (-2.0-2.0); ABG HCO3 25.4 MMOL/L (22.0-26.0); ABG O2 SATURATION 94.9 % (95.0-99.0); ABG PARTIAL PRESSURE CO2 35.1 mmHg (35.0-45.0); ABG PARTIAL PRESSURE O2 69.4 mmHg (75.0-100.0); ABG STANDARD HCO3 26.5 MMOL/L. (22.0-26.0); ABG TOTAL CO2 26.5 MMOL/L (23.0-31.0); ABG pH (ARTERIAL) 7.478 UNITS (7.350-7.450)
[2024-03-31 11:57] LABS: PARTIAL THROMBOPLASTIN TIME 22.4 SECONDS (24.8-34.2); PROTHROMBIN TIME 12.9 SECONDS (12.5-14.5)
[2024-03-31] MEDS: AMPICILLIN SOD/SULBACTAM SOD 3 GM in D5W MINI-BAG PLUS 100 ML IV ONE (12:34)
[2024-03-31] MEDS: MORPHINE 4 MG/ML 1ML VIAL IV ONE (12:35)
[2024-03-31] MEDS: methylPREDNISolone 125MG 2ML VIAL IV ONE (12:35)
[2024-03-31] MEDS: ONDANSETRON 4MG 2ML VIAL IV ONE (12:36)
[2024-03-31] MEDS: cefTRIAXone SOD 2 GM in D5W MINI-BAG PLUS 50 ML IV ONE (12:36)
[2024-03-31] MEDS ORDERED: ACETAMINOPHEN 325 MG TAB PO ONE (13:05)
[2024-03-31] MEDS: NS IV STA (13:30)
[2024-03-31] MEDS: ACETAMINOPHEN 325 MG TAB PO ONE (13:30)
[2024-03-31] MEDS: DOXYCYCLINE HYCLATE 100 MG in D5W MINI-BAG PLUS 100 ML IV ONE (14:00)
[2024-03-31] MEDS: valACYclovir HCL 500 MG TAB PO ONE (14:00)
[2024-03-31 15:56] LABS: HIV 1&2 SCREEN NEGATIVE (NEGATIVE)
[2024-03-31] MEDS: valACYclovir HCL 500 MG TAB PO SCH (17:34)
[2024-03-31 18:44] VITALS: BP 136/72; TEMP 98; O2SAT 97
[2024-04-01] MEDS ORDERED: DOXYCYCLINE HYCLATE 100 MG in D5W MINI-BAG PLUS 100 ML IV SCH (02:00)
[2024-04-01] MEDS ORDERED: predniSONE 20 MG TAB PO SCH (09:00)
[2024-04-01] MEDS ORDERED: cefTRIAXone SOD 2 GM in D5W MINI-BAG PLUS 50 ML IV SCH (12:00)
[2024-04-01] MEDS ORDERED: cefTRIAXone SOD 2GM VIAL IM SCH (16:25)
[2024-04-02 03:18] LABS: IgG P18 AB NON-REACTIVE; IgG P23 AB NON-REACTIVE; IgG P28 AB NON-REACTIVE; IgG P30 AB NON-REACTIVE; IgG P39 AB NON-REACTIVE; IgG P41 AB NON-REACTIVE; IgG P45 AB NON-REACTIVE; IgG P58 AB NON-REACTIVE; IgG P66 AB NON-REACTIVE; IgG P93 AB REACTIVE; IgM P23 AB NON-REACTIVE; IgM P39 AB NON-REACTIVE; IgM P41 AB NON-REACTIVE; LYME IgG WB INTERPRETATION NEGATIVE (NEGATIVE); LYME IgM WB INTERPRETATION NEGATIVE (NEGATIVE)
[2024-04-03 00:33] LABS: ROCKY MTN SPOTTED FEVER IGM Not Detected (Not Detected)
== END 2024-03-31 18:48 | disposition short-term general hospital (02) ==
LOC: M ED 04:05
DX: R50.9 Fever, unspecified (principal); I10 Essential (primary) hypertension; K21.9 Gastro-esophageal reflux disease without esophagitis; Z79.82 Long term (current) use of aspirin; Z79.899 Other long term (current) drug therapy; Z88.8 Allergy status to other drugs, medicaments and biological substances
CPT/HCPCS: 36600; 71045; 80048; 80076; 82150; 82803; 83605; 84145; 85025; 85610; 85652; 85730; 86140; 86617; 86757; 86780; 86850; 86900; 86901; 87040; 87070; 87077; 87186; 87205; 87252; 87389; 87471; 87799; 93005; 93041; 94760; 96374; 96375; 99285; J0295; J0696; J2405; J2919

== ENCOUNTER 2024-04-17 08:07 | Emergency (ER) | payer OTHER ==
[~2024-04-17] VITALS: Ht 175.3 cm; Wt 108.7 kg
[2024-04-17] MEDS ORDERED: FURO40TA2 (08:17)
[2024-04-17] MEDS ORDERED: SYMB16INH (08:17)
[2024-04-17 11:58] LABS: BASO % 0.2 % (0.0-1.0); EOS # 9.8 10^3/uL (0.0-0.5); HEMATOCRIT 43.5 % (42.0-52.0); HEMOGLOBIN 14.6 g/dl (13.5-17.5); LYMPH # 2.2 10^3/uL (1.5-5.0); LYMPH % 10.6 % (24.0-44.0); MEAN CORPUSCULAR HEMOGLOBIN 30.4 pg (27.0-33.0); MEAN CORPUSCULAR HGB CONC 33.6 g/dl (32.0-36.5); MEAN CORPUSCULAR VOLUME 90.4 fl (80.0-96.0); MONO # 0.7 10^3/uL (0.0-0.8); MONO % 3.2 % (2.0-8.0); NEUTROPHILS # 8.1 10^3/uL (1.5-8.5); NEUTROPHILS % 38.7 % (36.0-66.0); PLATELET COUNT, AUTOMATED 403 10^3/uL (150-450); RED BLOOD COUNT 4.81 10^6/uL (4.30-6.10)
[2024-04-17 12:11] LABS: INR 0.92; PARTIAL THROMBOPLASTIN TIME 23.1 SECONDS (24.8-34.2); PROTHROMBIN TIME 12.6 SECONDS (12.5-14.5)
[2024-04-17] MEDS: GABAPENTIN 300 MG CAP PO ONE (12:11)
[2024-04-17 12:13] LABS: BLOOD UREA NITROGEN 19 MG/DL (9-23); CALCIUM LEVEL 9.4 MG/DL (8.3-10.6); CARBON DIOXIDE LEVEL 28 MMOL/L (20-31); CHLORIDE LEVEL 105 MMOL/L (98-107); CREATININE FOR GFR 0.62 MG/DL (0.70-1.30); GLOMERULAR FILTRATION RATE > 60.0 (>49); GLUCOSE, FASTING 95 MG/DL (74-106); POTASSIUM SERUM 4.4 MMOL/L (3.5-5.1); SODIUM LEVEL 136 MMOL/L (136-145)
[2024-04-17 12:37] LABS: EOS % 46.6 % (0.0-3.0)
[2024-04-17 13:26] LABS: PROCALCITONIN 0.24 ng/ml
[2024-04-17] MEDS: KETOROLAC 30 MG/ML 1ML VIAL IV ONE (13:52)
[2024-04-17 14:41] LABS: URIC ACID 4.4 MG/DL (3.7-9.2)
[2024-04-17] MEDS: MORPHINE 2 MG/ML 1ML VIAL IV ONE (15:22)
[2024-04-17] MEDS ORDERED: diphenhydrAMINE 25MG CAP PO PRN (15:30)
[2024-04-17] MEDS ORDERED: tiZANidine 4 MG TAB PO PRN (15:30)
[2024-04-17] MEDS ORDERED: NALOXONE INJ 0.4MG/1ML VIAL IV PRN (15:45)
[2024-04-17] MEDS ORDERED: PERCOCET 5MG/325MG TAB PO PRN (15:45)
[2024-04-17 17:13] VITALS: BP 155/80
[2024-04-17] MEDS: amLODIPine 5 MG TAB PO ONE (17:13)
[2024-04-17] MEDS: PERCOCET 5MG/325MG TAB PO ONE (17:13)
[2024-04-17] MEDS: diphenhydrAMINE 25MG CAP PO ONE (17:13)
[2024-04-17 17:16] VITALS: BP 155/80; TEMP 97.6; O2SAT 99
[2024-04-17] MEDS ORDERED: SYMBICORT 160/4.5MCG INHALER 6GM INH SCH (20:00)
[2024-04-17] MEDS ORDERED: ROSUVASTATIN 10 MG TAB (CRESTOR) PO SCH (21:00)
[2024-04-18] MEDS ORDERED: LOSARTAN 25 MG TAB PO SCH (09:00)
[2024-04-18] MEDS ORDERED: amLODIPine 5 MG TAB PO SCH (09:00)
[2024-04-18] MEDS ORDERED: FUROSEMIDE 40 MG TAB PO SCH (09:00)
[2024-04-18] MEDS ORDERED: ASPIRIN 81MG CHEW TABLET PO SCH (09:00)
[2024-04-18] MEDS ORDERED: OMEPRAZOLE 20MG CAP PO SCH (09:00)
== END 2024-04-17 17:20 | disposition short-term general hospital (02) ==
LOC: M ED 08:07
DX: D72.829 Elevated white blood cell count, unspecified (principal); D72.10 Eosinophilia, unspecified; I10 Essential (primary) hypertension; G47.33 Obstructive sleep apnea (adult) (pediatric); Z79.82 Long term (current) use of aspirin; Z79.899 Other long term (current) drug therapy; Z88.8 Allergy status to other drugs, medicaments and biological substances
CPT/HCPCS: 71045; 80048; 83605; 84145; 84550; 85025; 85610; 85730; 87040; 93970; 94760; 96374; 96375; 99284; J1885

== ENCOUNTER → 2024-04-23 | Outpatient (REF) | payer OTHER ==
[~2024-04-23] MED LIST changes: +FURO40TA2; +SYMB16INH
[2024-04-23 18:44] LABS: BASO % 0.3 % (0.0-1.0); EOS # 5.8 10^3/uL (0.0-0.5); HEMATOCRIT 43.2 % (42.0-52.0); HEMOGLOBIN 14.1 g/dl (13.5-17.5); LYMPH # 2.1 10^3/uL (1.5-5.0); LYMPH % 14.8 % (24.0-44.0); MEAN CORPUSCULAR HEMOGLOBIN 30.5 pg (27.0-33.0); MEAN CORPUSCULAR HGB CONC 32.6 g/dl (32.0-36.5); MEAN CORPUSCULAR VOLUME 93.3 fl (80.0-96.0); MONO # 0.9 10^3/uL (0.0-0.8); MONO % 6.2 % (2.0-8.0); NEUTROPHILS # 5.3 10^3/uL (1.5-8.5); NEUTROPHILS % 37.4 % (36.0-66.0); PLATELET COUNT, AUTOMATED 354 10^3/uL (150-450); RED BLOOD COUNT 4.63 10^6/uL (4.30-6.10); WHITE BLOOD COUNT 14.1 10^3/uL (4.0-10.0)
[2024-04-23 18:58] LABS: HEMOGLOBIN A1c 5.8 % (4.0-6.0)
[2024-04-23 19:15] LABS: ALKALINE PHOSPHATASE 123 U/L (40-129); ALT/SGPT 33 U/L (7.0-40); AST/SGOT 26 U/L (<34); BILIRUBIN,TOTAL 0.3 MG/DL (0.3-1.2); BLOOD UREA NITROGEN 19 MG/DL (9-23); CALCIUM LEVEL 9.7 MG/DL (8.3-10.6); CARBON DIOXIDE LEVEL 29 MMOL/L (20-31); CHLORIDE LEVEL 102 MMOL/L (98-107); CREATININE FOR GFR 0.96 MG/DL (0.70-1.30); GLOMERULAR FILTRATION RATE > 60.0 (>49); GLUCOSE, FASTING 115 MG/DL (74-106); POTASSIUM SERUM 4.1 MMOL/L (3.5-5.1); SODIUM LEVEL 138 MMOL/L (136-145); TOTAL PROTEIN 6.6 G/DL (5.7-8.2)
[2024-04-23 19:23] LABS: EOS % 41.1 % (0.0-3.0)
[2024-04-23 19:25] LABS: RHEUMATOID FACTOR QUANT 25.6 IU/ML (<14)
[2024-04-23 19:27] LABS: ERYTHROCYTE SEDIMENTATION RATE 46 mm/hr (0-20)
[2024-04-25 16:27] LABS: ANA SCREEN, IFA NEGATIVE (NEGATIVE)
[2024-04-26 03:03] LABS: CYCLIC CITRULLINATED PEPTIDE < 16 UNITS (<20)
== END ==
LOC: M SFHCADAM 14:11
PROVIDERS: ATTEND Physician Assistant
DX: L13.9 Bullous disorder, unspecified (principal); Z79.899 Other long term (current) drug therapy

== ENCOUNTER → 2024-05-20 | Outpatient (REF) | payer OTHER ==
[2024-05-20 17:49] LABS: BASO % 0.4 % (0.0-1.0); EOS # 1.6 10^3/uL (0.0-0.5); HEMATOCRIT 44.3 % (42.0-52.0); HEMOGLOBIN 14.4 g/dl (13.5-17.5); LYMPH # 2.1 10^3/uL (1.5-5.0); LYMPH % 21.6 % (24.0-44.0); MEAN CORPUSCULAR HGB CONC 32.5 g/dl (32.0-36.5); MEAN CORPUSCULAR VOLUME 92.3 fl (80.0-96.0); MONO # 0.8 10^3/uL (0.0-0.8); MONO % 7.9 % (2.0-8.0); NEUTROPHILS # 5.3 10^3/uL (1.5-8.5); NEUTROPHILS % 53.7 % (36.0-66.0); PLATELET COUNT, AUTOMATED 255 10^3/uL (150-450); WHITE BLOOD COUNT 9.9 10^3/uL (4.0-10.0)
[2024-05-20 18:17] LABS: C REACTIVE PROTEIN QUANTITATIV 0.51 MG/DL (<1.0)
[2024-05-20 18:19] LABS: ALBUMIN 3.4 G/DL (3.2-5.2); ALKALINE PHOSPHATASE 98 U/L (40-129); ALT/SGPT 19 U/L (7.0-40); AST/SGOT 12 U/L (<34); BILIRUBIN,TOTAL 0.4 MG/DL (0.3-1.2); BLOOD UREA NITROGEN 17 MG/DL (9-23); CALCIUM LEVEL 9.8 MG/DL (8.3-10.6); CARBON DIOXIDE LEVEL 31 MMOL/L (20-31); CHLORIDE LEVEL 101 MMOL/L (98-107); CREATININE FOR GFR 0.72 MG/DL (0.70-1.30); GLOMERULAR FILTRATION RATE > 60.0 (>49); GLUCOSE, FASTING 96 MG/DL (74-106); POTASSIUM SERUM 4.2 MMOL/L (3.5-5.1); SODIUM LEVEL 137 MMOL/L (136-145); TOTAL PROTEIN 6.9 G/DL (5.7-8.2)
[2024-05-20 18:20] LABS: VITAMIN B12 LEVEL 438 PG/ML (211-911)
[2024-05-20 18:21] LABS: FOLATE 15.6 NG/ML (>5.4)
== END ==
LOC: M SFHCADAM 11:17
PROVIDERS: ATTEND Physician Assistant
DX: L13.9 Bullous disorder, unspecified (principal); M19.90 Unspecified osteoarthritis, unspecified site; R60.0 Localized edema; M79.2 Neuralgia and neuritis, unspecified

== ENCOUNTER → 2024-07-28 | Outpatient (CLI) | payer MEDICARE | LOC: M ADAMS 10:30 | PROVIDERS: ATTEND Internal Medicine | DX: M47.817 Spondylosis without myelopathy or radiculopathy, lumbosacral region (principal); M25.50 Pain in unspecified joint ==

== ENCOUNTER → 2024-07-28 | Outpatient (REF) | payer MEDICARE | LOC: M SFHCRHEU 09:48 | PROVIDERS: ATTEND Internal Medicine | DX: R21 Rash and other nonspecific skin eruption (principal) ==

== ENCOUNTER → 2024-08-25 | Outpatient (CLI) | payer MEDICARE | LOC: M RAD 07:13 | PROVIDERS: ATTEND Nurse Practitioner Adult Health | DX: R91.8 Other nonspecific abnormal finding of lung field (principal); J98.11 Atelectasis ==

== ENCOUNTER → 2024-09-09 | Outpatient (REF) | payer MEDICARE ==
[2024-09-09 15:14] LABS: HEMATOCRIT 47.9 % (42.0-52.0); MEAN CORPUSCULAR HEMOGLOBIN 30.8 pg (27.0-33.0); MEAN CORPUSCULAR HGB CONC 33.4 g/dl (32.0-36.5); MEAN CORPUSCULAR VOLUME 92.1 fl (80.0-96.0); PLATELET COUNT, AUTOMATED 223 10^3/uL (150-450)
[2024-09-09 15:37] LABS: HEMOGLOBIN A1c 5.4 % (4.0-6.0)
[2024-09-09 15:42] LABS: PSA SCREENING 0.43 NG/ML (< 4.00)
[2024-09-09 15:43] LABS: ALBUMIN 3.8 G/DL (3.2-5.2); ALKALINE PHOSPHATASE 83 U/L (40-129); ALT/SGPT 24 U/L (7.0-40); AST/SGOT 13 U/L (<34); BILIRUBIN,TOTAL 0.5 MG/DL (0.3-1.2); BLOOD UREA NITROGEN 18 MG/DL (9-23); CALCIUM LEVEL 9.6 MG/DL (8.3-10.6); CARBON DIOXIDE LEVEL 31 MMOL/L (20-31); CHLORIDE LEVEL 104 MMOL/L (98-107); CHOLESTEROL LEVEL 193 MG/DL (<200); CHOLESTEROL RISK RATIO 2.56 (<5); GLOMERULAR FILTRATION RATE > 60.0 (>49); GLUCOSE, FASTING 103 MG/DL (74-106); HDL CHOLESTEROL 75.3 MG/DL (>40); LDL CHOLESTEROL 39.3 MG/DL (<100); NON-HDL-C 117.7 MG/DL; POTASSIUM SERUM 4.3 MMOL/L (3.5-5.1); SODIUM LEVEL 140 MMOL/L (136-145); TOTAL PROTEIN 7.1 G/DL (5.7-8.2); TRIGLYCERIDES LEVEL 392 MG/DL (<150)
== END ==
LOC: M SFHCADAM 08:21
PROVIDERS: ATTEND Physician Assistant
DX: J02.9 Acute pharyngitis, unspecified (principal); J40 Bronchitis, not specified as acute or chronic; I10 Essential (primary) hypertension; E78.2 Mixed hyperlipidemia; F17.211 Nicotine dependence, cigarettes, in remission; Z12.5 Encounter for screening for malignant neoplasm of prostate
CPT/HCPCS: 80053; 80061; 83036; 85027; G0103

== ENCOUNTER → 2024-10-17 | Outpatient (REF) | payer MEDICARE ==
[~2024-10-17] MED LIST changes: -FLOM0.4C39 PO; +TAMS-18 PO
[2024-10-17 15:27] LABS: PERCENT SATURATION 27.7 % (19.7-50.0)
[2024-10-17 15:29] LABS: FERRITIN 31.6 NG/ML (10.5-307.3); TOTAL 25(OH) VITAMIN D 37.6 NG/ML (20.0-100.0)
== END ==
LOC: M SFHCRHEU 11:45
PROVIDERS: ATTEND Internal Medicine
DX: M25.50 Pain in unspecified joint (principal); R53.83 Other fatigue; Z79.899 Other long term (current) drug therapy

== ENCOUNTER → 2025-02-25 | Outpatient (REF) | payer MEDICARE ==
[2025-02-25 14:39] LABS: ALT/SGPT 25 U/L (7.0-40); AST/SGOT 19 U/L (<34); CALCIUM LEVEL 9.7 MG/DL (8.3-10.6); CARBON DIOXIDE LEVEL 28 MMOL/L (20-31); CHLORIDE LEVEL 105 MMOL/L (98-107); CREATININE FOR GFR 0.84 MG/DL (0.70-1.30); GLOMERULAR FILTRATION RATE > 90.0 (>49); POTASSIUM SERUM 4.4 MMOL/L (3.5-5.1); SODIUM LEVEL 143 MMOL/L (136-145)
== END ==
LOC: M SFHCADAM 07:34
PROVIDERS: ATTEND Physician Assistant
DX: Z00.00 Encounter for general adult medical examination without abnormal findings (principal); I10 Essential (primary) hypertension; R60.0 Localized edema